=== PATIENT | male | born 1955 | race Caucasian/White ===

== ENCOUNTER 2018-05-24 08:15 | Outpatient (RCR) | payer OTHER, SELFPAY ==
--- NOTE | 2018-05-07 14:04 | PT.OIE ---
Current Diagnoses Bilateral primary osteoarthritis of hip (05/02/18) Unilateral primary osteoarthritis, right knee (05/02/18) Other specified postprocedural states (05/02/18) Provider Visit Care Team Role Provider Type Sanya Guerrero MD Primary Care Provider Physician Specialty: Family Practice Address: [address] [place] [address], [id number] Email: [email or web address] Shailesh Tobin MD Attending Provider Physician Specialty: Orthopedic Surgery Address: [address] [place] [address], [address] Email: [email or web address] Physical Therapy Initial Evaluation PT-OP-A Visit Information Start: 05/02/18 17:07 Freq: Status: Active Protocol: Document 05/02/18 17:13 EA (Rec: 05/02/18 17:27 EA [id number]) Out-Patient Physical Therapy Visit Information Visit Information Visit Type Initial Evaluation Visit Start Time 09:45 Visit Stop Time 10:30 Total Visit Minutes 45 Visit Number 1 Evaluation Information Evaluation Date 05/02/18 PT-OP-B Current Condition Start: 05/02/18 17:07 Freq: Status: Active Protocol: Document 05/02/18 17:13 EA (Rec: 05/02/18 17:27 EA [id number]) Current Condition History of Current Condition Onset Date 10 years ago Current Complaints gait difficulty due weakness on both LE's. History of Current Condition 09/2016-S/P thoracic surgery T9-T11 secondary to nerve compression which resulted to lower abdominal and LE weakness. Pt reports symptoms improved right after the surgery; states had pool therapy at [facility] and was discharged on January 2017 with LE's strength and sensory deficits. Patient had 2007 lumbar surgery due to LE weakness and was revised on 2017 due to increased in LE's symptoms. Prior Treatments and Tests 2007 - first lumbar surgery 2009- Lumbar surgery revisions 2017- Thoracic surgery (T9-T11 ) [id number] multiple cortison shots to low back Future Testing and Treatments Planned None at this time. Treatment Goals Patient/Caregiver Goals 1. Strengthen both LE so he could drive his car again 2. Be able to walk more than 500 ft with walker 3. be able to walk > 50 ft with STC Prior Functional Status Baseline Function- ADL's Independent Baseline Function- Mobility Independent Baseline Function- Other Patient was able to use ST cane and able to ambulate more than 100 ft prior to September 2016 surgery. Current Functional Impairments (Reported) Functional Limitations- ADL's Unable to drive a car Functional Limitations- Mobility/Gait Indep with walking aid with limited distance ambulation Functional Limitations- Work/School Disabled Personal Factors Other Personal Factors That May Effect Chronicity of the condition; Therapy/Recovery previous formal PT with limited results. Depression, occasional A-fib, Right knee OA, Excess body weight. PT-OP-C Subjective Start: 05/02/18 17:07 Freq: Status: Active Protocol: Document 05/02/18 17:10 EA (Rec: 05/07/18 07:29 EA [id number]) OP-PT Subjective Patient Comments Patient Comments Pt reports his low back pain is much improve at this time and his main concern is lower extremity weakness; states he feels that previous pool therapy helped him and would like undergo physical therapy in the pool again. Patient Reported Progress Improving Patient Questionnaires Lower Extremity Functional Scale LEFS Score 11 LEFS Impairment 80 to 99% Impaired (Score 1-16 ) Oswestry Low Back Index Oswestry Impairment 20 to 39% Impaired (Score 20- 39) PT-OP-D Balance Start: 05/02/18 17:07 Freq: Status: Active Protocol: Document 05/02/18 17:10 EA (Rec: 05/07/18 07:29 EA [id number]) OP-PT Balance Assessment Sitting Balance Static Sitting Balance Ability Good Dynamic Sitting Balance Ability Good Standing Balance Static Standing Balance Ability Good Dynamic Standing Balance Ability Fair Device Used 4 WW Standing Balance Comments Poor dynamic balance with no device to use. Montanez Fall Scale Copyright Permission Lisseth MARS, Lisseth RM, Nakita SJ. Development of a scale to identify the fall- prone patient. Can J Aging 1989;8;366-7. Coreen Montanez (2009). Preventing patient falls. (2nd ed). [place]: [place]. PT-OP-E Functional Tests Start: 05/02/18 17:07 Freq: Status: Active Protocol: Document 05/02/18 17:10 EA (Rec: 05/07/18 07:29 EA [id number]) Functional Tests Dynamic Gait Index (DGI) Score 13 DGI Impairment Rating 40 to <60% Impaired (Score 10- 14) Five Times Sit to Stand Test Score 3 reps in 10 seconds with hand support PT-OP-G Mobility & Gait Start: 05/02/18 17:07 Freq: Status: Active Protocol: Document 05/02/18 17:15 EA (Rec: 05/07/18 08:19 EA [id number]) OP Mobility Evaluation Functional Movements Squats Moderate difficulty PT-OP-H Neuro Start: 05/02/18 17:07 Freq: Status: Active Protocol: Document 05/02/18 17:10 EA (Rec: 05/07/18 07:29 EA [id number]) Sensation Evaluation Gross Sensation Gross Sensation Left LE Impaired Right LE Impaired Sensation Description Numbness Dermatome Impairments L2 L3 L4 L5 S1 S2 Deep Tendon Reflex & Clonus Assessment Deep Tendon Reflex Achilles Deep Tendon Reflex 1+ Diminished Patellar Deep Tendon Reflex 1+ Diminished Ankle Clonus Bilateral Clonus Assessment Absent PT-OP-J Posture/Palpation/Skin Start: 05/02/18 17:07 Freq: Status: Active Protocol: Document 05/02/18 17:10 EA (Rec: 05/07/18 07:29 EA [id number]) Posture Evaluation Position Standing Evaluation View Lateral Head/C-Spine Posture Forward Head T-Spine Posture Increased Kyphosis PT-OP-M Strength Start: 05/02/18 17:07 Freq: Status: Active Protocol: Document 05/02/18 17:10 EA (Rec: 05/07/18 07:29 EA [id number]) Trunk Strength Trunk Manual Muscle Testing Flexion 4- Good- Extension 4- Good- Rotation Left 4- Good- Rotation Right 4- Good- Lateral Flexion Left 4- Good- Lateral Flexion Right 4- Good- Hip Strength Hip Manual Muscle Testing Right Flexion (L2) 4- Good- Extension (S1) 3+ Fair+ Abduction 3 Fair Adduction 3 Fair External Rotation 3 Fair Internal Rotation 3 Fair Left Flexion (L2) 4- Good- Extension (S1) 3+ Fair+ Abduction 3 Fair Adduction 3 Fair External Rotation 3 Fair Internal Rotation 3 Fair Knee Strength Knee Manual Muscle Testing Right Flexion (S2) 4- Good- Extension (L3) 4- Good- Left Flexion (S2) 2+ Poor+ Extension (L3) 4- Good- Ankle/Foot Strength Ankle and Foot Manual Muscle Testing Right Dorsiflexion (L4) 2- Poor- Plantarflexion (S1) 3- Fair- Inversion 3- Fair- Eversion (S1) 3- Fair- Left Dorsiflexion (L4) 3 Fair Plantarflexion (S1) 3+ Fair+ Inversion 3 Fair Eversion (S1) 3 Fair PT-OP-Q Treatments Start: 05/02/18 17:07 Freq: Status: Active Protocol: Document 05/02/18 17:10 EA (Rec: 05/07/18 07:29 EA [id number]) Self-Care/Home Management Treatment Education Patient Education Body Mechanics Fall Risk Home Exercise Program Posture Safety PT-OP-T Assessment and Plan Start: 05/02/18 17:07 Freq: Status: Active Protocol: Document 05/02/18 17:10 EA (Rec: 05/07/18 07:29 EA [id number]) Physical Therapy Assessment Rehab Potential Rehabilitation Potential Fair Evaluation Complexity Number of Personal Factors/Comorbidities 3 or More Number of Body Systems Impaired 3 Clinical Presentation at Evaluation Evolving Impairments Impairments Activity Tolerance Balance Functional Mobility Gait Pain Posture Soft Tissue Mobility Strength Other Concerns Fall Risk yes Goals Four Impairment LEFS impairment score of 11/80 [place] Code Enforcement Officer Goal (LTG) Pt will have LEFS score of at least 40 LTG Duration 4 wks Three Impairment Decreased ambulation tolerance Senior Care Goal (LTG) Pt will ambulate more than 300 ft with FWW LTG Duration 4 wks Two Impairment Impaired static/dynamic balance [place] Code Enforcement Officer Goal (LTG) Pt will increase static and dynamic balance to prevent falls and improve functional transfers and mobility LTG Duration 4 wks One Impairment Decreased both LE's strength [place] Code Enforcement Officer Goal (LTG) Patient will increase both LE' s strength by 1/2- 1 grade to enhance static and dynamic balance control, enhance distance mobility. LTG Duration 4 wks Assessment Summary Assessment Pleasant 62 y/o M patient with history of multiple lumbar surgeries and recent thoracic surgery. Today patient presented with both LE's strength and light touch/pain/ sensory deficits from hip down to ankle region. No noted signs of coordination and proprioception deficits. Due to muscular and sensory deficits , patient exhibits impaired functional mobility, impaired standing tolerance, and balance. Patient will benefit with skilled PT particularly the pool therapy to address the aforementioned deficits. Physical Therapy Plan Frequency and Duration Frequency of Treatment 2x/Week Plan of Care Start Date 05/02/18 Plan of Care End Date 07/11/18 Therapeutic Interventions Therapeutic Interventions Aquatic Therapy Balance Training Gait Training Home Exercise Program Manual Therapy Patient/Caregiver Education Self-Care/Home Management Soft Tissue Mobilization Therapeutic Exercises Modalities Cold Pack/Ice Massage Next Visit Focus/Plan Next Note Type Treatment Note
--- NOTE | 2018-05-07 14:04 | PT.OPPOC ---
Current Diagnoses Bilateral primary osteoarthritis of hip (05/02/18) Unilateral primary osteoarthritis, right knee (05/02/18) Other specified postprocedural states (05/02/18) Provider Visit Care Team Role Provider Type Sanya Guerrero MD Primary Care Provider Physician Specialty: Family Practice Address: [address] [place] [address], [address] Email: [email or web address] Shailesh Tobin MD Attending Provider Physician Specialty: Orthopedic Surgery Address: [address] [place] [address], [address] Email: [email or web address] Plan Of Care PT-OP-T Assessment and Plan Start: 05/02/18 17:07 Freq: Status: Active Protocol: Document 05/02/18 17:10 EA (Rec: 05/07/18 07:29 EA [id number]) Physical Therapy Assessment Rehab Potential Rehabilitation Potential Fair Evaluation Complexity Number of Personal Factors/Comorbidities 3 or More Number of Body Systems Impaired 3 Clinical Presentation at Evaluation Evolving Impairments Impairments Activity Tolerance Balance Functional Mobility Gait Pain Posture Soft Tissue Mobility Strength Other Concerns Fall Risk yes Goals Four Impairment LEFS impairment score of 11/80 Racebook Writer Goal (LTG) Pt will have LEFS score of at least 40 LTG Duration 4 wks Three Impairment Decreased ambulation tolerance Racebook Writer Goal (LTG) Pt will ambulate more than 300 ft with FWW LTG Duration 4 wks Two Impairment Impaired static/dynamic balance Racebook Writer Goal (LTG) Pt will increase static and dynamic balance to prevent falls and improve functional transfers and mobility LTG Duration 4 wks One Impairment Decreased both LE's strength Racebook Writer Goal (LTG) Patient will increase both LE' s strength by 1/2- 1 grade to enhance static and dynamic balance control, enhance distance mobility. LTG Duration 4 wks Assessment Summary Assessment Pleasant 62 y/o M patient with history of multiple lumbar surgeries and recent thoracic surgery. Today patient presented with both LE's strength and light touch/pain/ sensory deficits from hip down to ankle region. No noted signs of coordination and proprioception deficits. Due to muscular and sensory deficits , patient exhibits impaired functional mobility, impaired standing tolerance, and balance. Patient will benefit with skilled PT particularly the pool therapy to address the aforementioned deficits. Physical Therapy Plan Frequency and Duration Frequency of Treatment 2x/Week Plan of Care Start Date 05/02/18 Plan of Care End Date 07/11/18 Therapeutic Interventions Therapeutic Interventions Aquatic Therapy Balance Training Gait Training Home Exercise Program Manual Therapy Patient/Caregiver Education Self-Care/Home Management Soft Tissue Mobilization Therapeutic Exercises Modalities Cold Pack/Ice Massage Next Visit Focus/Plan Next Note Type Treatment Note Plan of Care Dates Plan of Care Start Date 05/02/18 Plan of Care End Date 07/11/18 Please Sign and Return: I have reviewed this Plan of Care and certify that the skilled therapy services above are required to meet the patient?s needs. Physician Signature Date Printed Name and Credentials Clinical Instructor Signature Printed Name and Credentials
--- NOTE | 2018-05-09 09:01 | PT.OTN ---
Current Diagnoses Bilateral primary osteoarthritis of hip (05/09/18) Unilateral primary osteoarthritis, right knee (05/09/18) Other specified postprocedural states (05/09/18) Physical Therapy Treatment Note PT-OP-A Visit Information Start: 05/02/18 17:07 Freq: Status: Active Protocol: Document 05/09/18 08:14 EA (Rec: 05/09/18 09:01 EA [id number]) Out-Patient Physical Therapy Visit Information Visit Information Visit Type Treatment Note Visit Start Time 08:15 Visit Stop Time 09:00 Total Visit Minutes 45 Visit Number 2 PT-OP-B Current Condition Start: 05/02/18 17:07 Freq: Status: Active Protocol: Document 05/02/18 17:13 EA (Rec: 05/02/18 17:27 EA [id number]) Current Condition History of Current Condition Onset Date 10 years ago Current Complaints gait difficulty due weakness on both LE's. History of Current Condition 09/2016-S/P thoracic surgery T9-T11 secondary to nerve compression which resulted to lower abdominal and LE weakness. Pt reports symptoms improved right after the surgery; states had pool therapy at [facility] and was discharged on January 2017 with LE's strength and sensory deficits. Patient had 2007 lumbar surgery due to LE weakness and was revised on 2017 due to increased in LE's symptoms. Prior Treatments and Tests 2007 - first lumbar surgery 2009- Lumbar surgery revisions 2016- Thoracic surgery (T9-T11 ) [id number] multiple cortison shots to low back Future Testing and Treatments Planned None at this time. Treatment Goals Patient/Caregiver Goals 1. Strengthen both LE so he could drive his car again 2. Be able to walk more than 500 ft with walker 3. be able to walk > 50 ft with STC Prior Functional Status Baseline Function- ADL's Independent Baseline Function- Mobility Independent Baseline Function- Other Patient was able to use ST cane and able to ambulate more than 100 ft prior to September 2016 surgery. Current Functional Impairments (Reported) Functional Limitations- ADL's Unable to drive a car Functional Limitations- Mobility/Gait Indep with walking aid with limited distance ambulation Functional Limitations- Work/School Disabled Personal Factors Other Personal Factors That May Effect Chronicity of the condition; Therapy/Recovery previous formal PT with limited results. Depression, occasional A-fib, Right knee OA, Excess body weight. PT-OP-C Subjective Start: 05/02/18 17:07 Freq: Status: Active Protocol: Document 05/09/18 08:14 EA (Rec: 05/09/18 09:01 EA [id number]) OP-PT Subjective Patient Comments Patient Comments Patient reports that having a lumbar injection medication is helping his both legs sensory back; states that his main goal is to improve his mobility; states back pain I can describes is good pain. Patient Reported Progress Improving PT-OP-D Balance Start: 05/02/18 17:07 Freq: Status: Active Protocol: Document 05/02/18 17:10 EA (Rec: 05/07/18 07:29 EA [id number]) OP-PT Balance Assessment Sitting Balance Static Sitting Balance Ability Good Dynamic Sitting Balance Ability Good Standing Balance Static Standing Balance Ability Good Dynamic Standing Balance Ability Fair Device Used 4 WW Standing Balance Comments Poor dynamic balance with no device to use. Montanez Fall Scale Copyright Permission Lisseth MARS, Lisseth RM, Nakita SJ. Development of a scale to identify the fall- prone patient. Can J Aging 1989;8;366-7. Coreen Montanez (2009). Preventing patient falls. (2nd ed). [place]: [place]. PT-OP-E Functional Tests Start: 05/02/18 17:07 Freq: Status: Active Protocol: Document 05/02/18 17:10 EA (Rec: 05/07/18 07:29 EA [id number]) Functional Tests Dynamic Gait Index (DGI) Score 13 DGI Impairment Rating 40 to <60% Impaired (Score 10- 14) Five Times Sit to Stand Test Score 3 reps in 10 seconds with hand support PT-OP-G Mobility & Gait Start: 05/02/18 17:07 Freq: Status: Active Protocol: Document 05/02/18 17:15 EA (Rec: 05/07/18 08:19 EA [id number]) OP Mobility Evaluation Functional Movements Squats Moderate difficulty PT-OP-H Neuro Start: 05/02/18 17:07 Freq: Status: Active Protocol: Document 05/02/18 17:10 EA (Rec: 05/07/18 07:29 EA [id number]) Sensation Evaluation Gross Sensation Gross Sensation Left LE Impaired Right LE Impaired Sensation Description Numbness Dermatome Impairments L2 L3 L4 L5 S1 S2 Deep Tendon Reflex & Clonus Assessment Deep Tendon Reflex Achilles Deep Tendon Reflex 1+ Diminished Patellar Deep Tendon Reflex 1+ Diminished Ankle Clonus Bilateral Clonus Assessment Absent PT-OP-J Posture/Palpation/Skin Start: 05/02/18 17:07 Freq: Status: Active Protocol: Document 05/02/18 17:10 EA (Rec: 05/07/18 07:29 EA [id number]) Posture Evaluation Position Standing Evaluation View Lateral Head/C-Spine Posture Forward Head T-Spine Posture Increased Kyphosis PT-OP-M Strength Start: 05/02/18 17:07 Freq: Status: Active Protocol: Document 05/02/18 17:10 EA (Rec: 05/07/18 07:29 EA [id number]) Trunk Strength Trunk Manual Muscle Testing Flexion 4- Good- Extension 4- Good- Rotation Left 4- Good- Rotation Right 4- Good- Lateral Flexion Left 4- Good- Lateral Flexion Right 4- Good- Hip Strength Hip Manual Muscle Testing Right Flexion (L2) 4- Good- Extension (S1) 3+ Fair+ Abduction 3 Fair Adduction 3 Fair External Rotation 3 Fair Internal Rotation 3 Fair Left Flexion (L2) 4- Good- Extension (S1) 3+ Fair+ Abduction 3 Fair Adduction 3 Fair External Rotation 3 Fair Internal Rotation 3 Fair Knee Strength Knee Manual Muscle Testing Right Flexion (S2) 4- Good- Extension (L3) 4- Good- Left Flexion (S2) 2+ Poor+ Extension (L3) 4- Good- Ankle/Foot Strength Ankle and Foot Manual Muscle Testing Right Dorsiflexion (L4) 2- Poor- Plantarflexion (S1) 3- Fair- Inversion 3- Fair- Eversion (S1) 3- Fair- Left Dorsiflexion (L4) 3 Fair Plantarflexion (S1) 3+ Fair+ Inversion 3 Fair Eversion (S1) 3 Fair PT-OP-Q Treatments Start: 05/02/18 17:07 Freq: Status: Active Protocol: Document 05/09/18 08:14 EA (Rec: 05/09/18 09:01 EA [id number]) Cardio Equipment Recumbent Stepper (Sci-Fit) Duration (Minutes) 10 Resistance 2-3 Seat Position 20 Gym Equipment Cable Column (Body Solid) Leg Extension Resistance 20 Reps/Time x 12 reps x 2 Hip Adduction Resistance 50LBS Reps/Time X 15 REPS X 2 SETS Hip Abduction Resistance 10 Reps/Time X 12 X 2 SETS Shuttle Recovery Unilateral Squats Details 50 Shuttle Recovery Platform Stable Reps/Time X 15 REPS X 2 SETS Bilateral Squats Resistance 112# Shuttle Recovery Platform Stable Reps/Time 12-15 REPS X 2 PT-OP-T Assessment and Plan Start: 05/02/18 17:07 Freq: Status: Active Protocol: Document 05/09/18 08:14 EA (Rec: 05/09/18 09:01 EA [id number]) Physical Therapy Assessment Assessment Summary Assessment Patient tolerated treatment well. Cont with current plan. Physical Therapy Plan Next Visit Focus/Plan Next Note Type Treatment Note Next Visit Plan Provide HEP.
--- NOTE | 2018-05-17 09:19 | PT.OTN ---
Current Diagnoses Bilateral primary osteoarthritis of hip (05/17/18) Unilateral primary osteoarthritis, right knee (05/17/18) Other specified postprocedural states (05/17/18) Physical Therapy Treatment Note PT-OP-A Visit Information Start: 05/02/18 17:07 Freq: Status: Active Protocol: Document 05/17/18 08:14 SAK (Rec: 05/17/18 09:07 SAK [id number]) Out-Patient Physical Therapy Visit Information Visit Information Visit Type Treatment Note Visit Start Time 08:15 Visit Stop Time 09:00 Total Visit Minutes 45 Visit Number 3 PT-OP-B Current Condition Start: 05/02/18 17:07 Freq: Status: Active Protocol: Document 05/02/18 17:13 EA (Rec: 05/02/18 17:27 EA [id number]) Current Condition History of Current Condition Onset Date 10 years ago Current Complaints gait difficulty due weakness on both LE's. History of Current Condition 09/2016-S/P thoracic surgery T9-T11 secondary to nerve compression which resulted to lower abdominal and LE weakness. Pt reports symptoms improved right after the surgery; states had pool therapy at [facility] and was discharged on January 2017 with LE's strength and sensory deficits. Patient had 2007 lumbar surgery due to LE weakness and was revised on 2017 due to increased in LE's symptoms. Prior Treatments and Tests 2007 - first lumbar surgery 2009- Lumbar surgery revisions 2016- Thoracic surgery (T9-T11 ) [id number] multiple cortison shots to low back Future Testing and Treatments Planned None at this time. Treatment Goals Patient/Caregiver Goals 1. Strengthen both LE so he could drive his car again 2. Be able to walk more than 500 ft with walker 3. be able to walk > 50 ft with STC Prior Functional Status Baseline Function- ADL's Independent Baseline Function- Mobility Independent Baseline Function- Other Patient was able to use ST cane and able to ambulate more than 100 ft prior to September 2016 surgery. Current Functional Impairments (Reported) Functional Limitations- ADL's Unable to drive a car Functional Limitations- Mobility/Gait Indep with walking aid with limited distance ambulation Functional Limitations- Work/School Disabled Personal Factors Other Personal Factors That May Effect Chronicity of the condition; Therapy/Recovery previous formal PT with limited results. Depression, occasional A-fib, Right knee OA, Excess body weight. PT-OP-C Subjective Start: 05/02/18 17:07 Freq: Status: Active Protocol: Document 05/17/18 08:14 SAK (Rec: 05/17/18 09:07 SAK [id number]) OP-PT Subjective Patient Comments Patient Comments 3 days after last session reports significant increase in pain and difficulty walking ; layed down on bed, took Flexeril, stayed in bed, yesterday much better. Sees Dr. Bear 05/31. States shots seem to be working, increasing feeling in LE's. PT-OP-D Balance Start: 05/02/18 17:07 Freq: Status: Active Protocol: Document 05/02/18 17:10 EA (Rec: 05/07/18 07:29 EA [id number]) OP-PT Balance Assessment Sitting Balance Static Sitting Balance Ability Good Dynamic Sitting Balance Ability Good Standing Balance Static Standing Balance Ability Good Dynamic Standing Balance Ability Fair Device Used 4 WW Standing Balance Comments Poor dynamic balance with no device to use. Montanez Fall Scale Copyright Permission Lisseth MARS, Lisseth RM, Nakita SJ. Development of a scale to identify the fall- prone patient. Can J Aging 1989;8;366-7. Coreen Montanez (2009). Preventing patient falls. (2nd ed). [place]: [place]. PT-OP-E Functional Tests Start: 05/02/18 17:07 Freq: Status: Active Protocol: Document 05/02/18 17:10 EA (Rec: 05/07/18 07:29 EA [id number]) Functional Tests Dynamic Gait Index (DGI) Score 13 DGI Impairment Rating 40 to <60% Impaired (Score 10- 14) Five Times Sit to Stand Test Score 3 reps in 10 seconds with hand support PT-OP-G Mobility & Gait Start: 05/02/18 17:07 Freq: Status: Active Protocol: Document 05/02/18 17:15 EA (Rec: 05/07/18 08:19 EA [id number]) OP Mobility Evaluation Functional Movements Squats Moderate difficulty PT-OP-H Neuro Start: 05/02/18 17:07 Freq: Status: Active Protocol: Document 05/02/18 17:10 EA (Rec: 05/07/18 07:29 EA [id number]) Sensation Evaluation Gross Sensation Gross Sensation Left LE Impaired Right LE Impaired Sensation Description Numbness Dermatome Impairments L2 L3 L4 L5 S1 S2 Deep Tendon Reflex & Clonus Assessment Deep Tendon Reflex Achilles Deep Tendon Reflex 1+ Diminished Patellar Deep Tendon Reflex 1+ Diminished Ankle Clonus Bilateral Clonus Assessment Absent PT-OP-J Posture/Palpation/Skin Start: 05/02/18 17:07 Freq: Status: Active Protocol: Document 05/02/18 17:10 EA (Rec: 05/07/18 07:29 EA [id number]) Posture Evaluation Position Standing Evaluation View Lateral Head/C-Spine Posture Forward Head T-Spine Posture Increased Kyphosis PT-OP-M Strength Start: 05/02/18 17:07 Freq: Status: Active Protocol: Document 05/02/18 17:10 EA (Rec: 05/07/18 07:29 EA [id number]) Trunk Strength Trunk Manual Muscle Testing Flexion 4- Good- Extension 4- Good- Rotation Left 4- Good- Rotation Right 4- Good- Lateral Flexion Left 4- Good- Lateral Flexion Right 4- Good- Hip Strength Hip Manual Muscle Testing Right Flexion (L2) 4- Good- Extension (S1) 3+ Fair+ Abduction 3 Fair Adduction 3 Fair External Rotation 3 Fair Internal Rotation 3 Fair Left Flexion (L2) 4- Good- Extension (S1) 3+ Fair+ Abduction 3 Fair Adduction 3 Fair External Rotation 3 Fair Internal Rotation 3 Fair Knee Strength Knee Manual Muscle Testing Right Flexion (S2) 4- Good- Extension (L3) 4- Good- Left Flexion (S2) 2+ Poor+ Extension (L3) 4- Good- Ankle/Foot Strength Ankle and Foot Manual Muscle Testing Right Dorsiflexion (L4) 2- Poor- Plantarflexion (S1) 3- Fair- Inversion 3- Fair- Eversion (S1) 3- Fair- Left Dorsiflexion (L4) 3 Fair Plantarflexion (S1) 3+ Fair+ Inversion 3 Fair Eversion (S1) 3 Fair PT-OP-Q Treatments Start: 05/02/18 17:07 Freq: Status: Active Protocol: Document 05/17/18 08:14 SAK (Rec: 05/17/18 09:07 SAK [id number]) Cardio Equipment Recumbent Stepper (Sci-Fit) Duration (Minutes) 10 Resistance 2-3 Seat Position 20 Gym Equipment Cable Column (Body Solid) Leg Extension Resistance 30 Reps/Time x 12 reps x 2 Shuttle Recovery Unilateral Squats Details 50 Shuttle Recovery Platform Stable Reps/Time X 15 REPS X 2 SETS Bilateral Squats Resistance 112# Shuttle Recovery Platform Stable Reps/Time 12-15 REPS X 2 Self-Care/Home Management Treatment Education Other Education Education regarding proper height for assistive device; need for different walker. Patient reports [facility] not [facility] so he and his ordered current walker from [employer]; he states he understands and will search for better fitting walker. PT-OP-T Assessment and Plan Start: 05/02/18 17:07 Freq: Status: Active Protocol: Document 05/17/18 08:14 [facility] (Rec: 05/17/18 09:07 [facility] [id number]) Physical Therapy Assessment Impairments Impairments Activity Tolerance Balance Functional Mobility Gait Pain Posture Soft Tissue Mobility Strength Other Concerns Fall Risk yes Goals Four Impairment LEFS impairment score of 11/80 Group Home Goal (LTG) Pt will have LEFS score of at least 40 LTG Duration 4 wks Three Impairment Decreased ambulation tolerance Financial Counselor Goal (LTG) Pt will ambulate more than 300 ft with FWW LTG Duration 4 wks Two Impairment Impaired static/dynamic balance Financial Counselor Goal (LTG) Pt will increase static and dynamic balance to prevent falls and improve functional transfers and mobility LTG Duration 4 wks One Impairment Decreased both LE's strength Financial Counselor Goal (LTG) Patient will increase both LE' s strength by 1/2- 1 grade to enhance static and dynamic balance control, enhance distance mobility. LTG Duration 4 wks Assessment Summary Assessment Despite adverse response of muscle spasms and pain after first PT treatment patient didn't want to ease up on workout, though at end requested we not do hip ab/ad machine due to fatigue and muscle soreness. Refused ice, stated he will ice back and thighs at home. Demonstrated good understanding of need for better fitting walker. States his forearm crutches are correct height for him. Physical Therapy Plan Frequency and Duration Frequency of Treatment 2x/Week Plan of Care Start Date 05/02/18 Plan of Care End Date 07/11/18 Therapeutic Interventions Therapeutic Interventions Aquatic Therapy Balance Training Gait Training Home Exercise Program Manual Therapy Patient/Caregiver Education Self-Care/Home Management Soft Tissue Mobilization Therapeutic Exercises Modalities Cold Pack/Ice Massage Next Visit Focus/Plan Next Note Type Treatment Note Next Visit Plan Patient to bring forearm crutches, will do gait training, cont with ther ex, possibly decrease resistance, modify as indicated based on response.
--- NOTE | 2018-05-22 13:46 | PT.OTN ---
Current Diagnoses Bilateral primary osteoarthritis of hip (05/22/18) Unilateral primary osteoarthritis, right knee (05/22/18) Other specified postprocedural states (05/22/18) Physical Therapy Treatment Note PT-OP-A Visit Information Start: 05/02/18 17:07 Freq: Status: Active Protocol: Document 05/22/18 12:23 EA (Rec: 05/22/18 13:02 EA [id number]) Out-Patient Physical Therapy Visit Information Visit Information Visit Start Time 12:15 Visit Stop Time 13:00 Visit Number 4 PT-OP-B Current Condition Start: 05/02/18 17:07 Freq: Status: Active Protocol: Document 05/02/18 17:13 EA (Rec: 05/02/18 17:27 EA [id number]) Current Condition History of Current Condition Onset Date 10 years ago Current Complaints gait difficulty due weakness on both LE's. History of Current Condition 09/2016-S/P thoracic surgery T9-T11 secondary to nerve compression which resulted to lower abdominal and LE weakness. Pt reports symptoms improved right after the surgery; states had pool therapy at [facility] and was discharged on January 2017 with LE's strength and sensory deficits. Patient had 2008 lumbar surgery due to LE weakness and was revised on 2017 due to increased in LE's symptoms. Prior Treatments and Tests 2007 - first lumbar surgery 2009- Lumbar surgery revisions 2016- Thoracic surgery (T9-T11 ) [id number] multiple cortison shots to low back Future Testing and Treatments Planned None at this time. Treatment Goals Patient/Caregiver Goals 1. Strengthen both LE so he could drive his car again 2. Be able to walk more than 500 ft with walker 3. be able to walk > 50 ft with STC Prior Functional Status Baseline Function- ADL's Independent Baseline Function- Mobility Independent Baseline Function- Other Patient was able to use ST cane and able to ambulate more than 100 ft prior to September 2016 surgery. Current Functional Impairments (Reported) Functional Limitations- ADL's Unable to drive a car Functional Limitations- Mobility/Gait Indep with walking aid with limited distance ambulation Functional Limitations- Work/School Disabled Personal Factors Other Personal Factors That May Effect Chronicity of the condition; Therapy/Recovery previous formal PT with limited results. Depression, occasional A-fib, Right knee OA, Excess body weight. PT-OP-C Subjective Start: 05/02/18 17:07 Freq: Status: Active Protocol: Document 05/22/18 12:23 EA (Rec: 05/22/18 13:02 EA [id number]) OP-PT Subjective Patient Comments Patient Comments Pt reports previous session did not give any pain or soreness; states he has been on feet at home feels his mobility is increasing. Pt stated forgot to bring two canes and will plan to bring next session. PT-OP-D Balance Start: 05/02/18 17:07 Freq: Status: Active Protocol: Document 05/02/18 17:10 EA (Rec: 05/07/18 07:29 EA [id number]) OP-PT Balance Assessment Sitting Balance Static Sitting Balance Ability Good Dynamic Sitting Balance Ability Good Standing Balance Static Standing Balance Ability Good Dynamic Standing Balance Ability Fair Device Used 4 WW Standing Balance Comments Poor dynamic balance with no device to use. Montanez Fall Scale Copyright Permission Lisseth MARS, Lisseth RM, Nakita SJ. Development of a scale to identify the fall- prone patient. Can J Aging 1989;8;366-7. Coreen Montanez (2009). Preventing patient falls. (2nd ed). [place]: [place]. PT-OP-E Functional Tests Start: 05/02/18 17:07 Freq: Status: Active Protocol: Document 05/02/18 17:10 EA (Rec: 05/07/18 07:29 EA [id number]) Functional Tests Dynamic Gait Index (DGI) Score 13 DGI Impairment Rating 40 to <60% Impaired (Score 10- 14) Five Times Sit to Stand Test Score 3 reps in 10 seconds with hand support PT-OP-G Mobility & Gait Start: 05/02/18 17:07 Freq: Status: Active Protocol: Document 05/02/18 17:15 EA (Rec: 05/07/18 08:19 EA [id number]) OP Mobility Evaluation Functional Movements Squats Moderate difficulty PT-OP-H Neuro Start: 05/02/18 17:07 Freq: Status: Active Protocol: Document 05/02/18 17:10 EA (Rec: 05/07/18 07:29 EA [id number]) Sensation Evaluation Gross Sensation Gross Sensation Left LE Impaired Right LE Impaired Sensation Description Numbness Dermatome Impairments L2 L3 L4 L5 S1 S2 Deep Tendon Reflex & Clonus Assessment Deep Tendon Reflex Achilles Deep Tendon Reflex 1+ Diminished Patellar Deep Tendon Reflex 1+ Diminished Ankle Clonus Bilateral Clonus Assessment Absent PT-OP-J Posture/Palpation/Skin Start: 05/02/18 17:07 Freq: Status: Active Protocol: Document 05/02/18 17:10 EA (Rec: 05/07/18 07:29 EA [id number]) Posture Evaluation Position Standing Evaluation View Lateral Head/C-Spine Posture Forward Head T-Spine Posture Increased Kyphosis PT-OP-M Strength Start: 05/02/18 17:07 Freq: Status: Active Protocol: Document 05/02/18 17:10 EA (Rec: 05/07/18 07:29 EA [id number]) Trunk Strength Trunk Manual Muscle Testing Flexion 4- Good- Extension 4- Good- Rotation Left 4- Good- Rotation Right 4- Good- Lateral Flexion Left 4- Good- Lateral Flexion Right 4- Good- Hip Strength Hip Manual Muscle Testing Right Flexion (L2) 4- Good- Extension (S1) 3+ Fair+ Abduction 3 Fair Adduction 3 Fair External Rotation 3 Fair Internal Rotation 3 Fair Left Flexion (L2) 4- Good- Extension (S1) 3+ Fair+ Abduction 3 Fair Adduction 3 Fair External Rotation 3 Fair Internal Rotation 3 Fair Knee Strength Knee Manual Muscle Testing Right Flexion (S2) 4- Good- Extension (L3) 4- Good- Left Flexion (S2) 2+ Poor+ Extension (L3) 4- Good- Ankle/Foot Strength Ankle and Foot Manual Muscle Testing Right Dorsiflexion (L4) 2- Poor- Plantarflexion (S1) 3- Fair- Inversion 3- Fair- Eversion (S1) 3- Fair- Left Dorsiflexion (L4) 3 Fair Plantarflexion (S1) 3+ Fair+ Inversion 3 Fair Eversion (S1) 3 Fair PT-OP-Q Treatments Start: 05/02/18 17:07 Freq: Status: Active Protocol: Document 05/22/18 12:23 EA (Rec: 05/22/18 13:02 EA [id number]) Cardio Equipment Recumbent Stepper (Sci-Fit) Duration (Minutes) 10 Resistance 2-3 Seat Position 20 Gym Equipment Shuttle Recovery Unilateral Squats Details 75 Shuttle Recovery Platform Stable Reps/Time X 15 REPS X 2 SETS Bilateral Squats Resistance 125# Shuttle Recovery Platform Stable Reps/Time 12-15 REPS X 2 Therapeutic Exercises Standing Exercises 4 Standing Exercise Name // bars standin hip ABD Reps/Minutes x 10 reps x 2 sets 3 Standing Exercise Name // bars marching x 15 reps x 2 sets 2 Standing Exercise Name // bars standing tolerance with upright posture Reps/Minutes x 2 mins 1 Standing Exercise Name // bars sit to stand Reps/Minutes x 10 reps with support PT-OP-T Assessment and Plan Start: 05/02/18 17:07 Freq: Status: Active Protocol: Document 05/22/18 12:23 EA (Rec: 05/22/18 13:02 EA [id number]) Physical Therapy Assessment Assessment Summary Assessment Tolerated treatment well. cont with current plan. Physical Therapy Plan Next Visit Focus/Plan Next Note Type Treatment Note Next Visit Plan Patient to bring forearm crutches, will do gait training, cont with the ex, possibly decrease resistance, modify as indicated based on response.
--- NOTE | 2018-05-24 10:59 | PT.OTN ---
Current Diagnoses Bilateral primary osteoarthritis of hip (05/24/18) Unilateral primary osteoarthritis, right knee (05/24/18) Other specified postprocedural states (05/24/18) Physical Therapy Treatment Note PT-OP-A Visit Information Start: 05/02/18 17:07 Freq: Status: Active Protocol: Document 05/24/18 08:21 SAK (Rec: 05/24/18 08:50 SAK [id number]) Out-Patient Physical Therapy Visit Information Visit Information Visit Start Time 08:15 Visit Stop Time 09:00 Total Visit Minutes 45 Visit Number 5 PT-OP-B Current Condition Start: 05/02/18 17:07 Freq: Status: Active Protocol: Document 05/02/18 17:13 EA (Rec: 05/02/18 17:27 EA [id number]) Current Condition History of Current Condition Onset Date 10 years ago Current Complaints gait difficulty due weakness on both LE's. History of Current Condition 09/2016-S/P thoracic surgery T9-T11 secondary to nerve compression which resulted to lower abdominal and LE weakness. Pt reports symptoms improved right after the surgery; states had pool therapy at [facility] and was discharged on January 2017 with LE's strength and sensory deficits. Patient had 2007 lumbar surgery due to LE weakness and was revised on 2017 due to increased in LE's symptoms. Prior Treatments and Tests 2007 - first lumbar surgery 2009- Lumbar surgery revisions 2016- Thoracic surgery (T9-T11 ) [id number] multiple cortison shots to low back Future Testing and Treatments Planned None at this time. Treatment Goals Patient/Caregiver Goals 1. Strengthen both LE so he could drive his car again 2. Be able to walk more than 500 ft with walker 3. be able to walk > 50 ft with STC Prior Functional Status Baseline Function- ADL's Independent Baseline Function- Mobility Independent Baseline Function- Other Patient was able to use ST cane and able to ambulate more than 100 ft prior to September 2016 surgery. Current Functional Impairments (Reported) Functional Limitations- ADL's Unable to drive a car Functional Limitations- Mobility/Gait Indep with walking aid with limited distance ambulation Functional Limitations- Work/School Disabled Personal Factors Other Personal Factors That May Effect Chronicity of the condition; Therapy/Recovery previous formal PT with limited results. Depression, occasional A-fib, Right knee OA, Excess body weight. PT-OP-C Subjective Start: 05/02/18 17:07 Freq: Status: Active Protocol: Document 05/24/18 08:21 SAK (Rec: 05/24/18 08:50 SAK [id number]) OP-PT Subjective Patient Comments Patient Comments Reports some intestinal issues , not feeling well. Brought forearm crutches. PT-OP-D Balance Start: 05/02/18 17:07 Freq: Status: Active Protocol: Document 05/02/18 17:10 EA (Rec: 05/07/18 07:29 EA [id number]) OP-PT Balance Assessment Sitting Balance Static Sitting Balance Ability Good Dynamic Sitting Balance Ability Good Standing Balance Static Standing Balance Ability Good Dynamic Standing Balance Ability Fair Device Used 4 WW Standing Balance Comments Poor dynamic balance with no device to use. Lisseth Fall Scale Copyright Permission Lisseth MARS, Lisseth RM, Nakita SJ. Development of a scale to identify the fall- prone patient. Can J Aging 1989;8;366-7. Coreen Montanez (2009). Preventing patient falls. (2nd ed). [place]: [place]. PT-OP-E Functional Tests Start: 05/02/18 17:07 Freq: Status: Active Protocol: Document 05/02/18 17:10 EA (Rec: 05/07/18 07:29 EA [id number]) Functional Tests Dynamic Gait Index (DGI) Score 13 DGI Impairment Rating 40 to <60% Impaired (Score 10- 14) Five Times Sit to Stand Test Score 3 reps in 10 seconds with hand support PT-OP-G Mobility & Gait Start: 05/02/18 17:07 Freq: Status: Active Protocol: Document 05/02/18 17:15 EA (Rec: 05/07/18 08:19 EA [id number]) OP Mobility Evaluation Functional Movements Squats Moderate difficulty PT-OP-H Neuro Start: 05/02/18 17:07 Freq: Status: Active Protocol: Document 05/02/18 17:10 EA (Rec: 05/07/18 07:29 EA [id number]) Sensation Evaluation Gross Sensation Gross Sensation Left LE Impaired Right LE Impaired Sensation Description Numbness Dermatome Impairments L2 L3 L4 L5 S1 S2 Deep Tendon Reflex & Clonus Assessment Deep Tendon Reflex Achilles Deep Tendon Reflex 1+ Diminished Patellar Deep Tendon Reflex 1+ Diminished Ankle Clonus Bilateral Clonus Assessment Absent PT-OP-J Posture/Palpation/Skin Start: 05/02/18 17:07 Freq: Status: Active Protocol: Document 05/02/18 17:10 EA (Rec: 05/07/18 07:29 EA [id number]) Posture Evaluation Position Standing Evaluation View Lateral Head/C-Spine Posture Forward Head T-Spine Posture Increased Kyphosis PT-OP-M Strength Start: 05/02/18 17:07 Freq: Status: Active Protocol: Document 05/02/18 17:10 EA (Rec: 05/07/18 07:29 EA [id number]) Trunk Strength Trunk Manual Muscle Testing Flexion 4- Good- Extension 4- Good- Rotation Left 4- Good- Rotation Right 4- Good- Lateral Flexion Left 4- Good- Lateral Flexion Right 4- Good- Hip Strength Hip Manual Muscle Testing Right Flexion (L2) 4- Good- Extension (S1) 3+ Fair+ Abduction 3 Fair Adduction 3 Fair External Rotation 3 Fair Internal Rotation 3 Fair Left Flexion (L2) 4- Good- Extension (S1) 3+ Fair+ Abduction 3 Fair Adduction 3 Fair External Rotation 3 Fair Internal Rotation 3 Fair Knee Strength Knee Manual Muscle Testing Right Flexion (S2) 4- Good- Extension (L3) 4- Good- Left Flexion (S2) 2+ Poor+ Extension (L3) 4- Good- Ankle/Foot Strength Ankle and Foot Manual Muscle Testing Right Dorsiflexion (L4) 2- Poor- Plantarflexion (S1) 3- Fair- Inversion 3- Fair- Eversion (S1) 3- Fair- Left Dorsiflexion (L4) 3 Fair Plantarflexion (S1) 3+ Fair+ Inversion 3 Fair Eversion (S1) 3 Fair PT-OP-Q Treatments Start: 05/02/18 17:07 Freq: Status: Active Protocol: Document 05/24/18 08:21 SAK (Rec: 05/24/18 08:50 SAK [id number]) Cardio Equipment Recumbent Stepper (Sci-Fit) Duration (Minutes) 11 Resistance 4 Seat Position 20 Gym Equipment Shuttle Recovery Unilateral Squats Details 75 Shuttle Recovery Platform Stable Reps/Time X 15 REPS X 2 SETS Bilateral Squats Resistance 125# Shuttle Recovery Platform Stable Reps/Time 12-15 REPS X 2 Gait Training Gait Activity 1 Description gait with forearm crutches Level of Assistance CGA Comments 15' x 2, 40' x 1 PT-OP-T Assessment and Plan Start: 05/02/18 17:07 Freq: Status: Active Protocol: Document 05/24/18 08:21 INÉS (Rec: 05/24/18 08:50 SAK [id number]) Physical Therapy Assessment Goals Four Impairment LEFS impairment score of 11/80 Intermediate Goal (LTG) Pt will have LEFS score of at least 40 LTG Duration 4 wks Three Impairment Decreased ambulation tolerance Intermediate Goal (LTG) Pt will ambulate more than 300 ft with FWW LTG Duration 4 wks Two Impairment Impaired static/dynamic balance Churn Drill Operator Goal (LTG) Pt will increase static and dynamic balance to prevent falls and improve functional transfers and mobility LTG Duration 4 wks One Impairment Decreased both LE's strength Intermediate Goal (LTG) Patient will increase both LE' s strength by 1/2- 1 grade to enhance static and dynamic balance control, enhance distance mobility. LTG Duration 4 wks Progress Towards Goals Progress Towards Goals Progressing Toward Goals Assessment Summary Assessment Able to amabulate with forearm crutches without LOB; patient very pleased. Physical Therapy Plan Frequency and Duration Frequency of Treatment 2x/Week Plan of Care Start Date 05/02/18 Plan of Care End Date 07/11/18 Next Visit Focus/Plan Next Note Type Treatment Note Next Visit Plan Continue progression of ther ex, gait training.
--- NOTE | 2018-09-20 08:13 | PT.OPDS ---
Current Diagnoses Bilateral primary osteoarthritis of hip (05/24/18) Unilateral primary osteoarthritis, right knee (05/24/18) Other specified postprocedural states (05/24/18) Provider Visit Care Team Role Provider Type Sanya Guerrero MD Primary Care Provider Physician Specialty: Family Practice Address: [address] [place] [address], [address] Email: [email or web address] Shailesh Tobin MD Attending Provider Physician Specialty: Orthopedic Surgery Address: [address] [place] [address], [address] Email: [email or web address] Visit Number Visit Number 5 Discharge Summary PT-OP-B Current Condition Start: 05/02/18 17:07 Freq: Status: Active Protocol: Document 05/02/18 17:13 EA (Rec: 05/02/18 17:27 EA [id number]) Current Condition History of Current Condition Onset Date 10 years ago Current Complaints gait difficulty due weakness on both LE's. History of Current Condition 09/2016-S/P thoracic surgery T9-T11 secondary to nerve compression which resulted to lower abdominal and LE weakness. Pt reports symptoms improved right after the surgery; states had pool therapy at [facility] and was discharged on January 2017 with LE's strength and sensory deficits. Patient had 2008 lumbar surgery due to LE weakness and was revised on 2017 due to increased in LE's symptoms. Prior Treatments and Tests 2007 - first lumbar surgery 2009- Lumbar surgery revisions 2016- Thoracic surgery (T9-T11 ) [id number] multiple cortison shots to low back Future Testing and Treatments Planned None at this time. Treatment Goals Patient/Caregiver Goals 1. Strengthen both LE so he could drive his car again 2. Be able to walk more than 500 ft with walker 3. be able to walk > 50 ft with STC Prior Functional Status Baseline Function- ADL's Independent Baseline Function- Mobility Independent Baseline Function- Other Patient was able to use ST cane and able to ambulate more than 100 ft prior to September 2016 surgery. Current Functional Impairments (Reported) Functional Limitations- ADL's Unable to drive a car Functional Limitations- Mobility/Gait Indep with walking aid with limited distance ambulation Functional Limitations- Work/School Disabled Personal Factors Other Personal Factors That May Effect Chronicity of the condition; Therapy/Recovery previous formal PT with limited results. Depression, occasional A-fib, Right knee OA, Excess body weight. PT-OP-C Subjective Start: 05/02/18 17:07 Freq: Status: Active Protocol: Document 09/20/18 08:08 EA (Rec: 09/20/18 08:12 EA [id number]) OP-PT Subjective Patient Comments Patient Comments Pt was not seen since the last visit on 05/24/2018. Patient cancelled all remaining appointments after last visit without reason. PT-OP-D Balance Start: 05/02/18 17:07 Freq: Status: Active Protocol: Document 05/02/18 17:10 EA (Rec: 05/07/18 07:29 EA [id number]) OP-PT Balance Assessment Sitting Balance Static Sitting Balance Ability Good Dynamic Sitting Balance Ability Good Standing Balance Static Standing Balance Ability Good Dynamic Standing Balance Ability Fair Device Used 4 WW Standing Balance Comments Poor dynamic balance with no device to use. Lisseth Fall Scale Copyright Permission Lisseth MARS, Lisseth RM, Nakita SJ. Development of a scale to identify the fall- prone patient. Can J Aging 1989;8;366-7. Coreen Montanez (2009). Preventing patient falls. (2nd ed). [place]: [place]. PT-OP-E Functional Tests Start: 05/02/18 17:07 Freq: Status: Active Protocol: Document 05/02/18 17:10 EA (Rec: 05/07/18 07:29 EA [id number]) Functional Tests Dynamic Gait Index (DGI) Score 13 DGI Impairment Rating 40 to <60% Impaired (Score 10- 14) Five Times Sit to Stand Test Score 3 reps in 10 seconds with hand support PT-OP-G Mobility & Gait Start: 05/02/18 17:07 Freq: Status: Active Protocol: Document 05/02/18 17:15 EA (Rec: 05/07/18 08:19 EA [id number]) OP Mobility Evaluation Functional Movements Squats Moderate difficulty PT-OP-H Neuro Start: 05/02/18 17:07 Freq: Status: Active Protocol: Document 05/02/18 17:10 EA (Rec: 05/07/18 07:29 EA [id number]) Sensation Evaluation Gross Sensation Gross Sensation Left LE Impaired Right LE Impaired Sensation Description Numbness Dermatome Impairments L2 L3 L4 L5 S1 S2 Deep Tendon Reflex & Clonus Assessment Deep Tendon Reflex Achilles Deep Tendon Reflex 1+ Diminished Patellar Deep Tendon Reflex 1+ Diminished Ankle Clonus Bilateral Clonus Assessment Absent PT-OP-J Posture/Palpation/Skin Start: 05/02/18 17:07 Freq: Status: Active Protocol: Document 05/02/18 17:10 EA (Rec: 05/07/18 07:29 EA [id number]) Posture Evaluation Position Standing Evaluation View Lateral Head/C-Spine Posture Forward Head T-Spine Posture Increased Kyphosis PT-OP-M Strength Start: 05/02/18 17:07 Freq: Status: Active Protocol: Document 05/02/18 17:10 EA (Rec: 05/07/18 07:29 EA [id number]) Trunk Strength Trunk Manual Muscle Testing Flexion 4- Good- Extension 4- Good- Rotation Left 4- Good- Rotation Right 4- Good- Lateral Flexion Left 4- Good- Lateral Flexion Right 4- Good- Hip Strength Hip Manual Muscle Testing Right Flexion (L2) 4- Good- Extension (S1) 3+ Fair+ Abduction 3 Fair Adduction 3 Fair External Rotation 3 Fair Internal Rotation 3 Fair Left Flexion (L2) 4- Good- Extension (S1) 3+ Fair+ Abduction 3 Fair Adduction 3 Fair External Rotation 3 Fair Internal Rotation 3 Fair Knee Strength Knee Manual Muscle Testing Right Flexion (S2) 4- Good- Extension (L3) 4- Good- Left Flexion (S2) 2+ Poor+ Extension (L3) 4- Good- Ankle/Foot Strength Ankle and Foot Manual Muscle Testing Right Dorsiflexion (L4) 2- Poor- Plantarflexion (S1) 3- Fair- Inversion 3- Fair- Eversion (S1) 3- Fair- Left Dorsiflexion (L4) 3 Fair Plantarflexion (S1) 3+ Fair+ Inversion 3 Fair Eversion (S1) 3 Fair PT-OP-T Assessment and Plan Start: 05/02/18 17:07 Freq: Status: Active Protocol: Document 09/20/18 08:08 EA (Rec: 09/20/18 08:12 EA [id number]) Physical Therapy Assessment Assessment Summary Assessment Patient is discharge due to no longer attending appointments . Physical Therapy Plan Discharge Physical Therapy Discharge Reasons No Longer Attending PT
== END 2018-05-25 11:13 ==
LOC: PHYS 08:15
PROVIDERS: PCP Family Medicine; Visit Provider Orthopaedic Surgery Orthopaedic Surgery of the Spine
DX: Z98.890 Other specified postprocedural states (principal); M17.11 Unilateral primary osteoarthritis, right knee; M16.0 Bilateral primary osteoarthritis of hip
CPT/HCPCS: 97110; 97116; 97163

== ENCOUNTER 2021-02-05 03:46 | Emergency (ER) | payer OTHER, SELFPAY ==
[2021-02-05 04:00] VITALS: BP 164/89; PULSE 85; RESP 20; TEMP 36.2; O2SAT 10; BMI 34.9
[2021-02-05 04:04] VITALS: PULSE 80; O2SAT 100
--- NOTE | 2021-02-05 04:04 | ED_ITS ---
HPI - General Adult General Chief complaint: Abdominal Pain Stated complaint: Stomach pain, not eating choking on food Time Seen by Provider: 02/05/21 04:03 History of Present Illness HPI narrative: 65-year-old gentleman of complex medical history presents with complaints of increasing lower abdominal pain worse for the last 3-4 weeks with decreased oral intake secondary to pain, gagging when he is eating any food and notes a 75 lb weight loss in the last 8 months. It was not until the last 3-4 weeks that he was noticing the pain. Does not describe fevers, palpitations or chest pain. He has not had any near syncopal episodes. 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 yesterday for ?psychiatric evaluation? and was discharged home Hyperlipidemia History of lymphoma and has reportedly been clear since 2000 History of peripheral neuritis with bilateral AFOs to lower Extremities due to this 4 prior back surgeries with chronic back pain on gabapentin History of bladder polyps. Was seen by Urology 2 days ago with a cystoscopy performed, had been on antibiotics for UTI but was deemed to have polyps rather the area tract infection and antibiotics were stopped Lifelong history of slow bowels with bowel movements every 2-3 days and moderate constipation Hypothyroidism Recurrent shingles on valacyclovir Related Data Home Medications Medication Instructions Recorded Confirmed aspirin 325 mg PO QDAY #0 tab 06/06/16 atorvastatin 40 mg PO HS #0 tab 06/06/16 bisacodyl [Correctol] 5 mg PO #0 06/06/16 cholecalciferol (vitamin D3) 1,000 unit PO QDAY #0 tab 06/06/16 [Vitamin D3] levothyroxine [Levoxyl] 150 mcg PO QAM #0 tab 06/06/16 misoprostol 200 mcg PO #0 06/06/16 sotalol [Betapace] 120 BID #0 06/06/16 topiramate BID #0 06/06/16 valacyclovir 500 mg PO QDAY #0 tab 06/06/16 zolpidem [Ambien] 10 mg PO HSP PRN #0 tab 09/12/16 cyclobenzaprine 10 mg PO TIDP PRN #0 02/21/17 [CANNABIS OIL] PRN #0 06/06/17 Previous Rx's Medication Instructions Recorded Disabled Parking Permit ea #1 06/06/17 Walker: Heavy Duty Front Wheeled #1 08/02/17 aspirin 1 tab PO QDAY #100 tab 09/01/17 valacyclovir 1 tab PO QDAY #90 tab 09/01/17 zolpidem 1 tab PO PRN PRN #15 tab 09/01/17 alfuzosin 1 tab PO QDAY #90 tab 12/22/17 allopurinol 300 mg PO QDAY #90 tab 12/22/17 cyclobenzaprine 1 tab PO PRN PRN #90 tab 12/22/17 topiramate 1 tab PO BID #180 tab 12/22/17 bupropion HCl 100 mg tablet,12 hr 100 mg PO BID #180 tab 02/05/18 sustained-release Allergies Allergy/AdvReac Type Severity Reaction Status Date / Time acetaminophen [From PERCOCET] Allergy Unknown Unverified 01/03/18 12:36 oxycodone [From PERCOCET] Allergy Unknown Unverified 01/03/18 12:36 Review of Systems Review of Systems Narrative: Remainder of complete review of systems is otherwise unremarkable except for that included in the HPI. Patient History Medical History Acquired hypothyroidism (06/06/16) Depression Essential hypertension (06/06/16) History of lymphoma (06/06/16) Migraine without status migrainosus, not intractable (06/06/16) Paroxysmal atrial fibrillation (06/06/16) Pure hypercholesterolemia (06/06/16) Shingles Weakness of both lower extremities (08/02/17) Social History Smoking Status: Former smoker Exam Narrative Exam Narrative: General: Chronically ill-appearing, in no acute distress. Able to give a complete and coherent history. Appears to have lost significant weight with significant muscular atrophy HEENT: Moist mucous membranes, normal sclera with reactive pupils, Neck: No JVD, supple Respiratory: Lungs are clear to auscultation, no wheezing no rales no rhonchi. Full and symmetrical air movement Chest: Pacemaker left anterior chest wall Cardiac: Regular rate and rhythm no murmurs no bruits Abdomen: Soft, diffusely tender without rebound or guarding good bowel tones, no flank pain Skin: Warm and dry, no rashes Neurologic: Grossly neurologically intact with no obvious asymmetries or abnormalities, bilateral AFO in place Extremities: No trauma, well perfused Psych: Cooperative, anxious but overall appropriate insight and affect Initial Vital Signs Initial Vital Signs: Vital Signs Temperature 97.2 F L 02/05/21 04:00 Pulse Rate 85 02/05/21 04:00 Respiratory Rate 20 02/05/21 04:00 Blood Pressure 164/89 H 02/05/21 04:00 Pulse Oximetry 10 L 02/05/21 04:00 Course Orders Ordered: ED Orders 02/05/21 04:34 CT abdomen pelvis w con Stat 02/05/21 04:35 Complete Blood Count AUTO DIFF Stat Comprehensive Metabolic Panel Stat Lipase Stat Magnesium Stat Vital Signs Vital signs: Vital Signs - 8 hr 02/05/21 04:00 02/05/21 04:04 02/05/21 04:30 Temperature 97.2 F L Pulse Rate 85 80 79 Respiratory Rate 20 Blood Pressure 164/89 H Pulse Oximetry 10 L 100 100 02/05/21 05:00 02/05/21 05:30 02/05/21 06:00 Temperature Pulse Rate 79 81 83 Respiratory Rate Blood Pressure 159/80 H Pulse Oximetry 100 99 100 Medical Decision Making Medical Records Medical records reviewed: Yes I reviewed the patient's medical records. Lab Data Lab results reviewed: Yes I reviewed the patient's lab results. Result diagrams: 02/05/21 04:35 02/05/21 04:35 Labs: Lab Results 02/05/21 02/05/21 Range/Units 04:35 04:35 WBC 8.3 (4.5-11.0) X10^3/uL RBC 4.54 (4.5-5.9) X10^6/uL Hgb 14.4 (13.5-17.5) g/dL Hct 43.1 (41-53) % MCV 95.0 (80-100) fL MCH 31.6 (26-34) PG MCHC 33.3 (30-36) % RDW 18.6 H (11.6-14.8) % Plt Count 255 (150-400) X10^3/uL Neut % (Auto) 60.8 (50-75) % Lymph % (Auto) 32.2 (25-40) % [place] % (Auto) 5.3 (3-14) % Eos % (Auto) 1.2 L (2-4) % Baso % (Auto) 0.5 (0-2) % Neut # (Auto) 5100 (1188-8810) /uL Lymph # (Auto) 2700 (9906-3034) /uL [place] # (Auto) 400 (0-900) /uL Eos # (Auto) 100 (0-450) /uL Baso # (Auto) 0 (0-100) /uL Sodium 137 (137-145) mmol/L Potassium 3.4 (3.4-5.1) mmol/L Chloride 102 (98-107) mmol/L Carbon Dioxide 20 L (22-32) mmol/L BUN 19 (9-20) mg/dL Creatinine 1.27 H (0.66-1.25) mg/dL Estimated GFR 57.3 L (>60) mL/min BUN/Creatinine Ratio 15.0 (6-22) Glucose 100 (80-110) mg/dL Calcium 9.2 (8.4-10.2) mg/dL Magnesium 1.4 L (1.6-2.3) mg/dL Total Bilirubin 0.3 (0.2-1.3) mg/dL AST 21 (17-59) IU/L ALT 11 (<50) IU/L Alkaline Phosphatase 147 H (38-126) U/L Total Protein 6.9 (6.3-8.2) g/dL Albumin 3.8 (3.5-5.0) g/dL Globulin 3.1 (1.7-4.1) g/dL Albumin/Globulin Ratio 1.2 (1.0-2.8) Lipase 91 (23-300) U/L Imaging Data CT scan - abdomen/pelvis: Radiologist's Impression: Bilateral pulmonary nodules recommend CT chest for further evaluation Low-attenuation structure in the right hepatic lobe possibly cyst or hemangioma recommend further evaluation with contrast-enhanced abdominal MR Bladder wall thickening with air in the nondependent portion of the bladder and bladder diverticulum Left inguinal hernia containing fat and fluid Dr Audelia Lynn [facility] Narrative Medical decision making narrative: 65-year-old gentleman with complex medical history care seems to be through the [place], [facility], and [facility] with no immediate records available. Given his history of weight loss, increasing abdominal pain prior lymphoma general ill appearance and reports of no abdominal imaging studies done will go ahead and move forward with blood work and CT scan of the abdomen His labs do suggest minor dehydration but no significant infection. CT scan is unremarkable for abdominal findings. He does have multiple bilateral pulmonary nodules and CT scan is recommended. This would not be an explanation for the abdominal pain of which she is complaining. Specifically there is no significant constipation, bowel obstruction, abscess or intra-abdominal masses. Low-attenuation structure within the liver also recommended additional advanced imaging would not be an explanation for the pain he has experienced. At this time, I do not have a full explanation for the abdominal pain nor the weight loss. Pulmonary nodules will need further follow-up. He is not showing significant signs of malnutrition on his blood work. There certainly may be a psychiatric component to his abdominal pain and he does need to continue with follow-up for the bladder polyps and bladder diverticulum as previously scheduled. He is safe for home discharge. Will give him a copy of his CT scan report to share with his primary care physician. Discharge Plan Departure Patient Disposition: Home Clinical Impression: Abnormal weight loss, Pulmonary nodule seen on imaging study Abdominal pain Qualifiers: Abdominal location: lower abdomen, unspecified Qualified Code(s): R10.30 - Lower abdominal pain, unspecified Instructions: DI for Abdominal Pain-Adult Activity Restrictions/Additional Instructions: Thank you for coming in today Your blood work was very reassuring. There is no evidence of acute infection. Your CT scan of your abdomen and pelvis was reassuring. There is no obvious masses or tumors. There are no obstructing lesions,there is no bowel obstruction. Incidentally noted on the CT scan are bilateral pulmonary nodules. At some point in the future as an outpatient your primary care doctor will want to follow-up on these pulmonary nodules and a CT scan of the chest is recommended. Stress and concern over your bladder in the issues that are currently being evaluated can certainly cause stomach problems and may be contributing to your overall symptoms. I have given you a copy of the CT scan report to share with your [facility] doctors. Please follow-up with your primary care provider in the near future Prescriptions: No Action atorvastatin 40 MG tablet 40 mg PO HS Qty: 0 RF: 0 aspirin 325 MG tablet,delayed release (DR/EC) 325 mg PO QDAY Qty: 0 RF: 0 bisacodyl [Correctol] 5 MG tablet 5 mg PO Qty: 0 RF: 0 levothyroxine [Levoxyl] 150 MCG tablet 150 mcg PO QAM Qty: 0 RF: 0 misoprostol 200 MCG tablet 200 mcg PO Qty: 0 RF: 0 sotalol [Betapace] 240 MG tablet 120 BID Qty: 0 RF: 0 valacyclovir 500 MG tablet 500 mg PO QDAY Qty: 0 RF: 0 topiramate 50 MG tablet BID Qty: 0 RF: 0 cholecalciferol (vitamin D3) [Vitamin D3] 1,000 UNIT tablet 1,000 unit PO QDAY Qty: 0 RF: 0 zolpidem [Ambien] 10 MG tablet 10 mg PO HSP PRNQty: 0 RF: 0 cyclobenzaprine 10 MG tablet 10 mg PO TIDP PRNQty: 0 RF: 0 [CANNABIS OIL] PRNQty: 0 RF: 0 Disabled Parking Permit Qty: 1 RF: 0 Walker: Heavy Duty Front Wheeled Qty: 1 RF: 0 aspirin 325 MG tablet 1 tab PO QDAY Qty: 100 RF: 0 valacyclovir 500 MG tablet 1 tab PO QDAY Qty: 90 RF: 0 zolpidem 10 MG tablet 1 tab PO PRN PRNQty: 15 RF: 0 allopurinol 300 MG tablet 300 mg PO QDAY Qty: 90 RF: 3 topiramate 50 MG tablet 1 tab PO BID Qty: 180 RF: 3 cyclobenzaprine 10 MG tablet 1 tab PO PRN PRNQty: 90 RF: 3 alfuzosin 10 MG tablet extended release 24 hr 1 tab PO QDAY Qty: 90 RF: 3 bupropion HCl [Wellbutrin SR] 100 mg tablet extended release 12 hr 100 mg PO BID Qty: 180 RF: 3 Referrals: Sanya Guerrero MD [Primary Care Provider] -
[2021-02-05 04:30] VITALS: PULSE 79; O2SAT 100
--- NOTE | 2021-02-05 04:34 | DI.CT.S_ITS ---
PROCEDURE: CT ABDOMEN PELVIS W CON INDICATIONS: Abdominal pain, 75 lb weight loss in 8 months TECHNIQUE: After the administration of intravenous contrast, 5 mm thick sections acquired from the diaphragm to the symphysis. 5 mm coronal and sagittal reformats were acquired. For radiation dose reduction, the following was used: automated exposure control, adjustment of mA and/or kV according to patient size. COMPARISON: [facility], CT, NECK/CHEST/ABD/PEL W CONTRAST, 08/15/2017, 11:56. FINDINGS: Image quality: Excellent. ABDOMEN: Lung bases: Lung bases are clear. Heart size is normal. Solid organs: Liver is normal in size and enhancement. Gallbladder is not seen Biliary system is non dilated. Pancreas enhances normally. Spleen is normal in size and enhancement. No adrenal nodules. Kidneys demonstrate normal size and enhancement, without hydronephrosis. Peritoneum and bowel: Bowel loops demonstrate normal wall thickness and caliber. No free fluid or air. Nodes and vessels: No retroperitoneal or mesenteric adenopathy by size criteria. Aorta and inferior vena cava are normal in size. Miscellaneous: No ventral hernias. PELVIS: Genitourinary: Bladder wall thickness is abnormal, asymmetrically thickened on the right up to 1.4 cm versus normal thickness on the left at 3 mm. The thickening appears fusiform rather than polypoid. A plaque-like urothelial neoplasm could produce this appearance. . Miscellaneous: No inguinal hernias or adenopathy. Bones: No suspicious bony lesions. No vertebral body compression fractures. IMPRESSION: Gallbladder is not seen. There are extensive spine fusion devices that produce metal artifact that only mildly compromises quality of visualization along the spine. No adenopathy is seen, no definite visceral lesion is found. Note is made of asymmetric thickening of the bladder wall, measuring up to 1.4 cm on the right, and only 3 mm on the left at the same axial level. This may represent evidence of a plaque like urothelial carcinoma in that area. Urology consultation likely is warranted. Dictated by: Tutu Grayson M.D. on 02/05/2021 at 8:52 Approved by: Tutu Grayson M.D. on 02/05/2021 at 9:01
[2021-02-05 04:45] LABS: Add Manual Diff / Slide Review NO; Basophils Absolute Auto 0 /uL (0-100); Basophils Percent Auto 0.5 % (0-2); Eosinophils Absolute Auto 100 /uL (0-450); Eosinophils Percent Auto 1.2 % (2-4); Hematocrit 43.1 % (41-53); Hemoglobin 14.4 g/dL (13.5-17.5); Lymphocytes Absolute Auto 2700 /uL (1100-4500); Lymphocytes Percent Auto 32.2 % (25-40); Mean Corpuscular HGB Conc 33.3 % (30-36); Mean Corpuscular Hemoglobin 31.6 PG (26-34); Monocytes Absolute Auto 400 /uL (0-900); Monocytes Percent Auto 5.3 % (3-14); Neutrophils Absolute Auto 5100 /uL (1500-7000); Neutrophils Percent Auto 60.8 % (50-75); Platelet Count 255 X10^3/uL (150-400); Red Blood Cell Count 4.54 X10^6/uL (4.5-5.9); Red Cell Distribution Width 18.6 % (11.6-14.8); White Blood Cell Count 8.3 X10^3/uL (4.5-11.0)
[2021-02-05 04:56] LABS: Alanine Aminotransferase 11 IU/L (<50); Albumin 3.8 g/dL (3.5-5.0); Albumin Globulin Ratio 1.2 (1.0-2.8); Alkaline Phosphatase 147 U/L (38-126); Aspartate Aminotransferase 21 IU/L (17-59); Bilirubin Total 0.3 mg/dL (0.2-1.3); Blood Urea Nitrogen 19 mg/dL (9-20); Calcium 9.2 mg/dL (8.4-10.2); Carbon Dioxide 20 mmol/L (22-32); Chloride 102 mmol/L (98-107); Estimated Glomerular Filt Rate 57.3 mL/min (>60); Globulin 3.1 g/dL (1.7-4.1); Glucose 100 mg/dL (80-110); HEMOLYSIS 18 (0-50); Lipase 91 U/L (23-300); Magnesium 1.4 mg/dL (1.6-2.3); Potassium 3.4 mmol/L (3.4-5.1); Sodium 137 mmol/L (137-145); Total Protein 6.9 g/dL (6.3-8.2)
[2021-02-05 05:00] VITALS: PULSE 79; O2SAT 100
[2021-02-05 05:30] VITALS: BP 159/80; PULSE 81; O2SAT 99
[2021-02-05 06:00] VITALS: PULSE 83; O2SAT 100
== END 2021-02-05 06:05 | disposition home or self-care (01) ==
PROVIDERS: Emergency Provider Emergency Medicine; PCP Family Medicine
DX: R10.30 Lower abdominal pain, unspecified (principal); R63.4 Abnormal weight loss; R91.1 Solitary pulmonary nodule; R00.1 Bradycardia, unspecified; Z95.0 Presence of cardiac pacemaker
CPT/HCPCS: 36415; 74177; 80053; 83690; 83735; 85025; 99284; Q9967

== ENCOUNTER 2021-03-13 06:11 | Inpatient (IN) | payer OTHER, SELFPAY ==
[2021-03-13] VITALS (16 sets, daily range): BP systolic 124–188; BP diastolic 64–102; PULSE 72–88; RESP 14–21; TEMP 36.2–36.9; O2SAT 97–99; BMI 33.9; BMI 33.2
--- NOTE | 2021-03-13 06:10 | DI.RAD.S_ITS ---
PROCEDURE: XR CHEST 1V INDICATIONS: sepsis TECHNIQUE: One view of the chest was acquired. COMPARISON: None. FINDINGS: Surgical changes and devices: Left chest wall pacemaker leads are seen in the region of right atrium and right ventricle. Spinal fusion hardware is seen in lower thoracic and lumbar spine with evidence of prior vertebral plasties involving lower thoracic spine vertebral bodies. Lungs and pleura: Lungs are clear. No pleural effusions or pneumothorax. Mediastinum: Mediastinal contours appear normal. Heart size is normal. Bones and chest wall: No suspicious bony lesions. Overlying soft tissues appear unremarkable. IMPRESSION: No acute cardiopulmonary pathology. Dictated by: Christian Carolina M.D. on 03/13/2021 at 7:19 Approved by: Christian Carolina M.D. on 03/13/2021 at 7:20
--- NOTE | 2021-03-13 06:14 | ED_ITS ---
HPI - Male Genitourinary <Scott Bhatt DO - Last Filed: 03/16/21 01:27> General Chief complaint: Urogenital-Male Stated complaint: Urethral bleeding after 02/24 procedure Time Seen by Provider: 03/13/21 06:14 Source: patient and EMS Mode of arrival: EMS Limitations: no limitations History of Present Illness HPI Narrative: 65-year-old male nonsmoker with history of lymphoma, hypertension, depression, shingles, hypothyroidism presents by EMS for evaluation of painless hematuria with the passage of small clots, weakness, fatigue, poor oral intake over the past few days. In On February 24 he had a procedure done by Urology at the OR to check the bladder for cancer . He had been told to expect some bleeding for a few days which he did and then his urine cleared for few days until the past few days when symptoms returned again. He had a horton from 02/24 to 03/01. He denies any fever or shaking chills. He denies any chest pain or shortness of breath. MD Complaint: other Onset (ago): hour(s) Duration: constant Severity: moderate Quality: aching Relieving factors: none Exacerbating factors: none Context: recent surgery Related Data Home Medications Medication Instructions Recorded Confirmed Correctol 5 mg PO DAILY #0 06/06/16 03/13/21 aspirin 325 mg PO QDAY #0 tab 06/06/16 03/13/21 atorvastatin 40 mg PO HS #0 tab 06/06/16 03/13/21 cholecalciferol (vitamin D3) 1,000 unit PO QDAY #0 tab 06/06/16 03/13/21 [Vitamin D3] levothyroxine [Levoxyl] 150 mcg PO QAM #0 tab 06/06/16 03/13/21 misoprostol 200 mcg PO DAILY #0 06/06/16 03/13/21 sotalol [Betapace] 120 mg PO BID #0 06/06/16 03/13/21 valacyclovir 500 mg PO QDAY #0 tab 06/06/16 03/13/21 zolpidem [Ambien] 10 mg PO HSP PRN #0 tab 06/06/16 03/13/21 cyclobenzaprine 10 mg PO TIDP PRN #0 02/21/17 03/13/21 Previous Rx's Medication Instructions Recorded alfuzosin 1 tab PO QDAY #90 tab 12/22/17 allopurinol 300 mg PO QDAY #90 tab 12/22/17 topiramate 1 tab PO BID #180 tab 12/22/17 bupropion HCl 100 mg tablet,12 hr 100 mg PO BID #180 tab 02/05/18 sustained-release Allergies Allergy/AdvReac Type Severity Reaction Status Date / Time oxycodone [From PERCOCET] Allergy Unknown Verified 03/13/21 06:52 Review of Systems <Scott Bhatt DO - Last Filed: 03/16/21 01:27> Constitutional Constitutional: Denies chills, Denies fatigue, Denies fever(s), Denies frequent falls, Denies lethargy and Reports weakness Eyes Eyes: Denies change in vision, Denies eye discharge, Denies irritation and De nies loss of vision ENT Ears, Nose, Mouth, and Throat: Denies change in voice, Denies dizziness, Denies neck pain, Denies sore throat and Denies throat swelling Cardiovascular Cardiovascular: Denies chest pain, Denies irregular heart rhythm, Denies lightheadedness, Denies palpitations, Denies dyspnea, Denies dyspnea on exertion and Denies orthopnea Respiratory Respiratory: Denies cough, Denies dyspnea, Denies dyspnea on exertion and Denies wheezing Gastrointestinal Gastrointestinal: Denies abdominal pain, Denies change in bowel habits, Denies diarrhea, Denies nausea and Denies vomiting Genitourinary Genitourinary: Reports hematuria Genitourinary: Reports hematuria Musculoskeletal Musculoskeletal: Denies neck pain and Denies numbness Integumentary/Breasts Skin/Breast: Denies pruritus, Denies erythema, Denies rash and Denies wounds Neurologic Neurologic: Denies behavioral changes, Denies confusion, Denies dizziness, Denies frequent falls, Denies loss of vision, Denies numbness and Reports weakne ss Psychiatric Psychiatric: Denies anxiety, Denies behavioral changes, Denies confusion, Denies depression, Denies homicidal ideation and Denies suicidal ideation Endocrine Endocrine: Denies fatigue, Denies flushing and Denies palpitations Hematologic/Lymphatic Hematologic/Lymphatic: Denies easy bruising Allergic/Immunologic Allergic/Immunologic: Denies urticaria, Denies throat swelling and Denies wheezing Patient History <DO Mary Rizo Last Filed: 03/16/21 01:27> Medical History Acquired hypothyroidism (06/06/16) Depression Essential hypertension (06/06/16) Hematuria History of lymphoma (06/06/16) Migraine without status migrainosus, not intractable (06/06/16) Paroxysmal atrial fibrillation (06/06/16) Pure hypercholesterolemia (06/06/16) Shingles Weakness of both lower extremities (08/02/17) Surgical History History of cholecystectomy History of inguinal hernia repair History of lumbar fusion Family History Mother Pancreatic cancer Father Stroke Social History household members: spouse Smoking Status: Never smoker Smoking Status: Former smoker Substance Use Type: does not use Exam <Scott Bhatt DO - Last Filed: 03/16/21 01:27> Narrative Exam Narrative: GENERAL: [65] year old patient appears stated age. Well- developed patient, in mild distress. BMI 34 HEAD: Atraumatic. Normocephalic. EYES: Pupils equal round and reactive. Extraocular motions intact. No scleral icterus. No injection or drainage. ENT: Nose without bleeding, purulent drainage. Throat without erythema, tonsillar hypertrophy or exudate. Airway patent. NECK: Trachea midline. Non tender CARDIOVASCULAR: Regular rate and rhythm without murmurs, gallops, or rubs. RESPIRATORY: Clear to auscultation. Breath sounds equal bilaterally. No wheezes, rales, or rhonchi. GASTROINTESTINAL: Abdomen soft, minimal suprapubic tenderness, nondistended. EXTREMITIES: No edema or joint tenderness. BACK: Nontender without deformity or crepitance. No flank tenderness. NEURO: AOx3. SKIN: No rash or erythema of visible areas Initial Vital Signs Initial Vital Signs: Vital Signs Pulse Rate 80 03/13/21 06:13 Pulse Oximetry 98 03/13/21 06:13 <Tova Bowers MD - Last Filed: 03/13/21 09:59> Initial Vital Signs Initial Vital Signs: Vital Signs Pulse Rate 80 03/13/21 06:13 Pulse Oximetry 98 03/13/21 06:13 Course <Scott Bhatt - Last Filed: 03/16/21 01:27> Course Course Narrative: Bladder scan showed minimal urine within the bladder. Patient is able to stand upright and produce urine which is gross hematuria. At this point a 3 way Horton catheter is placed with plants to flush at least 2 L or until cleared Orders Ordered: Acetaminophen (Acetaminophen 325 Mg Tablet) 650 mg PO Q4H PRN PRN Reason: Pain, Mild (1-3) Lactated Ringer's (Lactated Ringers) 1,000 mls @ 125 mls/hr IV CONT [facility] Last Admin: 03/15/21 20:58 Dose: 125 mls/hr Documented by: IGOR Naloxone HCl (Naloxone 0.4 Mg/Ml Vial) 0.2 mg IV Q2MIN PRN PRN Reason: Opiate Reversal Sotalol HCl (Sotalol 80 Mg Tablet) 120 mg PO BID [facility] Last Admin: 03/15/21 21:02 Dose: 120 mg Documented by: IGOR Discontinued Medications Acetaminophen (Acetaminophen 325 Mg Tablet) 975 mg PO NOW ONE Stop: 03/13/21 07:34 Last Admin: 03/13/21 07:48 Dose: 975 mg Documented by: MARIO Acetaminophen (Acetaminophen 325 Mg Tablet) 650 mg PO Q4HR PRN PRN Reason: Fever/Mild Pain (1-3) Last Admin: 03/15/21 05:03 Dose: 650 mg Documented by: Admin: 03/15/21 00:22 Dose: 650 mg Documented by: Admin: 03/14/21 14:43 Dose: 650 mg Documented by: Admin: 03/14/21 09:16 Dose: 650 mg Documented by: SHAHID Acetaminophen (Acetaminophen 325 Mg Tablet) 650 mg PO PACUNOW PRN PRN Reason: Pain, Mild (1-3) Allopurinol (Allopurinol 300 Mg Tablet) 300 mg PO DAILY [facility] Last Admin: 03/15/21 10:16 Dose: Not Given Documented by: Admin: 03/14/21 09:18 Dose: 300 mg Documented by: Admin: 03/13/21 10:33 Dose: 300 mg Documented by: KARTHIKEYAN Atorvastatin Calcium (Atorvastatin 20 Mg Tablet) 40 mg PO BEDTIME [facility] Last Admin: 03/14/21 21:36 Dose: 40 mg Documented by: Admin: 03/13/21 21:36 Dose: 40 mg Documented by: YO Belladonna Alkaloids/Opium (Belladonna/Opium Suppositories) 1 each VT NOW ONE Stop: 03/15/21 18:29 Last Admin: 03/15/21 18:29 Dose: 1 each Documented by: LEANNA Bupropion HCl (Bupropion Sr 100 Mg Tab) 100 mg PO BID [facility] Last Admin: 03/15/21 10:16 Dose: Not Given Documented by: Admin: 03/14/21 21:36 Dose: 100 mg Documented by: Admin: 03/14/21 09:18 Dose: 100 mg Documented by: Admin: 03/13/21 21:37 Dose: 100 mg Documented by: Admin: 03/13/21 10:33 Dose: 100 mg Documented by: KARTHIKEYAN Cyclobenzaprine HCl (Cyclobenzaprine 10 Mg Tablet) 10 mg PO TID PRN PRN Reason: Pain, Moderate (4-6) Hydromorphone HCl (Hydromorphone 2 Mg Inj) 0 mg IV Q5MIN PRN PRN Reason: Pain, Mild (1-3) Last Admin: 03/15/21 19:38 Dose: 0.25 mg Documented by: Admin: 03/15/21 19:28 Dose: 0.25 mg Documented by: RISA Lactated Ringer's (Lactated Ringers) 1,000 mls @ 1,000 mls/hr IV BOLUS ONE Stop: 03/13/21 07:48 Last Admin: 03/15/21 18:37 Dose: 42 mls/hr Documented by: Infusion: 03/15/21 18:37 Dose: 42 mls/hr Documented by: Admin: 03/15/21 16:59 Dose: 42 mls/hr Documented by: Infusion: 03/13/21 07:48 Dose: 0 mls/hr Documented by: Admin: 03/13/21 06:52 Dose: 1,000 mls/hr Documented by: BARON Sodium Chloride (Normal Saline 0.9%) 1,000 mls @ 70 mls/hr IV CONT [facility] Last Infusion: 03/15/21 20:26 Dose: 42 mls/hr Documented by: Admin: 03/15/21 07:30 Dose: 70 mls/hr Documented by: Infusion: 03/15/21 06:41 Dose: 70 mls/hr Documented by: Admin: 03/14/21 16:23 Dose: 70 mls/hr Documented by: Infusion: 03/14/21 16:23 Dose: 70 mls/hr Documented by: Admin: 03/14/21 02:43 Dose: 70 mls/hr Documented by: Infusion: 03/14/21 02:43 Dose: 70 mls/hr Documented by: Infusion: 03/13/21 18:13 Dose: 70 mls/hr Documented by: Infusion: 03/13/21 16:01 Dose: 0 mls/hr Documented by: Admin: 03/13/21 10:39 Dose: 70 mls/hr Documented by: KARTHIKEYAN Gentamicin Sulfate 160 mg/ (Sodium Chloride) 104 mls @ 104 mls/hr IV NOW ONE Stop: 03/15/21 10:45 Last Infusion: 03/15/21 17:48 Dose: 0 mls/hr Documented by: Admin: 03/15/21 16:57 Dose: 104 mls/hr Documented by: PARVEZ Lactated Ringer's (Lactated Ringers) 500 mls @ 25 mls/hr IV CONT [facility] Last Admin: 03/15/21 21:04 Dose: Not Given Documented by: IGOR Ampicillin Sodium/Sulbactam (Sodium 3 gm/ Sodium Chloride) 100 mls @ 100 mls/hr IV NOW ONE Stop: 03/15/21 10:45 Last Infusion: 03/15/21 17:58 Dose: 0 mls/hr Documented by: Admin: 03/15/21 17:48 Dose: 100 mls/hr Documented by: WILLY Levofloxacin (Levofloxacin 250 Mg Tablet) 750 mg PO NOW ONE Stop: 03/13/21 08:28 Last Admin: 03/13/21 08:52 Dose: 750 mg Documented by: MARIO Levothyroxine Sodium (Levothyroxine 150 Mcg Tablet) 150 mcg PO 0600 [facility] Last Admin: 03/15/21 05:03 Dose: 150 mcg Documented by: Admin: 03/14/21 05:33 Dose: 150 mcg Documented by: YMAILETH Naloxone HCl (Naloxone 0.4 Mg/Ml Vial) 0.2 mg IV Q2MIN PRN PRN Reason: Opiate Reversal Nf - Alfuzosin 10 Mg (Er Tablet) 1 tab PO DAILY [facility] Last Admin: 03/15/21 08:32 Dose: Not Given Documented by: Admin: 03/14/21 09:15 Dose: Not Given Documented by: Admin: 03/13/21 10:36 Dose: Not Given Documented by: KARTHIKEYAN Ondansetron HCl (Ondansetron 4 Mg/2 Ml Inj) 4 mg IV Q4HR PRN PRN Reason: Nausea And Vomiting Last Admin: 03/15/21 06:46 Dose: 4 mg Documented by: Admin: 03/14/21 23:28 Dose: 4 mg Documented by: YO Ondansetron HCl (Ondansetron 4 Mg/2 Ml Inj) 4 mg IV NOW PRN PRN Reason: Nausea And Vomiting Oxycodone HCl (Oxycodone Ir 5 Mg Tablet) 5 mg PO PACUNOW PRN PRN Reason: Mild or moderate pain Phenazopyridine HCl (Phenazopyridine 100 Mg Tablet) 200 mg PO NOW ONE Stop: 03/13/21 08:20 Last Admin: 03/13/21 08:52 Dose: 200 mg Documented by: MARIO Sotalol HCl (Sotalol 80 Mg Tablet) 120 mg PO BID [facility] Last Admin: 03/15/21 10:18 Dose: 120 mg Documented by: Admin: 03/14/21 21:36 Dose: 120 mg Documented by: Admin: 03/14/21 09:19 Dose: 120 mg Documented by: Admin: 03/13/21 21:36 Dose: 120 mg Documented by: Admin: 03/13/21 10:33 Dose: 120 mg Documented by: KARTHIKEYAN Topiramate (Topiramate 25 Mg Tablet) 50 mg PO BID [facility] Last Admin: 03/15/21 10:17 Dose: Not Given Documented by: Admin: 03/14/21 21:36 Dose: 50 mg Documented by: Admin: 03/14/21 09:18 Dose: 50 mg Documented by: Admin: 03/13/21 21:36 Dose: 50 mg Documented by: Admin: 03/13/21 10:33 Dose: 50 mg Documented by: KARTHIKEYAN Tramadol HCl (Tramadol 50 Mg Tablet) 50 mg PO QID PRN PRN Reason: Pain, Moderate (4-6) Last Admin: 03/13/21 23:22 Dose: 50 mg Documented by: Admin: 03/13/21 15:56 Dose: 50 mg Documented by: YO Valacyclovir HCl (Valacyclovir 500 Mg Tablet) 500 mg PO DAILY [facility] Last Admin: 03/15/21 10:17 Dose: Not Given Documented by: Admin: 03/14/21 09:18 Dose: 500 mg Documented by: Admin: 03/13/21 10:33 Dose: 500 mg Documented by: KARTHIKEYAN Vitamin D (Cholecalciferol (Vitamin D3) 1,000 Unit Tablet) 1,000 unit PO DAILY [facility] Last Admin: 03/15/21 10:16 Dose: Not Given Documented by: Admin: 03/14/21 09:19 Dose: 1,000 unit Documented by: Admin: 03/13/21 10:39 Dose: 1,000 unit Documented by: KARTHIKEYAN Zolpidem Tartrate (Zolpidem 5 Mg Tablet) 10 mg PO BEDTIME PRN PRN Reason: Sleep Vital Signs Vital signs: Vital Signs - 8 hr 03/13/21 06:13 03/13/21 06:15 03/13/21 06:19 Temperature 98.4 F Pulse Rate 80 80 80 Respiratory Rate 16 14 Blood Pressure 127/64 132/88 Pulse Oximetry 98 97 98 03/13/21 06:36 03/13/21 06:49 03/13/21 07:00 Temperature Pulse Rate 88 86 82 Respiratory Rate 21 20 21 Blood Pressure 170/102 H 182/94 H Pulse Oximetry 98 99 03/13/21 07:30 03/13/21 08:00 03/13/21 08:30 Temperature Pulse Rate 81 78 72 Respiratory Rate 19 Blood Pressure 140/80 188/93 H 142/75 H Pulse Oximetry 98 99 99 <Tova Bowers MD - Last Filed: 03/13/21 09:59> Orders Ordered: Acetaminophen (Acetaminophen 325 Mg Tablet) 650 mg PO Q4H PRN PRN Reason: Pain, Mild (1-3) Lactated Ringer's (Lactated Ringers) 1,000 mls @ 125 mls/hr IV CONT [facility] Last Admin: 03/15/21 20:58 Dose: 125 mls/hr Documented by: IGOR Naloxone HCl (Naloxone 0.4 Mg/Ml Vial) 0.2 mg IV Q2MIN PRN PRN Reason: Opiate Reversal Sotalol HCl (Sotalol 80 Mg Tablet) 120 mg PO BID [facility] Last Admin: 03/15/21 21:02 Dose: 120 mg Documented by: IGOR Discontinued Medications Acetaminophen (Acetaminophen 325 Mg Tablet) 975 mg PO NOW ONE Stop: 03/13/21 07:34 Last Admin: 03/13/21 07:48 Dose: 975 mg Documented by: MARIO Acetaminophen (Acetaminophen 325 Mg Tablet) 650 mg PO Q4HR PRN PRN Reason: Fever/Mild Pain (1-3) Last Admin: 03/15/21 05:03 Dose: 650 mg Documented by: Admin: 03/15/21 00:22 Dose: 650 mg Documented by: Admin: 03/14/21 14:43 Dose: 650 mg Documented by: Admin: 03/14/21 09:16 Dose: 650 mg Documented by: SHAHID Acetaminophen (Acetaminophen 325 Mg Tablet) 650 mg PO PACUNOW PRN PRN Reason: Pain, Mild (1-3) Allopurinol (Allopurinol 300 Mg Tablet) 300 mg PO DAILY [facility] Last Admin: 03/15/21 10:16 Dose: Not Given Documented by: Admin: 03/14/21 09:18 Dose: 300 mg Documented by: Admin: 03/13/21 10:33 Dose: 300 mg Documented by: KARTHIKEYAN Atorvastatin Calcium (Atorvastatin 20 Mg Tablet) 40 mg PO BEDTIME [facility] Last Admin: 03/14/21 21:36 Dose: 40 mg Documented by: Admin: 03/13/21 21:36 Dose: 40 mg Documented by: YO Belladonna Alkaloids/Opium (Belladonna/Opium Suppositories) 1 each VT NOW ONE Stop: 03/15/21 18:29 Last Admin: 03/15/21 18:29 Dose: 1 each Documented by: LEANNA Bupropion HCl (Bupropion Sr 100 Mg Tab) 100 mg PO BID [facility] Last Admin: 03/15/21 10:16 Dose: Not Given Documented by: Admin: 03/14/21 21:36 Dose: 100 mg Documented by: Admin: 03/14/21 09:18 Dose: 100 mg Documented by: Admin: 03/13/21 21:37 Dose: 100 mg Documented by: Admin: 03/13/21 10:33 Dose: 100 mg Documented by: KARTHIKEYAN Cyclobenzaprine HCl (Cyclobenzaprine 10 Mg Tablet) 10 mg PO TID PRN PRN Reason: Pain, Moderate (4-6) Hydromorphone HCl (Hydromorphone 2 Mg Inj) 0 mg IV Q5MIN PRN PRN Reason: Pain, Mild (1-3) Last Admin: 03/15/21 19:38 Dose: 0.25 mg Documented by: Admin: 03/15/21 19:28 Dose: 0.25 mg Documented by: RISA Lactated Ringer's (Lactated Ringers) 1,000 mls @ 1,000 mls/hr IV BOLUS ONE Stop: 03/13/21 07:48 Last Admin: 03/15/21 18:37 Dose: 42 mls/hr Documented by: Infusion: 03/15/21 18:37 Dose: 42 mls/hr Documented by: Admin: 03/15/21 16:59 Dose: 42 mls/hr Documented by: Infusion: 03/13/21 07:48 Dose: 0 mls/hr Documented by: Admin: 03/13/21 06:52 Dose: 1,000 mls/hr Documented by: BARON Sodium Chloride (Normal Saline 0.9%) 1,000 mls @ 70 mls/hr IV CONT [facility] Last Infusion: 03/15/21 20:26 Dose: 42 mls/hr Documented by: Admin: 03/15/21 07:30 Dose: 70 mls/hr Documented by: Infusion: 03/15/21 06:41 Dose: 70 mls/hr Documented by: Admin: 03/14/21 16:23 Dose: 70 mls/hr Documented by: Infusion: 03/14/21 16:23 Dose: 70 mls/hr Documented by: Admin: 03/14/21 02:43 Dose: 70 mls/hr Documented by: Infusion: 03/14/21 02:43 Dose: 70 mls/hr Documented by: Infusion: 03/13/21 18:13 Dose: 70 mls/hr Documented by: Infusion: 03/13/21 16:01 Dose: 0 mls/hr Documented by: Admin: 03/13/21 10:39 Dose: 70 mls/hr Documented by: KARTHIKEYAN Gentamicin Sulfate 160 mg/ (Sodium Chloride) 104 mls @ 104 mls/hr IV NOW ONE Stop: 03/15/21 10:45 Last Infusion: 03/15/21 17:48 Dose: 0 mls/hr Documented by: Admin: 03/15/21 16:57 Dose: 104 mls/hr Documented by: PARVEZ Lactated Ringer's (Lactated Ringers) 500 mls @ 25 mls/hr IV CONT [facility] Last Admin: 03/15/21 21:04 Dose: Not Given Documented by: IGOR Ampicillin Sodium/Sulbactam (Sodium 3 gm/ Sodium Chloride) 100 mls @ 100 mls/hr IV NOW ONE Stop: 03/15/21 10:45 Last Infusion: 03/15/21 17:58 Dose: 0 mls/hr Documented by: Admin: 03/15/21 17:48 Dose: 100 mls/hr Documented by: WILLY Levofloxacin (Levofloxacin 250 Mg Tablet) 750 mg PO NOW ONE Stop: 03/13/21 08:28 Last Admin: 03/13/21 08:52 Dose: 750 mg Documented by: MARIO Levothyroxine Sodium (Levothyroxine 150 Mcg Tablet) 150 mcg PO 0600 [facility] Last Admin: 03/15/21 05:03 Dose: 150 mcg Documented by: Admin: 03/14/21 05:33 Dose: 150 mcg Documented by: YAMILETH Naloxone HCl (Naloxone 0.4 Mg/Ml Vial) 0.2 mg IV Q2MIN PRN PRN Reason: Opiate Reversal Nf - Alfuzosin 10 Mg (Er Tablet) 1 tab PO DAILY [facility] Last Admin: 03/15/21 08:32 Dose: Not Given Documented by: Admin: 03/14/21 09:15 Dose: Not Given Documented by: Admin: 03/13/21 10:36 Dose: Not Given Documented by: KARTHIKEYAN Ondansetron HCl (Ondansetron 4 Mg/2 Ml Inj) 4 mg IV Q4HR PRN PRN Reason: Nausea And Vomiting Last Admin: 03/15/21 06:46 Dose: 4 mg Documented by: Admin: 03/14/21 23:28 Dose: 4 mg Documented by: YO Ondansetron HCl (Ondansetron 4 Mg/2 Ml Inj) 4 mg IV NOW PRN PRN Reason: Nausea And Vomiting Oxycodone HCl (Oxycodone Ir 5 Mg Tablet) 5 mg PO PACUNOW PRN PRN Reason: Mild or moderate pain Phenazopyridine HCl (Phenazopyridine 100 Mg Tablet) 200 mg PO NOW ONE Stop: 03/13/21 08:20 Last Admin: 03/13/21 08:52 Dose: 200 mg Documented by: MARIO Sotalol HCl (Sotalol 80 Mg Tablet) 120 mg PO BID [facility] Last Admin: 03/15/21 10:18 Dose: 120 mg Documented by: Admin: 03/14/21 21:36 Dose: 120 mg Documented by: Admin: 03/14/21 09:19 Dose: 120 mg Documented by: Admin: 03/13/21 21:36 Dose: 120 mg Documented by: Admin: 03/13/21 10:33 Dose: 120 mg Documented by: KARTHIKEYAN Topiramate (Topiramate 25 Mg Tablet) 50 mg PO BID [facility] Last Admin: 03/15/21 10:17 Dose: Not Given Documented by: Admin: 03/14/21 21:36 Dose: 50 mg Documented by: Admin: 03/14/21 09:18 Dose: 50 mg Documented by: Admin: 03/13/21 21:36 Dose: 50 mg Documented by: Admin: 03/13/21 10:33 Dose: 50 mg Documented by: KARTHIKEYAN Tramadol HCl (Tramadol 50 Mg Tablet) 50 mg PO QID PRN PRN Reason: Pain, Moderate (4-6) Last Admin: 03/13/21 23:22 Dose: 50 mg Documented by: Admin: 03/13/21 15:56 Dose: 50 mg Documented by: YO Valacyclovir HCl (Valacyclovir 500 Mg Tablet) 500 mg PO DAILY [facility] Last Admin: 03/15/21 10:17 Dose: Not Given Documented by: Admin: 03/14/21 09:18 Dose: 500 mg Documented by: Admin: 03/13/21 10:33 Dose: 500 mg Documented by: KARTHIKEYAN Vitamin D (Cholecalciferol (Vitamin D3) 1,000 Unit Tablet) 1,000 unit PO DAILY [facility] Last Admin: 03/15/21 10:16 Dose: Not Given Documented by: Admin: 03/14/21 09:19 Dose: 1,000 unit Documented by: Admin: 03/13/21 10:39 Dose: 1,000 unit Documented by: KARTHIKEYAN Zolpidem Tartrate (Zolpidem 5 Mg Tablet) 10 mg PO BEDTIME PRN PRN Reason: Sleep Vital Signs Vital signs: Vital Signs - 8 hr 03/13/21 06:13 03/13/21 06:15 03/13/21 06:19 Temperature 98.4 F Pulse Rate 80 80 80 Respiratory Rate 16 14 Blood Pressure 127/64 132/88 Pulse Oximetry 98 97 98 03/13/21 06:36 03/13/21 06:49 03/13/21 07:00 Temperature Pulse Rate 88 86 82 Respiratory Rate 21 20 21 Blood Pressure 170/102 H 182/94 H Pulse Oximetry 98 99 03/13/21 07:30 03/13/21 08:00 03/13/21 08:30 Temperature Pulse Rate 81 78 72 Respiratory Rate 19 Blood Pressure 140/80 188/93 H 142/75 H Pulse Oximetry 98 99 99 MDM - Male Genitourinary <Scott Bhatt DO - Last Filed: 03/16/21 01:27> Lab Data Result diagrams: 03/15/21 04:25 03/15/21 04:25 Labs: Lab Results 03/13/21 03/13/21 03/13/21 Range/Units 06:12 06:12 06:12 WBC 13.3 H (4.5-11.0) X10^3/uL RBC 4.11 L (4.5-5.9) X10^6/uL Hgb 13.2 L (13.5-17.5) g/dL Hct 40.6 L (41-53) % MCV 98.8 (80-100) fL MCH 32.0 (26-34) PG MCHC 32.4 (30-36) % RDW 16.8 H (11.6-14.8) % Plt Count 368 (150-400) X10^3/uL Neut % (Auto) 69.2 (50-75) % Lymph % (Auto) 23.0 L (25-40) % Spencer % (Auto) 7.1 (3-14) % Eos % (Auto) 0.3 L (2-4) % Baso % (Auto) 0.4 (0-2) % Neut # (Auto) 9200 H (1484-4235) /uL Lymph # (Auto) 3100 (3360-8357) /uL Spencer # (Auto) 900 (0-900) /uL Eos # (Auto) 0 (0-450) /uL Baso # (Auto) 100 (0-100) /uL Sodium 133 L (137-145) mmol/L Potassium 3.5 (3.4-5.1) mmol/L Chloride 106 (98-107) mmol/L Carbon Dioxide 20 L (22-32) mmol/L BUN 26 H (9-20) mg/dL Creatinine 1.34 H (0.66-1.25) mg/dL Estimated GFR 53.8 L (>60) mL/min BUN/Creatinine Ratio 19.4 (6-22) Glucose 107 (80-110) mg/dL Lactate 2.0 (0.7-2.1) mmol/L Calcium 9.5 (8.4-10.2) mg/dL Total Bilirubin 0.3 (0.2-1.3) mg/dL AST 22 (17-59) IU/L ALT 13 (<50) IU/L Alkaline Phosphatase 108 (38-126) U/L Total Creatine Kinase 38 L (55-170) U/L CK-MB (CK-2) TNP CK-MB (CK-2) Rel Index TNP Troponin I 0.045 H (0.01-0.034) ng/mL Total Protein 6.0 L (6.3-8.2) g/dL Albumin 3.1 L (3.5-5.0) g/dL Globulin 2.9 (1.7-4.1) g/dL Albumin/Globulin Ratio 1.1 (1.0-2.8) Procalcitonin 0.10 (<0.5) ng/mL SARS-CoV-2 (PCR) (Negative) 03/13/21 03/13/21 Range/Units 08:30 08:39 WBC (4.5-11.0) X10^3/uL RBC (4.5-5.9) X10^6/uL Hgb (13.5-17.5) g/dL Hct (41-53) % MCV (80-100) fL MCH (26-34) PG MCHC (30-36) % RDW (11.6-14.8) % Plt Count (150-400) X10^3/uL Neut % (Auto) (50-75) % Lymph % (Auto) (25-40) % Spencer % (Auto) (3-14) % Eos % (Auto) (2-4) % Baso % (Auto) (0-2) % Neut # (Auto) (9478-4631) /uL Lymph # (Auto) (0848-5567) /uL Spencer # (Auto) (0-900) /uL Eos # (Auto) (0-450) /uL Baso # (Auto) (0-100) /uL Sodium (137-145) mmol/L Potassium (3.4-5.1) mmol/L Chloride (98-107) mmol/L Carbon Dioxide (22-32) mmol/L BUN (9-20) mg/dL Creatinine (0.66-1.25) mg/dL Estimated GFR (>60) mL/min BUN/Creatinine Ratio (6-22) Glucose (80-110) mg/dL Lactate (0.7-2.1) mmol/L Calcium (8.4-10.2) mg/dL Total Bilirubin (0.2-1.3) mg/dL AST (17-59) IU/L ALT (<50) IU/L Alkaline Phosphatase (38-126) U/L Total Creatine Kinase (55-170) U/L CK-MB (CK-2) CK-MB (CK-2) Rel Index Troponin I 0.038 H (0.01-0.034) ng/mL Total Protein (6.3-8.2) g/dL Albumin (3.5-5.0) g/dL Globulin (1.7-4.1) g/dL Albumin/Globulin Ratio (1.0-2.8) Procalcitonin (<0.5) ng/mL SARS-CoV-2 (PCR) Negative (Negative) Imaging Data Chest x-ray: Radiologist's Impression: bibasilar reticular nodular interstitial opacities which may represent infectious or inflammatory etiology <Tova Bowers MD - Last Filed: 03/13/21 09:59> Medical Records Attestation: I reviewed the patient's medical records. Lab Data Attestation: I reviewed the patient's lab results. Labs: Lab Results 03/13/21 03/13/21 03/13/21 Range/Units 06:12 06:12 06:12 WBC 13.3 H (4.5-11.0) X10^3/uL RBC 4.11 L (4.5-5.9) X10^6/uL Hgb 13.2 L (13.5-17.5) g/dL Hct 40.6 L (41-53) % MCV 98.8 (80-100) fL MCH 32.0 (26-34) PG MCHC 32.4 (30-36) % RDW 16.8 H (11.6-14.8) % Plt Count 368 (150-400) X10^3/uL Neut % (Auto) 69.2 (50-75) % Lymph % (Auto) 23.0 L (25-40) % Spencer % (Auto) 7.1 (3-14) % Eos % (Auto) 0.3 L (2-4) % Baso % (Auto) 0.4 (0-2) % Neut # (Auto) 9200 H (9046-6903) /uL Lymph # (Auto) 3100 (4909-3522) /uL Spencer # (Auto) 900 (0-900) /uL Eos # (Auto) 0 (0-450) /uL Baso # (Auto) 100 (0-100) /uL Sodium 133 L (137-145) mmol/L Potassium 3.5 (3.4-5.1) mmol/L Chloride 106 (98-107) mmol/L Carbon Dioxide 20 L (22-32) mmol/L BUN 26 H (9-20) mg/dL Creatinine 1.34 H (0.66-1.25) mg/dL Estimated GFR 53.8 L (>60) mL/min BUN/Creatinine Ratio 19.4 (6-22) Glucose 107 (80-110) mg/dL Lactate 2.0 (0.7-2.1) mmol/L Calcium 9.5 (8.4-10.2) mg/dL Total Bilirubin 0.3 (0.2-1.3) mg/dL AST 22 (17-59) IU/L ALT 13 (<50) IU/L Alkaline Phosphatase 108 (38-126) U/L Total Creatine Kinase 38 L (55-170) U/L CK-MB (CK-2) TNP CK-MB (CK-2) Rel Index TNP Troponin I 0.045 H (0.01-0.034) ng/mL Total Protein 6.0 L (6.3-8.2) g/dL Albumin 3.1 L (3.5-5.0) g/dL Globulin 2.9 (1.7-4.1) g/dL Albumin/Globulin Ratio 1.1 (1.0-2.8) Procalcitonin 0.10 (<0.5) ng/mL SARS-CoV-2 (PCR) (Negative) 03/13/21 03/13/21 Range/Units 08:30 08:39 WBC (4.5-11.0) X10^3/uL RBC (4.5-5.9) X10^6/uL Hgb (13.5-17.5) g/dL Hct (41-53) % MCV (80-100) fL MCH (26-34) PG MCHC (30-36) % RDW (11.6-14.8) % Plt Count (150-400) X10^3/uL Neut % (Auto) (50-75) % Lymph % (Auto) (25-40) % Spencer % (Auto) (3-14) % Eos % (Auto) (2-4) % Baso % (Auto) (0-2) % Neut # (Auto) (8452-3733) /uL Lymph # (Auto) (0383-7070) /uL Spencer # (Auto) (0-900) /uL Eos # (Auto) (0-450) /uL Baso # (Auto) (0-100) /uL Sodium (137-145) mmol/L Potassium (3.4-5.1) mmol/L Chloride (98-107) mmol/L Carbon Dioxide (22-32) mmol/L BUN (9-20) mg/dL Creatinine (0.66-1.25) mg/dL Estimated GFR (>60) mL/min BUN/Creatinine Ratio (6-22) Glucose (80-110) mg/dL Lactate (0.7-2.1) mmol/L Calcium (8.4-10.2) mg/dL Total Bilirubin (0.2-1.3) mg/dL AST (17-59) IU/L ALT (<50) IU/L Alkaline Phosphatase (38-126) U/L Total Creatine Kinase (55-170) U/L CK-MB (CK-2) CK-MB (CK-2) Rel Index Troponin I 0.038 H (0.01-0.034) ng/mL Total Protein (6.3-8.2) g/dL Albumin (3.5-5.0) g/dL Globulin (1.7-4.1) g/dL Albumin/Globulin Ratio (1.0-2.8) Procalcitonin (<0.5) ng/mL SARS-CoV-2 (PCR) Negative (Negative) ECG Data Attestation: I personally reviewed and interpreted this ECG as follows: Interpretation: Sinus rhythm at a rate of 69 Nonspecific interventricular conduction delay, leftward axis No acute ischemic changes MDM Narrative Medical decision making narrative: Care is assumed. 65-year-old gentleman with recent cystoscopy and some type of bladder growth removed with patient reports of negative pathology all happening in early February. He had some minor postoperative bleeding and a Horton catheter for a bit of time. All of that had cleared nicely and he was doing well until this morning when he began having bright red catch-up colored clots with some minor bladder spasm. He denies any fevers, infectious symptoms, no dyspnea orthopnea or chest pain. Initial workup shows mild renal insufficiency and a slightly elevated troponin at 0.045 with no prior comparisons both may be baseline. An EKG is currently pending and a troponin at 2:00 a.m. is also pending. A 3 way Horton catheter is placed with moderate initial irrigation and then continuous bladder infusion. A number of clots were initially returned and the bladder infusion currently has moderately red urine returning but no obvious clots appreciated. Care was reviewed with Dr. Canchola, attending urologist on- call for the OR in [place]. His recommendation was to admit for at least 24 hours with continuous bladder irrigation. Once it is completely clear your med commended clamping the Horton for a couple of hours and repeating irrigation to make sure it stays completely clear. If it is clear at that point removing the Horton and doing a voiding trial. If all remains clear he is able to void he can go home without a Horton catheter. If additional urology consultation is needed over the weekend, please call the [facility] on-call urologist this attending physician is covering all services and Residents at all of the [facility] in [facility]. Findings are reviewed with patient who is amenable to treatment. Does have a slightly elevated white blood cell count and with the manipulation, catheterization will go ahead and give him a single dose of oral Levaquin in the emergency department as prophylactic treatment. He is not currently on any blood thinners. EKG is unremarkable. Troponin is trending down and like UE related to his noted mild biatrial enlargement rather than any acute coronary syndrome. Care is reviewed with Dr. Reyna, admitting hospitalist, who accepts admission. Discharge Plan Departure Patient Disposition: Admitted as Observation Clinical Impression: Hematuria Qualifiers: Hematuria type: gross Qualified Code(s): R31.0 - Gross hematuria Admit Date/Time: 03/13/21 09:11 Admit Provider: Ronni Reyna
[2021-03-13 06:21] LABS: Add Manual Diff / Slide Review NO; Basophils Absolute Auto 100 /uL (0-100); Basophils Percent Auto 0.4 % (0-2); Eosinophils Absolute Auto 0 /uL (0-450); Eosinophils Percent Auto 0.3 % (2-4); Hematocrit 40.6 % (41-53); Hemoglobin 13.2 g/dL (13.5-17.5); Lymphocytes Absolute Auto 3100 /uL (1100-4500); Mean Corpuscular HGB Conc 32.4 % (30-36); Mean Corpuscular Volume 98.8 fL (80-100); Monocytes Absolute Auto 900 /uL (0-900); Monocytes Percent Auto 7.1 % (3-14); Neutrophils Absolute Auto 9200 /uL (1500-7000); Neutrophils Percent Auto 69.2 % (50-75); Platelet Count 368 X10^3/uL (150-400); Red Blood Cell Count 4.11 X10^6/uL (4.5-5.9); Red Cell Distribution Width 16.8 % (11.6-14.8); White Blood Cell Count 13.3 X10^3/uL (4.5-11.0)
[2021-03-13 06:33] LABS: Alanine Aminotransferase 13 IU/L (<50); Albumin 3.1 g/dL (3.5-5.0); Albumin Globulin Ratio 1.1 (1.0-2.8); Alkaline Phosphatase 108 U/L (38-126); Aspartate Aminotransferase 22 IU/L (17-59); BUN Creatinine Ratio 19.4 (6-22); Bilirubin Total 0.3 mg/dL (0.2-1.3); Blood Urea Nitrogen 26 mg/dL (9-20); Calcium 9.5 mg/dL (8.4-10.2); Carbon Dioxide 20 mmol/L (22-32); Chloride 106 mmol/L (98-107); Creatine Kinase 38 U/L (55-170); Estimated Glomerular Filt Rate 53.8 mL/min (>60); Globulin 2.9 g/dL (1.7-4.1); Glucose 107 mg/dL (80-110); HEMOLYSIS < 15 (0-50); Potassium 3.5 mmol/L (3.4-5.1); Sodium 133 mmol/L (137-145)
[2021-03-13 06:45] LABS: Troponin I 0.045 ng/mL (0.01-0.034)
[2021-03-13] MEDS: LACTATED RINGERS 1,000 ML 1000 ML IV (06:52)
[2021-03-13] MEDS: ACETAMINOPHEN 325 MG TABLET 975 MG PO (07:48)
[2021-03-13] MEDS: levoFLOXacin 250 MG TABLET 750 MG PO (08:52)
[2021-03-13] MEDS: PHENAZOPYRIDINE 100 MG TABLET 200 MG PO (08:52)
--- NOTE | 2021-03-13 08:55 | P.HP_ITS ---
History of Present Illness History of Present Illness Date Patient Seen: 03/13/21 Time Patient Seen: 09:11 Chief complaint: Urethral bleeding after 02/24 procedure Narrative: This is a 65-year-old male, disabled with multiple prior back surgeries causing bilateral lower extremity weakness along with a history of lymphoma, with hypertension/atrial fibrillation/hypothyroidism and depression who now presents to the emergency department with onset this morning of gross hematuria. He had a cystoscopy with bladder biopsy done on 02/24 at the [facility] in [facility] for hematuria. His urination had been normal without bloody urine until now. With placement of a 3 way catheter and irrigation in the emergency department his bleeding is beginning to clear. He has a white blood count of 13.3 without any urinary tract infection symptoms. The [place] on-call urologist (Dr. Canchola) was contacted who described a continuous bladder irrigation plan as described below. He is on aspirin 81 mg a day but not on any other anticoagulation. There has been no fever, abdominal pain, chills, sweats or dysuria. The pathology report was not available to the urologist who was contacted. The patient reports that he was told that his pathology was ?benign. ? Patient History Medical History (Updated 03/13/21 @ 09:00 by Ronni Reyna MD) Acquired hypothyroidism (06/06/16) Depression Essential hypertension (06/06/16) Hematuria History of lymphoma (06/06/16) Migraine without status migrainosus, not intractable (06/06/16) Paroxysmal atrial fibrillation (06/06/16) Pure hypercholesterolemia (06/06/16) Shingles Weakness of both lower extremities (08/02/17) Surgical History (Updated 03/13/21 @ 08:57 by Ronni Reyna MD) History of cholecystectomy History of inguinal hernia repair History of lumbar fusion Family & Social History Family History (Updated 03/13/21 @ 08:58 by Ronni Reyna MD) Mother Pancreatic cancer Father Stroke Social History: His backup decision maker is his , Chelle Sena Safety & Behavioral: Feels Safe in Current Yes Environment Been Physically Hurt or No Threatened By a Person Tobacco & Substance use: Smoking Status Former smoker Substance Use Type does not use Alcohol Only at parties Meds Home Medications and Allergies Home Medications Medication Instructions Recorded Confirmed Type aspirin 325 mg PO QDAY #0 tab 06/06/16 History atorvastatin 40 mg PO HS #0 tab 06/06/16 History bisacodyl [Correctol] 5 mg PO #0 06/06/16 History cholecalciferol (vitamin D3) 1,000 unit PO QDAY #0 tab 06/06/16 History [Vitamin D3] levothyroxine [Levoxyl] 150 mcg PO QAM #0 tab 06/06/16 History misoprostol 200 mcg PO #0 06/06/16 History sotalol [Betapace] 120 BID #0 06/06/16 History topiramate BID #0 06/06/16 History valacyclovir 500 mg PO QDAY #0 tab 06/06/16 History zolpidem [Ambien] 10 mg PO HSP PRN #0 tab 06/06/16 History cyclobenzaprine 10 mg PO TIDP PRN #0 02/21/17 History Disabled Parking Permit ea #1 06/06/17 Rx [CANNABIS OIL] PRN #0 06/06/17 History Walker: Heavy Duty Front Wheeled #1 08/02/17 Rx aspirin 1 tab PO QDAY #100 tab 09/01/17 Rx valacyclovir 1 tab PO QDAY #90 tab 09/01/17 Rx zolpidem 1 tab PO PRN PRN #15 tab 09/01/17 Rx alfuzosin 1 tab PO QDAY #90 tab 12/22/17 Rx allopurinol 300 mg PO QDAY #90 tab 12/22/17 Rx cyclobenzaprine 1 tab PO PRN PRN #90 tab 12/22/17 Rx topiramate 1 tab PO BID #180 tab 12/22/17 Rx bupropion HCl 100 mg tablet,12 hr 100 mg PO BID #180 tab 02/05/18 Rx sustained-release Allergies Allergy/AdvReac Type Severity Reaction Status Date / Time acetaminophen [From PERCOCET] Allergy Unknown Verified 03/13/21 06:52 oxycodone [From PERCOCET] Allergy Unknown Verified 03/13/21 06:52 Review of Systems Review of Systems Narrative: Positive for hematuria and lower extremity weakness Negative for chest pain, shortness of breath, headaches, seizures, GI bleeding, abdominal pain, coughing, fevers, chills, sweats, trouble talking and new allergies. ROS: Yes All systems reviewed with the patient and are negative except as otherwise documented Exam Vital Signs (past 8 hours): - 03/13/21 06:13 03/13/21 06:15 03/13/21 06:19 Temperature 98.4 F Pulse Rate 80 80 80 Respiratory Rate 16 14 Blood Pressure 127/64 132/88 Pulse Oximetry 98 97 98 03/13/21 06:36 03/13/21 06:49 03/13/21 07:00 Temperature Pulse Rate 88 86 82 Respiratory Rate 21 20 21 Blood Pressure 170/102 H 182/94 H Pulse Oximetry 98 99 03/13/21 07:30 03/13/21 08:00 03/13/21 08:30 Temperature Pulse Rate 81 78 72 Respiratory Rate 19 Blood Pressure 140/80 188/93 H 142/75 H Pulse Oximetry 98 99 99 Oxygen Delivery Method Room Air Narrative Exam Narrative: He is alert and oriented x3. He is well spoken and in no apparent distress. He is from [place] and is a patri[employer] fan Pupils are equally round and reactive to light and accommodation. Extraocular muscles are intact. Sclerae are pink and nonicteric. Throat looks normal No lymph nodes are felt head, neck, supraclavicular area. There is no thyromegaly JVD is less than 6 cm and there are no carotid bruits heard. Heart is regular rate and rhythm without murmur Lungs are clear to auscultation bilaterally Abdomen is soft, bowel sounds positive, nontender, no organomegaly There is no ankle edema. His legs are very large but without signs of lymphedema. Skin has no rash or jaundice Neurological exam. Cranial nerves 2-12 test intact. There is no tremor Deep tendon reflexes are symmetric and not hyperactive Motor function is 5/5 in the upper extremities and 2/5 in both lower extremities. He uses AFO devices to treat his footdrop. Objective Labs Result Diagrams: 03/13/21 06:12 03/13/21 06:12 Labs: Laboratory Results - last 24 hr 03/13/21 03/13/21 03/13/21 06:12 06:12 06:12 WBC 13.3 H RBC 4.11 L Hgb 13.2 L Hct 40.6 L MCV 98.8 MCH 32.0 MCHC 32.4 RDW 16.8 H Plt Count 368 Neut % (Auto) 69.2 Lymph % (Auto) 23.0 L [place] % (Auto) 7.1 Eos % (Auto) 0.3 L Baso % (Auto) 0.4 Neut # (Auto) 9200 H Lymph # (Auto) 3100 [place] # (Auto) 900 Eos # (Auto) 0 Baso # (Auto) 100 Sodium 133 L Potassium 3.5 Chloride 106 Carbon Dioxide 20 L BUN 26 H Creatinine 1.34 H Estimated GFR 53.8 L BUN/Creatinine Ratio 19.4 Glucose 107 Lactate 2.0 Calcium 9.5 Total Bilirubin 0.3 AST 22 ALT 13 Alkaline Phosphatase 108 Total Creatine Kinase 38 L CK-MB (CK-2) TNP CK-MB (CK-2) Rel Index TNP Troponin I 0.045 H Total Protein 6.0 L Albumin 3.1 L Globulin 2.9 Albumin/Globulin Ratio 1.1 Procalcitonin 0.10 Assessment & Plan Assessment & Plan narrative: This is a 65-year-old male with gross hematuria after cystoscopy/bladder biopsies done at the [facility] last week. He now has gross hematuria and will be undergoing 3 way catheter irrigation at the direction of the [place] Urology physician. He is not on anticoagulation. He is thought to have a recent benign bladder biopsy result. Gross Hematuria, present on admission. Active. -?probably a clot that fell off after the biopsy? per [place] Urology phone consultation -the results of the biopsy were not available for the urologist to discuss. The patient reports that he was told that his biopsies were ?benign. ? -continue 3 way catheter with continuous bladder irrigation. -per discussion in the emergency department with the on-call [place] urologist(at ) will irrigate until clear, then stop irrigation for 2 hours, then give 1 more Liter and then at if able to void without catheter will discharge home. If not able to void will call the on-call [place] ( urology covering) urologist for further instructions. Hypertension, present on admission. Active. -continue sotalol Chronic kidney disease stage 3, present admission. Active. -repeat metabolic panel 03/14, continue IV hydration Hypothyroidism, present on admission. Chronic and stable. -continue levothyroxine Bilateral lower extremity weakness, present on admission. Chronic and stable. -this is chronic for many years after 4 spinal procedures. He is on 100% [employer] disability benefits. -continue bilateral AFO when standing/walking Depression, present admission. Chronic and stable. -continue bupropion
[2021-03-13 09:14] LABS: Troponin I 0.038 ng/mL (0.01-0.034)
[2021-03-13 09:40] LABS: COVID19 - ADMIT (NP swab/PCR) Negative (Negative)
--- NOTE | 2021-03-13 09:45 | PC.NURSE ---
pt continues with CBI. remains with hematuria.
[2021-03-13] MEDS: allopurinoL 300 MG TABLET PO (10:33)
[2021-03-13] MEDS: buPROPion SR 100 MG TAB PO ×2 (10:33→21:37)
[2021-03-13] MEDS: valACYclovir 500 MG TABLET PO (10:33)
[2021-03-13] MEDS: TOPIRAMATE 25 MG TABLET 50 MG PO ×2 (10:33→21:36)
[2021-03-13] MEDS: SOTALOL 80 MG TABLET 120 MG PO ×2 (10:33→21:36)
[2021-03-13] MEDS: SODIUM CHLORIDE 0.9% 1,000 ML 70 ML IV (10:39)
[2021-03-13] MEDS: CHOLECALCIFEROL (VITAMIN D3) 1,000 UNIT TABLET 1000 UNIT PO (10:39)
[2021-03-13 14:33] LABS: Hematocrit 39.9 % (41-53); Hemoglobin 13.1 g/dL (13.5-17.5); Mean Corpuscular HGB Conc 32.8 % (30-36); Mean Corpuscular Hemoglobin 31.8 PG (26-34); Platelet Count 319 X10^3/uL (150-400); Red Blood Cell Count 4.11 X10^6/uL (4.5-5.9); Red Cell Distribution Width 16.6 % (11.6-14.8); White Blood Cell Count 12.4 X10^3/uL (4.5-11.0)
--- NOTE | 2021-03-13 15:16 | PC.NURSE ---
pt admitted to room 228 floor care no tele and continuous bladder irrigation r/t passing of clots- irrigant has been running at a hasty clip to attempt to keep urine flowing- this RN has has to manually irrigate ( with some force) to manipulate clots and resume jproper flow to collection bag- has ranged from mary ellen hematuria to watermelon in appearance. many clots visualized- ns ivf running at 70/h and pt is weak at baseline- he declined to stand to pivot to the hospital bed- slight fhypertension noted and call placed to MD re: pain rx- report given to DREA Leonard
[2021-03-13] MEDS: TRAMADOL 50 MG TABLET PO ×2 (15:56→23:22)
[2021-03-13] MEDS: ATORVASTATIN 20 MG TABLET 40 MG PO (21:36)
[2021-03-14] MEDS: SODIUM CHLORIDE 0.9% 1,000 ML 70 ML IV ×2 (02:43→16:23)
[2021-03-14 03:27] VITALS: BP 131/77; PULSE 69; RESP 18; TEMP 36.5; O2SAT 98
[2021-03-14 05:31] LABS: Add Manual Diff / Slide Review NO; Basophils Absolute Auto 100 /uL (0-100); Basophils Percent Auto 0.4 % (0-2); Eosinophils Absolute Auto 0 /uL (0-450); Eosinophils Percent Auto 0.4 % (2-4); Hematocrit 38.1 % (41-53); Hemoglobin 12.6 g/dL (13.5-17.5); Lymphocytes Absolute Auto 2700 /uL (1100-4500); Lymphocytes Percent Auto 20.8 % (25-40); Mean Corpuscular Hemoglobin 32.4 PG (26-34); Monocytes Absolute Auto 900 /uL (0-900); Monocytes Percent Auto 6.9 % (3-14); Neutrophils Absolute Auto 9200 /uL (1500-7000); Neutrophils Percent Auto 71.5 % (50-75); Platelet Count 323 X10^3/uL (150-400); Red Blood Cell Count 3.89 X10^6/uL (4.5-5.9); Red Cell Distribution Width 16.5 % (11.6-14.8); White Blood Cell Count 12.8 X10^3/uL (4.5-11.0)
[2021-03-14 05:33] LABS: BUN Creatinine Ratio 23.4 (6-22); Blood Urea Nitrogen 25 mg/dL (9-20); Carbon Dioxide 25 mmol/L (22-32); Chloride 106 mmol/L (98-107); Estimated Glomerular Filt Rate > 60.0 mL/min (>60); Glucose 95 mg/dL (80-110); HEMOLYSIS < 15 (0-50); Potassium 4.3 mmol/L (3.4-5.1); Sodium 136 mmol/L (137-145)
[2021-03-14] MEDS: LEVOTHYROXINE 150 MCG TABLET PO (05:33)
--- NOTE | 2021-03-14 06:21 | PC.NURSE ---
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 Early in shift manual irrigation required 2-3 times to flush clots through and to relieved pain and pressure felt by patient, he expressed discomfort from intermittent spasms, took prn Tramadol once but is reluctant to take PO pain medications, also apprehensive to reposition and withdraws to any care around the catheter. By am urine is light pink, no clots, estimated 'true urine output' 1165ml, I/Os.
[2021-03-14 07:00] VITALS: BP 135/76; PULSE 70; RESP 16; TEMP 36.1; O2SAT 99
--- NOTE | 2021-03-14 07:13 | PM.PN.1 ---
Subjective Subjective Date Patient Seen: 03/14/21 Time Patient Seen: 08:14 Interval history: He is seen in his room here on 03/14/2021. He continues to have light pink urine from the bladder irrigation. He is requesting Tylenol and indicating that he is not allergic to Tylenol but is allergic to oxycodone by itself. The tramadol did not help his discomfort much. His troponin was 0.038 yesterday. The white blood count is 12.8 with a hemoglobin of 12.6. The metabolic panel is normal. Exam Vital Signs (past 8 hours): - 03/13/21 23:20 03/14/21 03:27 Temperature 97.1 F L 97.7 F Pulse Rate 77 69 Respiratory Rate 18 18 Blood Pressure 146/89 H 131/77 Pulse Oximetry 99 98 Oxygen Delivery Method Room Air Oxygen Flow Rate 0 Narrative Exam Narrative: He is alert and oriented x3. He is resigned to however long it takes for the hematuria to clear. No apparent distress Heart is regular rate and rhythm without murmur Lungs are clear to auscultation bilaterally Abdomen is soft, bowel sounds positive, nontender, obese, no organomegaly Extremities have no ankle edema Redmond catheter in place in the urethra with light pink urine. Objective Labs Result Diagrams: 03/14/21 04:50 03/14/21 04:50 Labs: Laboratory Results - last 24 hr 03/13/21 03/13/21 03/13/21 08:30 08:39 11:15 WBC RBC Hgb Hct MCV MCH MCHC RDW Plt Count Neut % (Auto) Lymph % (Auto) [place] % (Auto) Eos % (Auto) Baso % (Auto) Neut # (Auto) Lymph # (Auto) [place] # (Auto) Eos # (Auto) Baso # (Auto) Sodium Potassium Chloride Carbon Dioxide BUN Creatinine Estimated GFR BUN/Creatinine Ratio Glucose Calcium Troponin I 0.038 H Nasal Screen MRSA (PCR) Negative for mrsa SARS-CoV-2 (PCR) Negative 03/13/21 03/14/21 03/14/21 14:25 04:50 04:50 WBC 12.4 H 12.8 H RBC 4.11 L 3.89 L Hgb 13.1 L 12.6 L Hct 39.9 L 38.1 L MCV 97.0 98.0 MCH 31.8 32.4 MCHC 32.8 33.0 RDW 16.6 H 16.5 H Plt Count 319 323 Neut % (Auto) 71.5 Lymph % (Auto) 20.8 L [place] % (Auto) 6.9 Eos % (Auto) 0.4 L Baso % (Auto) 0.4 Neut # (Auto) 9200 H Lymph # (Auto) 2700 [place] # (Auto) 900 Eos # (Auto) 0 Baso # (Auto) 100 Sodium 136 L Potassium 4.3 Chloride 106 Carbon Dioxide 25 BUN 25 H Creatinine 1.07 Estimated GFR > 60.0 BUN/Creatinine Ratio 23.4 H Glucose 95 Calcium 10.0 Troponin I Nasal Screen MRSA (PCR) SARS-CoV-2 (PCR) [facility] Medical History (Updated 03/13/21 @ 10:05 by Tova Bowers MD) Acquired hypothyroidism (06/06/16) Depression Essential hypertension (06/06/16) Hematuria History of lymphoma (06/06/16) Migraine without status migrainosus, not intractable (06/06/16) Paroxysmal atrial fibrillation (06/06/16) Pure hypercholesterolemia (06/06/16) Shingles Weakness of both lower extremities (08/02/17) Surgical History (Updated 03/13/21 @ 08:57 by Ronni Reyna MD) History of cholecystectomy History of inguinal hernia repair History of lumbar fusion Family History (Updated 03/13/21 @ 08:58 by Ronni Reyna MD) Mother Pancreatic cancer Father Stroke Social History household members: spouse Smoking Status: Never smoker Assessment & Plan Assessment & Plan narrative: This is a 65-year-old male with gross hematuria after cystoscopy/bladder biopsies done at the [facility] last week. He now has gross hematuria and is undergoing 3 way catheter irrigation at the direction of the [place] [facility] physician. He is not on anticoagulation. He reports a benign bladder biopsy result. Gross Hematuria, present on admission. Active. -?probably a clot that fell off after the biopsy? per [place] [facility] phone consultation -the results of the biopsy were not available for the urologist to discuss. The patient reports that he was told that his biopsies were ?benign. ? -continue 3 way catheter with continuous bladder irrigation. -per discussion in the emergency department with the on-call [place] urologist(at ) will irrigate until clear, then stop irrigation for 2 hours, then give 1 more Liter of irrigation and then if able to void without catheter will discharge home. If not able to void will call the on-call [facility] ( [facility] covering) urologist for further instructions. Hypertension, present on admission. Active. -continue sotalol Chronic kidney disease stage 3, present admission. Active. -repeat metabolic panel 03/14 normal, continue IV hydration Hypothyroidism, present on admission. Chronic and stable. -continue levothyroxine Bilateral lower extremity weakness, present on admission. Chronic and stable. -this is chronic for many years after 4 spinal procedures. He is on 100% [place] disability benefits. -continue bilateral AFO when standing/walking Depression, present admission. Chronic and stable. -continue bupropion
[2021-03-14] MEDS: ACETAMINOPHEN 325 MG TABLET 650 MG PO ×2 (09:16→14:43)
[2021-03-14] MEDS: allopurinoL 300 MG TABLET PO (09:18)
[2021-03-14] MEDS: TOPIRAMATE 25 MG TABLET 50 MG PO ×2 (09:18→21:36)
[2021-03-14] MEDS: buPROPion SR 100 MG TAB PO ×2 (09:18→21:36)
[2021-03-14] MEDS: valACYclovir 500 MG TABLET PO (09:18)
[2021-03-14] MEDS: SOTALOL 80 MG TABLET 120 MG PO ×2 (09:19→21:36)
[2021-03-14] MEDS: CHOLECALCIFEROL (VITAMIN D3) 1,000 UNIT TABLET 1000 UNIT PO (09:19)
[2021-03-14 11:00] VITALS: BP 146/81; PULSE 69; RESP 17; TEMP 36.1; O2SAT 100
--- NOTE | 2021-03-14 11:14 | PC.NURSE ---
Continuous bladder irrigation in progress as ordered, adjusting on roller clamp to regulate flow to keep urine pink to clear. Patient tolerating well, although noted that catheter had been leaking around insertion site starting overnight at some point per patient. Frequent wilber care provided to keep skin clean and dry. Dr. eRyna notified of leaking around catheter, no new orders received, he states he does not want to have catheter replaced. Patient denies bladder pain, and able to palpate low abdomen without any pain or discomfort noted, horton draining without clots. Urine remains pink. Patient requested tylenol for mild discomfort, states he does not have an allergy to tylenol just the narcotic in percocet. Patient reports that he did not sleep well at all last night and would like to try and sleep today. Call light within reach.
--- NOTE | 2021-03-14 15:03 | CM.DANOTE ---
Patient is a 65 year old male who was admitted on 03/13/21 for Urethral Bleeding. Pt has [facility] for insurance and his PCP is at the [facility]. EMR was reviewed. Per , pt with hx of disability from multiple back surgeries, hx of AFIB and pt with recent cystoscopy with bladder biopsy at the [facility] in [place] on 02/24/21. MD consulted with [facility] urologist and recommendation for flushing as the bleeding may be a dislodged clot from the procedure and if bleeding does not stop then [facility] would likely want pt transferred to their [place] hospital. Pt 100% service connected with [facility]. Per RN, still some pink in pt's urine/flushing and unclear if pt will need to transfer yet or not. No other concerns at this time and pt independent in the room. SW attempted to meet bedside with pt but each time pt getting personal care/flushing from RN/INFORMATION TECHNOLOGY INTERN. Plan: SW to follow to determine if pt will be medically stable to d/c home with spouse and outpt Urology follow up vs [facility]'s [facility]. VIKTORIYA Claros
[2021-03-14 16:17] VITALS: BP 108/61; PULSE 63; RESP 16; TEMP 36.2; O2SAT 100
[2021-03-14 20:23] VITALS: BP 146/76; PULSE 61; RESP 16; TEMP 36.4; O2SAT 100
[2021-03-14] MEDS: ATORVASTATIN 20 MG TABLET 40 MG PO (21:36)
[2021-03-14 23:20] VITALS: BP 146/83; PULSE 72; RESP 18; TEMP 36.5; O2SAT 100
[2021-03-14] MEDS: ONDANSETRON 4 MG/2 ML INJ IV (23:28)
[2021-03-15] VITALS (18 sets, daily range): BP systolic 84–135; BP diastolic 46–79; PULSE 60–87; RESP 11–18; TEMP 35.6–36.2; O2SAT 97–100; BMI 33.2
[2021-03-15] MEDS: ACETAMINOPHEN 325 MG TABLET 650 MG PO ×2 (00:22→05:03)
[2021-03-15 04:35] LABS: Add Manual Diff / Slide Review NO; Basophils Absolute Auto 100 /uL (0-100); Basophils Percent Auto 0.7 % (0-2); Eosinophils Absolute Auto 200 /uL (0-450); Eosinophils Percent Auto 1.5 % (2-4); Hematocrit 35.5 % (41-53); Hemoglobin 11.9 g/dL (13.5-17.5); Lymphocytes Absolute Auto 2200 /uL (1100-4500); Mean Corpuscular HGB Conc 33.4 % (30-36); Mean Corpuscular Hemoglobin 32.7 PG (26-34); Mean Corpuscular Volume 97.9 fL (80-100); Monocytes Absolute Auto 600 /uL (0-900); Monocytes Percent Auto 5.9 % (3-14); Neutrophils Absolute Auto 7300 /uL (1500-7000); Neutrophils Percent Auto 70.9 % (50-75); Platelet Count 306 X10^3/uL (150-400); Red Blood Cell Count 3.63 X10^6/uL (4.5-5.9); Red Cell Distribution Width 16.9 % (11.6-14.8); White Blood Cell Count 10.3 X10^3/uL (4.5-11.0)
[2021-03-15 04:44] LABS: BUN Creatinine Ratio 20.2 (6-22); Blood Urea Nitrogen 20 mg/dL (9-20); Calcium 9.7 mg/dL (8.4-10.2); Carbon Dioxide 25 mmol/L (22-32); Chloride 107 mmol/L (98-107); Estimated Glomerular Filt Rate > 60.0 mL/min (>60); Glucose 89 mg/dL (80-110); HEMOLYSIS 16 (0-50); Sodium 137 mmol/L (137-145)
[2021-03-15] MEDS: LEVOTHYROXINE 150 MCG TABLET PO (05:03)
[2021-03-15] MEDS: ONDANSETRON 4 MG/2 ML INJ IV (06:46)
[2021-03-15] MEDS: SODIUM CHLORIDE 0.9% 1,000 ML 70 ML IV (07:30)
[2021-03-15] MEDS: SOTALOL 80 MG TABLET 120 MG PO ×2 (10:18→21:02)
--- NOTE | 2021-03-15 10:34 | PM.CN ---
History of Present Illness Consult details Date Patient Seen: 03/15/21 Time Patient Seen: 10:35 Chief complaint: Urethral bleeding after 6/2 procedure Reason for consult: Clot retention Requesting provider: Zabrina Emery Narrative: The patient is a 65-year-old white male who presented and was admitted on 03/13/2021 for management of gross hematuria and clot retention. He reports having had a history of recurrent UTI dating back to June of 2020. He gets much of his care through the [facility]. He does not know specifics of the culture results or the variety of antibiotics. He does mention that he was trialed on Alfuzosin but was discontinued due to side effect of low blood pressure. He then underwent cystoscopy and bladder biopsy at the [facility] on 02/24/2021. Patient reports that the specimens were interpreted as benign. The patient has a history of a pacemaker and was previously on ASA 325 mg daily. He was instructed to discontinue 7 days prior to the bladder biopsy. He had a Redmond catheter in from 02/24/2021 through 03/01/2021, and did not note any blood or clot per catheter. On or about 03/08/2021 he was instructed to resume ASA 325 mg daily. Within 2-3 days he developed hematuria. He was then instructed by his principal consultant to ?give his platelets are rest? and did not take any aspirin for 2 days. He was then instructed to resume ASA 81 mg q.day which he did up until about 4 - 5 days ago. He states that he had visible blood intermittently from near the time he resumed ASA 325 mg until admission. Since admission he has required high continuous bladder irrigation in flow rates as well as hand irrigation by nursing staff about every 2 hours to maintain patency of the catheter. Urology consultation is requested this day. The patient was given breakfast at 8:00 a.m. today. Meds Home Medications and Allergies Home Medications Medication Instructions Recorded Confirmed Type Correctol 5 mg PO DAILY #0 06/06/16 03/13/21 History aspirin 325 mg PO QDAY #0 tab 06/06/16 03/13/21 History atorvastatin 40 mg PO HS #0 tab 06/06/16 03/13/21 History cholecalciferol (vitamin D3) 1,000 unit PO QDAY #0 tab 06/06/16 03/13/21 History [Vitamin D3] levothyroxine [Levoxyl] 150 mcg PO QAM #0 tab 06/06/16 03/13/21 History misoprostol 200 mcg PO DAILY #0 06/06/16 03/13/21 History sotalol [Betapace] 120 mg PO BID #0 06/06/16 03/13/21 History valacyclovir 500 mg PO QDAY #0 tab 06/06/16 03/13/21 History zolpidem [Ambien] 10 mg PO HSP PRN #0 tab 06/06/16 03/13/21 History cyclobenzaprine 10 mg PO TIDP PRN #0 02/21/17 03/13/21 History alfuzosin 1 tab PO QDAY #90 tab 12/22/17 03/13/21 Rx allopurinol 300 mg PO QDAY #90 tab 12/22/17 03/13/21 Rx topiramate 1 tab PO BID #180 tab 12/22/17 03/13/21 Rx bupropion HCl 100 mg tablet,12 hr 100 mg PO BID #180 tab 02/05/18 03/13/21 Rx sustained-release Allergies Allergy/AdvReac Type Severity Reaction Status Date / Time oxycodone [From PERCOCET] Allergy Unknown Verified 03/13/21 06:52 Review of Systems Review of Systems ROS: Yes All systems reviewed with the patient and are negative except as otherwise documented Exam Vital Signs (past 8 hours): - 03/15/21 04:00 03/15/21 08:00 Temperature 97.0 F L 96.6 F L Pulse Rate 71 71 Respiratory Rate 18 16 Blood Pressure 119/64 122/70 Pulse Oximetry 100 100 Oxygen Delivery Method Room Air Oxygen Flow Rate 0 Narrative Exam Narrative: He is a tall statured adult male in no acute distress resting comfortably in bed. Head/neck-sclera clear and pupils are round and equal bilaterally. No visible adenopathy or JVD. [id number] pacemaker site without erythema fluctuance or tenderness. There is equal and unlabored expansion bilaterally. Heart-regular rhythm and rate. Objective Labs Result Diagrams: 03/15/21 04:25 03/15/21 04:25 Labs: Laboratory Results - last 24 hr 03/15/21 03/15/21 04:25 04:25 WBC 10.3 RBC 3.63 L Hgb 11.9 L Hct 35.5 L MCV 97.9 MCH 32.7 MCHC 33.4 RDW 16.9 H Plt Count 306 Neut % (Auto) 70.9 Lymph % (Auto) 21.0 L [place] % (Auto) 5.9 Eos % (Auto) 1.5 L Baso % (Auto) 0.7 Neut # (Auto) 7300 H Lymph # (Auto) 2200 [place] # (Auto) 600 Eos # (Auto) 200 Baso # (Auto) 100 Sodium 137 Potassium 4.0 Chloride 107 Carbon Dioxide 25 BUN 20 Creatinine 0.99 Estimated GFR > 60.0 BUN/Creatinine Ratio 20.2 Glucose 89 Calcium 9.7 Assessment & Plan Assessment & Plan narrative: Assessment: 1. Gross hematuria and clot retention. Plan: 1. Discussion, informed consent obtained today for cystoscopy/clot evacuation/full duration.
[2021-03-15 11:17] LABS: INR 1.1 (0.9-1.3); Prothrombin Time 12.6 SECONDS (10.1-12.7)
[2021-03-15 11:20] LABS: PTT Partial Thromboplastin Tim 33 SECONDS (26.4-36.2)
--- NOTE | 2021-03-15 15:44 | CM.DPC ---
DCP Cont: SW met bedside with pt and MD during rounding and pt continues to have some bleeding and Urologist Dr. Colon to consult and likely plan on surgical intervention later today after pt becomes NPO. Pt agreeable and wants to make sure that he does not discharge until his bleeding has resolved. Pt states he and his spouse have been frustrated with some of the [facility] policies. Plan: SW to follow closely after surgical intervention towards confirming safe plan of d/c home with spouse when medically stable. VIKTORIYA Claros
--- NOTE | 2021-03-15 15:52 | PM.PN.1 ---
Subjective Subjective Date Patient Seen: 03/15/21 Interval history: Patient is a 65-year-old male who was admitted to the hospital as a result of a bladder biopsy resulting in continue as hematuria and clot formation. He has been on a 3 way Redmond with bladder irrigation over the weekend. Despite that he continues to have hematuria. Dr. Colon from Urology was consulted and plans are underway for the patient to be taken to the OR for bladder fulguration. Patient continues to have some cramping in the bladder as well as hematuria. He is adamant he does not want to leave and go back to the [facility]. Exam Vital Signs (past 8 hours): - 03/15/21 08:00 03/15/21 10:44 Temperature 96.6 F L 97.1 F L Pulse Rate 71 65 Respiratory Rate 16 16 Blood Pressure 122/70 122/70 Pulse Oximetry 100 97 Oxygen Delivery Method Room Air Oxygen Flow Rate 0 Narrative Exam Narrative: Pleasant gentleman lying in bed in no obvious distress Lungs: Clear to auscultation Cardiac exam: Regular rate and rhythm normal S1-S2 Abdomen: Soft nontender : Redmond in place with bloody urine Extremities: No edema Objective Labs Result Diagrams: 03/15/21 04:25 03/15/21 04:25 Labs: Laboratory Results - last 24 hr 03/15/21 03/15/21 03/15/21 04:25 04:25 10:12 WBC 10.3 RBC 3.63 L Hgb 11.9 L Hct 35.5 L MCV 97.9 MCH 32.7 MCHC 33.4 RDW 16.9 H Plt Count 306 Neut % (Auto) 70.9 Lymph % (Auto) 21.0 L [place] % (Auto) 5.9 Eos % (Auto) 1.5 L Baso % (Auto) 0.7 Neut # (Auto) 7300 H Lymph # (Auto) 2200 [place] # (Auto) 600 Eos # (Auto) 200 Baso # (Auto) 100 PT 12.6 INR 1.1 APTT 33 Sodium 137 Potassium 4.0 Chloride 107 Carbon Dioxide 25 BUN 20 Creatinine 0.99 Estimated GFR > 60.0 BUN/Creatinine Ratio 20.2 Glucose 89 Calcium 9.7 [facility] Medical History Acquired hypothyroidism (06/06/16) Depression Essential hypertension (06/06/16) Hematuria History of lymphoma (06/06/16) Migraine without status migrainosus, not intractable (06/06/16) Paroxysmal atrial fibrillation (06/06/16) Pure hypercholesterolemia (06/06/16) Shingles Weakness of both lower extremities (08/02/17) Surgical History History of cholecystectomy History of inguinal hernia repair History of lumbar fusion Family History Mother Pancreatic cancer Father Stroke Social History household members: spouse Smoking Status: Never smoker Assessment & Plan Assessment & Plan narrative: This is a 65-year-old male with gross hematuria after cystoscopy/bladder biopsies done at the [facility] last week. He now has gross hematuria and is undergoing 3 way catheter irrigation at the direction of the [facility] Urology physician. He is not on anticoagulation. He reports a benign bladder biopsy result. Gross Hematuria, present on admission. Active. -?probably a clot that fell off after the biopsy? per [facility] phone consultation -the results of the biopsy were not available for the urologist to discuss. The patient reports that he was told that his biopsies were ?benign. ? -continue 3 way catheter with continuous bladder irrigation. -per discussion in the emergency department with the on-call [facility] urologist(at ) will irrigate until clear, then stop irrigation for 2 hours, then give 1 more Liter of irrigation and then if able to void without catheter will discharge home. If not able to void will call the on-call [place] ( urology covering) urologist for further instructions. -discuss with Dr. Colon, urology here at [facility], patient scheduled for definitive operative treatment later today or tomorrow Hypertension, present on admission. Active. -continue sotalol Chronic kidney disease stage 3, present admission. Active. -repeat metabolic panel 03/14 normal, continue IV hydration Hypothyroidism, present on admission. Chronic and stable. -continue levothyroxine Bilateral lower extremity weakness, present on admission. Chronic and stable. -this is chronic for many years after 4 spinal procedures. He is on 100% [place] disability benefits. -continue bilateral AFO when standing/walking Depression, present admission. Chronic and stable. -continue bupropion
[2021-03-15] MEDS: GENTAMICIN 160 MG in SODIUM CHLORIDE 0.9% 100 ML 104 ML IV (16:57)
[2021-03-15] MEDS: LACTATED RINGERS 1,000 ML 42 ML IV ×2 (16:59→18:37)
--- NOTE | 2021-03-15 17:26 | PM.PREOP ---
Pre-operative Note Interval Note History & Physical reviewed/Exam performed by Physician: Yes Changes to H&P: No
[2021-03-15] MEDS: AMPICILLIN/SULBACTAM 3 GM 3 GM in SODIUM CHLORIDE 0.9% 100 ML IV (17:48)
--- NOTE | 2021-03-15 18:22 | SUR.OPER ---
Lithotomy on padded OR bed, head on pillow, arms secured on padded arm boards at <90 degrees abduction. Legs secured in padded yellow fins stirrups.
[2021-03-15] MEDS: BELLADONNA/OPIUM SUPPOSITORIES 1 EACH PR (18:29)
--- NOTE | 2021-03-15 18:59 | PM.OP.1 ---
Operative Date/Time/Diagnoses Date of procedure: 03/15/21 Time of procedure: 18:59 Pre-op diagnosis: 1. Clot retention 2. Gross hematuria Post-op diagnosis: same Procedure & Clinicians Procedure: 1. Cystoscopy and clot evacuation. 2. Cystoscopy and full duration. Same procedure as scheduled: Yes Indications: 1. Clot retention 2. Gross hematuria Surgeon: Billy Colon Click Yes if Unassisted: Yes Anesthesia Type: General Operative Notes Findings: 1. Urethra-normal caliber without annular stricture or lesion. 2. External sphincter-coapted with mild mucosal excoriations. 3. Prostate-4 cm length with elevated median bar mild to moderate lateral lobe hyperplasia. 4. Bladder-approximately 300 cc of variably organizing tenacious clot. There was a large wide-mouth diverticulum emanating off the left lateral floor active bleeding was seen at a site just posterior and superiorly from the mouth of the bladder diverticular opening and then another area at the right lateral wall. Closure Type: not applicable Specimen(s): none sent Applied: catheter (#24F 3 way hematuria catheter) Estimated Blood Loss (mL): 5 Blood products transfused: none Procedure in detail: Patient was positioned supine and administered general anesthesia. He was then repositioned semi lithotomy and the lower abdomen, genitalia, groin were prepped and draped in sterile fashion. Twenty-five Vincentian panendoscope was passed lower urinary tract with findings as described above. The resecting loop was then fitted to the working element and manual disruption of the organizing clot elements was undertaken. The [employer] evacuator was also utilized. Approximately 300 cc of variably organized clot was recovered from the bladder. The cautery loop was then employed to cauterize identified biopsy sites and the to actively bleeding sites described above. At conclusion there was no visible bleeding. The bladder was left partially filled. A [address] hematuria catheter was then passed lower urinary tract. The balloon was inflated to 30 cc. It was then secured to normal saline gravity continuous irrigation. The patient was then repositioned in supine, was awakened, and transferred to a [facility] for transportation to recovery. Complications: none Post-operative Condition: stable Disposition: ICU Plan for aftercare: Follow-up at [facility] following current hospitalization.
[2021-03-15] MEDS: HYDROMORPHONE 2 MG INJ IV ×2 (19:28→19:38)
[2021-03-15] MEDS: LACTATED RINGERS 1,000 ML 125 ML IV (20:58)
[2021-03-16 00:10] VITALS: BP 130/78; PULSE 60; RESP 16; O2SAT 97
[2021-03-16] MEDS: LACTATED RINGERS 1,000 ML 125 ML IV (04:28)
[2021-03-16 04:54] LABS: Add Manual Diff / Slide Review NO; Basophils Absolute Auto 100 /uL (0-100); Basophils Percent Auto 0.7 % (0-2); Eosinophils Absolute Auto 0 /uL (0-450); Hematocrit 35.6 % (41-53); Hemoglobin 11.8 g/dL (13.5-17.5); Lymphocytes Absolute Auto 1600 /uL (1100-4500); Lymphocytes Percent Auto 18.9 % (25-40); Mean Corpuscular HGB Conc 33.1 % (30-36); Mean Corpuscular Hemoglobin 32.5 PG (26-34); Mean Corpuscular Volume 98.1 fL (80-100); Monocytes Absolute Auto 100 /uL (0-900); Neutrophils Absolute Auto 6900 /uL (1500-7000); Neutrophils Percent Auto 79.4 % (50-75); Platelet Count 301 X10^3/uL (150-400); Red Blood Cell Count 3.63 X10^6/uL (4.5-5.9); Red Cell Distribution Width 17.1 % (11.6-14.8); White Blood Cell Count 8.7 X10^3/uL (4.5-11.0)
[2021-03-16 05:01] VITALS: BP 144/93; PULSE 61; RESP 16; TEMP 36.9; O2SAT 100
--- NOTE | 2021-03-16 07:15 | PC.NURSE ---
[employer] Operator Note-Continuous bladder irrigation at slow drip overnight, 1900ml NS in, 2575ml out, total 'true urine' 675ml, pale yellow. Denies abdominal pain, pressure, or cramping.
[2021-03-16] MEDS: LEVOTHYROXINE 150 MCG TABLET PO (07:48)
[2021-03-16 08:00] VITALS: BP 145/84; PULSE 62; RESP 18; TEMP 36.1; O2SAT 98
[2021-03-16] MEDS: SOTALOL 80 MG TABLET 120 MG PO (08:19)
--- NOTE | 2021-03-16 09:09 | PM.DS.1 ---
History of Present Illness History of Present Illness Date Patient Seen: 03/16/21 Chief complaint: Urethral bleeding after 02/24 procedure Narrative: This is a 65-year-old male, disabled with multiple prior back surgeries causing bilateral lower extremity weakness along with a history of lymphoma, with hypertension/atrial fibrillation/hypothyroidism and depression who now presents to the emergency department with onset this morning of gross hematuria. He had a cystoscopy with bladder biopsy done on 02/24 at the [facility] in [place] for hematuria. His urination had been normal without bloody urine until now. With placement of a 3 way catheter and irrigation in the emergency department his bleeding is beginning to clear. He has a white blood count of 13.3 without any urinary tract infection symptoms. The [place] on-call urologist (Dr. Canchola) was contacted who described a continuous bladder irrigation plan as described below. He is on aspirin 81 mg a day but not on any other anticoagulation. There has been no fever, abdominal pain, chills, sweats or dysuria. The pathology report was not available to the urologist who was contacted. The patient reports that he was told that his pathology was ?benign. ? Discharge Providers Provider Date of admission: 03/13/21 09:11 Discharge Date: 03/16/21 Primary care physician: Doctor Nallely MD Consults: 03/15/21 09:40 Consult to Physician Routine Comment: Consulting Provider: Billy Colon Reason for consultation: Marlin Discharge provider: Zabrina Emery MD Summary Hospital Course Discharge Diagnosis: 1. Hematuria following bladder biopsy at [facility] 2. Status post cystoscopy and clot evacuation 3. Hypothyroidism 4. Hypertension 5. Depression 6. History of lymphoma 7. Paroxysmal atrial fibrillation 8. Hyperlipidemia Hospital Course: Patient was admitted to the hospital for evaluation of persistent hematuria following a bladder biopsy February 24. The patient had at 3 way Redmond catheter with continuous bladder irrigation in placed. This continued throughout the weekend with active bleeding and recurrent clot formation. The patient was seen in consultation by Dr. Colon, from Urology. Dr. Colon calmly took him to the operative room and he underwent cystoscopy with clot evacuation. The procedure was successful. The patient's urine is now clear with no further bleeding. His Redmond catheter will remain in place. Patient will need to follow-up with his urologist at the [facility] for ongoing therapy. At this time the patient has no pain. No further hematuria. Is deemed appropriate for discharge and arrangements will be made to discharge him home. Status at Discharge Cognitive/behavioral status at discharge: oriented Functional status at discharge: independent ambulation Overall status at discharge: patient is back to baseline Time Spent with Patient Time spent: Less than 30 minutes Exam Vital Signs (past 8 hours): - 03/16/21 05:01 Temperature 98.5 F Pulse Rate 61 Respiratory Rate 16 Blood Pressure 144/93 H Pulse Oximetry 100 Oxygen Delivery Method Room Air Oxygen Flow Rate 0 Narrative Exam Narrative: Pleasant gentleman in no obvious distress Lungs: Clear to auscultation Cardiac exam: Regular rate and rhythm normal S1-S2 Abdomen: Soft nontender nondistended : Redmond catheter in place, clear yellow urine draining Extremities: No edema Objective Labs Result Diagrams: 03/16/21 04:40 03/15/21 04:25 Labs: Laboratory Results - last 24 hr 03/15/21 03/16/21 10:12 04:40 WBC 8.7 RBC 3.63 L Hgb 11.8 L Hct 35.6 L MCV 98.1 MCH 32.5 MCHC 33.1 RDW 17.1 H Plt Count 301 Neut % (Auto) 79.4 H Lymph % (Auto) 18.9 L [place] % (Auto) 1.0 L Eos % (Auto) 0.0 L Baso % (Auto) 0.7 Neut # (Auto) 6900 Lymph # (Auto) 1600 [place] # (Auto) 100 Eos # (Auto) 0 Baso # (Auto) 100 PT 12.6 INR 1.1 APTT 33 PFSH Medical History Acquired hypothyroidism (06/06/16) Depression Essential hypertension (06/06/16) Hematuria History of lymphoma (06/06/16) Migraine without status migrainosus, not intractable (06/06/16) Paroxysmal atrial fibrillation (06/06/16) Pure hypercholesterolemia (06/06/16) Shingles Weakness of both lower extremities (08/02/17) Surgical History History of cholecystectomy History of inguinal hernia repair History of lumbar fusion Family History Mother Pancreatic cancer Father Stroke Social History household members: spouse Smoking Status: Never smoker Discharge Assessment & Plan Assessment and Plan Assessment: 1. Hematuria, status post bladder biopsy 2. Status post cystoscopy with clot evacuation Plan of Treatment: Discharge home with Redmond catheter Follow-up with urology at [facility] Discharge Plan Discharge Plan Patient Disposition: Home Discharge orders & Medications Prescriptions: Continued atorvastatin 40 MG tablet 40 mg PO HS Qty: 0 RF: 0 aspirin 325 MG tablet,delayed release (DR/EC) 325 mg PO QDAY Qty: 0 RF: 0 Correctol 5 MG tablet 5 mg PO DAILY Qty: 0 RF: 0 levothyroxine [Levoxyl] 150 MCG tablet 150 mcg PO QAM Qty: 0 RF: 0 misoprostol 200 MCG tablet 200 mcg PO DAILY Qty: 0 RF: 0 sotalol [Betapace] 240 MG tablet 120 mg PO BID Qty: 0 RF: 0 valacyclovir 500 MG tablet 500 mg PO QDAY Qty: 0 RF: 0 cholecalciferol (vitamin D3) [Vitamin D3] 1,000 UNIT tablet 1,000 unit PO QDAY Qty: 0 RF: 0 zolpidem [Ambien] 10 MG tablet 10 mg PO HSP PRN (Reason: Insomnia) Qty: 0 RF: 0 cyclobenzaprine 10 MG tablet 10 mg PO TIDP PRN (Reason: Muscle Pain) Qty: 0 RF: 0 allopurinol 300 MG tablet 300 mg PO QDAY Qty: 90 RF: 3 topiramate 50 MG tablet 1 tab PO BID Qty: 180 RF: 3 alfuzosin 10 MG tablet extended release 24 hr 1 tab PO QDAY Qty: 90 RF: 3 bupropion HCl [Wellbutrin SR] 100 mg tablet extended release 12 hr 100 mg PO BID Qty: 180 RF: 3 Follow up/Referrals: Doctor Browning MD [Primary Care Provider] - Discharge Health Status Multidrug resistant organism: No MDRO Diet/Activity/Treatments Diet: Low-fat and Low-sodium Catheter: 2-way Redmond Skin/Wound/Dressing Care Report to your healthcare provider any signs of infection, such as:: chills, fever Other wound treatment: Follow up with Urology at [facility] as discussed Discharge Data Primary Care Provider: Doctor Nallely
[2021-03-16 09:34] VITALS: O2SAT 100
--- NOTE | 2021-03-16 13:01 | PM.PN.1 ---
Subjective Subjective Date Patient Seen: 03/16/21 Time Patient Seen: 06:40 Interval history: The patient is postoperative day 1. Status post cystoscopy, clot evacuation, and fulguration for gross hematuria and clot retention. He reports a smooth and uneventful recovery through the night. He has tolerated general diet. There has been no need for hand irrigation. Current drip rate is nearly shut off. Exam Vital Signs (past 8 hours): - 03/16/21 08:00 03/16/21 09:34 Temperature 97.0 F L Pulse Rate 62 Respiratory Rate 18 Blood Pressure 145/84 H Pulse Oximetry 98 100 Oxygen Delivery Method Room Air Oxygen Flow Rate 0 Narrative Exam Narrative: He is sitting upright and comfortably in bed. No distress. Abdomen-soft, nondistended, nontender. Redmond-intact with light straw-colored clear urine. No clot or blood tinged output. Objective Labs Result Diagrams: 03/16/21 04:40 03/15/21 04:25 Labs: Laboratory Results - last 24 hr 03/16/21 04:40 WBC 8.7 RBC 3.63 L Hgb 11.8 L Hct 35.6 L MCV 98.1 MCH 32.5 MCHC 33.1 RDW 17.1 H Plt Count 301 Neut % (Auto) 79.4 H Lymph % (Auto) 18.9 L [place] % (Auto) 1.0 L Eos % (Auto) 0.0 L Baso % (Auto) 0.7 Neut # (Auto) 6900 Lymph # (Auto) 1600 [place] # (Auto) 100 Eos # (Auto) 0 Baso # (Auto) 100 PFSH Medical History Acquired hypothyroidism (06/06/16) Depression Essential hypertension (06/06/16) Hematuria History of lymphoma (06/06/16) Migraine without status migrainosus, not intractable (06/06/16) Paroxysmal atrial fibrillation (06/06/16) Pure hypercholesterolemia (06/06/16) Shingles Weakness of both lower extremities (08/02/17) Surgical History History of cholecystectomy History of inguinal hernia repair History of lumbar fusion Family History Mother Pancreatic cancer Father Stroke Social History household members: spouse Smoking Status: Never smoker Assessment & Plan Assessment & Plan narrative: Assessment: 1. Stable postoperative day 1. Status post cystoscopy, clot evacuation, and full duration. Plan: 1. Plug Redmond inflow and leave outflow to gravity drainage. Discharge with Redmond indwelling. 2. Follow-up at [facility] department of Urology as previously discussed. 3. Avoid full-strength ASA. I have instructed he and his to contact his primary environmental compliance specialist for follow-up and instruction in this regard. I authorized use of 81 mg ASA daily for the next 2 weeks.
== END 2021-03-16 11:12 | disposition home or self-care (01) | DRG 909 ==
LOC: ED 07:19 → ICU 09:42 → AC 03-14 11:14
PROVIDERS: Emergency Medicine; Nurse Practitioner Family; Specialist; Admitting Provider Family Medicine; Emergency Provider Emergency Medicine; Referring Provider Emergency Medicine; Visit Provider Family Medicine
PROC: 0TBB8ZZ Excision of Bladder, Via Natural or Artificial Opening Endoscopic (ICD-10-PCS; principal; 2021-03-15 15:30)
DX: N99.820 Postprocedural hemorrhage of a genitourinary system organ or structure following a genitourinary system procedure (principal); R31.9 Hematuria, unspecified; N32.3 Diverticulum of bladder; I12.9 Hypertensive chronic kidney disease with stage 1 through stage 4 chronic kidney disease, or unspecified chronic kidney disease; N18.30 Chronic kidney disease, stage 3 unspecified; I48.0 Paroxysmal atrial fibrillation; E03.9 Hypothyroidism, unspecified; F32.9 Major depressive disorder, single episode, unspecified; R53.1 Weakness; Z87.891 Personal history of nicotine dependence; Z20.822 Contact with and (suspected) exposure to COVID-19
CPT/HCPCS: 36415; 36592; 51702; 51798; 52001; 71045; 80048; 80053; 82550; 82962; 83605; 84145; 84484; 85025; 85027; 85610; 85730; 87040; 87635; 87797; 93005; 96360; 99222; 99232; 99284; 99285; C9803; J0295; J1100; J1170; J2405; J2704; J3010

== ENCOUNTER 2021-03-27 19:55 | Emergency (ER) | payer OTHER, SELFPAY ==
[2021-03-13 10:45] VITALS: BMI 33.2
[2021-03-27] VITALS (15 sets, daily range): BP systolic 104–134; BP diastolic 52–76; PULSE 65–128; RESP 9–36; TEMP 35.9; O2SAT 96–100; BMI 69.2
[2021-03-27 21:05] LABS: Add Manual Diff / Slide Review NO; Basophils Absolute Auto 100 /uL (0-100); Basophils Percent Auto 0.5 % (0-2); Eosinophils Absolute Auto 200 /uL (0-450); Hematocrit 39.2 % (41-53); Hemoglobin 12.7 g/dL (13.5-17.5); Lymphocytes Absolute Auto 3000 /uL (1100-4500); Lymphocytes Percent Auto 25.9 % (25-40); Mean Corpuscular HGB Conc 32.4 % (30-36); Mean Corpuscular Hemoglobin 31.9 PG (26-34); Mean Corpuscular Volume 98.5 fL (80-100); Monocytes Absolute Auto 500 /uL (0-900); Monocytes Percent Auto 4.4 % (3-14); Neutrophils Absolute Auto 7800 /uL (1500-7000); Neutrophils Percent Auto 67.2 % (50-75); Platelet Count 292 X10^3/uL (150-400); Red Blood Cell Count 3.98 X10^6/uL (4.5-5.9); Red Cell Distribution Width 16.2 % (11.6-14.8); White Blood Cell Count 11.6 X10^3/uL (4.5-11.0)
[2021-03-27 21:14] LABS: Alanine Aminotransferase 14 IU/L (<50); Albumin 3.2 g/dL (3.5-5.0); Alkaline Phosphatase 129 U/L (38-126); Aspartate Aminotransferase 36 IU/L (17-59); Bilirubin Total 0.4 mg/dL (0.2-1.3); Blood Urea Nitrogen 18 mg/dL (9-20); Calcium 9.4 mg/dL (8.4-10.2); Carbon Dioxide 20 mmol/L (22-32); Chloride 108 mmol/L (98-107); Estimated Glomerular Filt Rate 47.3 mL/min (>60); Globulin 3.1 g/dL (1.7-4.1); Glucose 90 mg/dL (80-110); HEMOLYSIS 23 (0-50); Sodium 135 mmol/L (137-145); Total Protein 6.3 g/dL (6.3-8.2)
[2021-03-27] MEDS: SODIUM CHLORIDE 0.9% 1,000 ML 150 ML IV (21:24)
[2021-03-27 21:26] LABS: Troponin I 0.016 ng/mL (0.01-0.034)
[2021-03-27 23:03] LABS: Bilirubin Urine UA NEGATIVE (NEGATIVE); Color Urine UA YELLOW; Glucose Urine UA NEGATIVE (Negative); Ketones Urine UA NEGATIVE (NEGATIVE); Leukocyte Esterase Urine UA 3+ (NEGATIVE); Nitrite Urine UA NEGATIVE (Negative); Occult Blood Urine UA 3+ (Negative); Protein Urine UA 1+ (Negative); Specific Gravity Urine UA 1.015 (1.000-1.035); Urobilinogen Urine UA 0.2 E.U./dL (0.2); pH Urine UA 6.5 (4.5-8.0)
[2021-03-27 23:08] LABS: Appearance Urine UA Cloudy
[2021-03-27 23:14] LABS: Bacteria Urine Few (2-10); Culture Indicated Urine Specimen Cultured; RBC Urine 10-30/HPF (0-5/HPF); Squamous Epithelial Cell Urine 1-5 /HPF (0-5/HPF); WBC Urine 30-100/HPF (0-5/HPF)
[2021-03-28] VITALS (11 sets, daily range): BP systolic 136–157; BP diastolic 67–81; PULSE 44–78; RESP 16–19; O2SAT 81–100
--- NOTE | 2021-03-28 01:27 | ED_ITS ---
HPI - Dizziness General Chief Complaint: Dizziness Stated Complaint: Chest Pain Time Seen by Provider: 03/27/21 20:00 Source: patient Mode of arrival: EMS Limitations: no limitations History of Present Illness HPI Narrative: 65-year-old male nonsmoker with history of lymphoma, hypertension, depression, shingles, hypothyroidism presents by EMS for evaluation of a few episodes of dizziness with change in position over the past day or 2. He states that he had been in his normal state of health until yesterday when he noticed that after standing for a bit he felt lightheaded and had to sit down. He denies nausea, vomiting, chest pain, shortness of breath, abdominal pain. He frequently has urinary complaints and states that he has been peeing frequently. He denies any recent travel or change in his medicati ons. He denies exposure to other ill persons. Over the course of the evening yesterday he had his symptoms resolve rather spontaneously and felt good over much of the day today up until about noon when again he had been on his feet for a while and he started to feel lightheaded. He denies any syncopal episodes. He states he feels better when he sits down. Related Data Home Medications Medication Instructions Recorded Confirmed aspirin 325 mg tablet,delayed 325 mg PO QDAY #0 tab 06/06/16 03/13/21 release atorvastatin 40 mg tablet 40 mg PO HS #0 tab 06/06/16 03/13/21 bisacodyl 5 mg tablet (Correctol) 5 mg PO DAILY #0 06/06/16 03/13/21 cholecalciferol (vitamin D3) 25 1,000 unit PO QDAY #0 tab 06/06/16 03/13/21 mcg (1,000 unit) tablet (Vitamin D3) levothyroxine 150 mcg tablet 150 mcg PO QAM #0 tab 06/06/16 03/13/21 (Levoxyl) misoprostol 200 mcg tablet 200 mcg PO DAILY #0 06/06/16 03/13/21 sotalol 240 mg tablet (Betapace) 120 mg PO BID #0 06/06/16 03/13/21 valacyclovir 500 mg tablet 500 mg PO QDAY #0 tab 06/06/16 03/13/21 zolpidem 10 mg tablet (Ambien) 10 mg PO HSP PRN #0 tab 06/06/16 03/13/21 cyclobenzaprine 10 mg tablet 10 mg PO TIDP PRN #0 02/21/17 03/13/21 Previous Rx's Medication Instructions Recorded alfuzosin 10 mg tablet,extended 1 tab PO QDAY #90 tab 12/22/17 release 24 hr allopurinol 300 mg tablet 300 mg PO QDAY #90 tab 12/22/17 topiramate 50 mg tablet 1 tab PO BID #180 tab 12/22/17 bupropion HCl 100 mg tablet,12 hr 100 mg PO BID #180 tab 02/05/18 sustained-release (Wellbutrin SR) cefuroxime axetil 500 mg tablet 500 mg PO BID #14 tab 03/28/21 Allergies Allergy/AdvReac Type Severity Reaction Status Date / Time oxycodone [From PERCOCET] Allergy Unknown Verified 03/27/21 20:18 Review of Systems Review of Systems Narrative: GENERAL: See HPI HEENT: Denies sinus pain, ear pain, sore throat, difficulty swallowing, dizziness. RESPIRATORY: Denies dyspnea, cough, wheezing, hemoptysis, sputum. CARDIOVASCULAR: Denies chest pain, palpitations, orthopnea, edema, GASTROINTESTINAL: Denies nausea, vomiting, abdominal pain, diarrhea, constipation, melena. : See HPI MUSCULOSKELETAL: denies weakness, joint pain, or bony pain SKIN: Denies rash, skin lesions, or other NEUROLOGIC: Denies weakness, headache, numbness, change in speech, confusion, seizures, incoordination. PSYCHIATRIC: No concerning psychosocial issues. 12 point review of systems is negative except for those stated above Patient History Medical History Acquired hypothyroidism (06/06/16) Depression Essential hypertension (06/06/16) Hematuria History of lymphoma (06/06/16) Migraine without status migrainosus, not intractable (06/06/16) Paroxysmal atrial fibrillation (06/06/16) Pure hypercholesterolemia (06/06/16) Shingles Weakness of both lower extremities (08/02/17) Surgical History History of cholecystectomy History of inguinal hernia repair History of lumbar fusion Family History Mother Pancreatic cancer Father Stroke Social History household members: spouse Smoking Status: Never smoker Smoking Status: Never smoker alcohol intake frequency: holidays/special occasions only Substance Use Type: does not use Exam Narrative Exam Narrative: GENERAL: [65] year old patient appears stated age. Well- developed patient, in mild distress. HEAD: Atraumatic. Normocephalic. EYES: Pupils equal round and reactive. Extraocular motions intact. No scleral icterus. No injection or drainage. ENT: Dry mucous membranes Nose without bleeding, purulent drainage. Throat without erythema, tonsillar hypertrophy or exudate. Airway patent. NECK: Trachea midline. Non tender CARDIOVASCULAR: Regular rate and rhythm without murmurs, gallops, or rubs. RESPIRATORY: Clear to auscultation. Breath sounds equal bilaterally. No wheezes, rales, or rhonchi. GASTROINTESTINAL: Abdomen soft, non-tender, nondistended. EXTREMITIES: No edema or joint tenderness. BACK: Nontender without deformity or crepitance. No flank tenderness. NEURO: AOx3. SKIN: No rash or erythema of visible areas Initial Vital Signs Initial Vital Signs: Vital Signs Pulse Rate 70 03/27/21 19:57 Respiratory Rate 9 L 03/27/21 19:57 Blood Pressure 131/75 03/27/21 19:57 Pulse Oximetry 100 03/27/21 19:57 Course Orders Ordered: ED Orders 03/27/21 20:06 Complete Blood Count AUTO DIFF Stat Comprehensive Metabolic Panel Stat Troponin I Stat 03/27/21 22:55 Urinalysis and Microscopic Stat Urine Culture Stat Sodium Chloride (Normal Saline 0.9%) 1,000 mls @ 150 mls/hr IV CONT ANDREA Last Infusion: 03/28/21 02:01 Dose: 0 mls/hr Documented by: [email or web address] Admin: 03/27/21 21:24 Dose: 150 mls/hr Documented by: [email or web address] Discontinued Medications Cefazolin Sodium (Cephalexin 250 Mg Prepack) 1 bottle MISC SEEINSTR ONE Stop: 03/28/21 01:29 Last Admin: 03/28/21 02:40 Dose: 1 bottle Documented by: [email or web address] Vital Signs Vital signs: Vital Signs - 8 hr 03/27/21 19:57 03/27/21 20:00 03/27/21 20:18 Temperature Pulse Rate 70 65 Respiratory Rate 9 L 36 H 14 Blood Pressure 131/75 Pulse Oximetry 100 100 03/27/21 20:30 03/27/21 20:31 03/27/21 21:00 Temperature 96.7 F L Pulse Rate 66 66 Respiratory Rate 16 17 Blood Pressure Pulse Oximetry 03/27/21 21:30 03/27/21 22:00 03/27/21 22:30 Temperature Pulse Rate 128 H 69 74 Respiratory Rate 35 H 19 17 Blood Pressure Pulse Oximetry 03/27/21 22:54 03/27/21 23:00 03/27/21 23:30 Temperature Pulse Rate 85 69 71 Respiratory Rate 30 H 19 18 Blood Pressure 126/62 Pulse Oximetry 03/27/21 23:49 03/27/21 23:51 03/27/21 23:52 Temperature Pulse Rate 75 80 91 H Respiratory Rate 24 Blood Pressure 134/76 110/54 L 104/52 L Pulse Oximetry 100 96 03/28/21 00:00 03/28/21 00:30 03/28/21 01:00 Temperature Pulse Rate 70 70 44 L Respiratory Rate 19 16 Blood Pressure Pulse Oximetry 98 100 81 L 03/28/21 01:08 03/28/21 01:10 03/28/21 01:20 Temperature Pulse Rate 68 65 69 Respiratory Rate Blood Pressure 157/81 H 148/73 H 148/75 H Pulse Oximetry 100 100 100 03/28/21 01:30 03/28/21 01:40 03/28/21 01:50 Temperature Pulse Rate 75 76 75 Respiratory Rate Blood Pressure 147/75 H 147/72 H 149/69 H Pulse Oximetry 100 100 100 03/28/21 02:00 03/28/21 02:20 Temperature Pulse Rate 78 74 Respiratory Rate Blood Pressure 136/67 155/81 H Pulse Oximetry 100 100 MDM - Dizziness Lab Data Result diagrams: 03/27/21 20:06 03/27/21 20:06 Labs: Lab Results 03/27/21 03/27/21 03/27/21 Range/Units 20:06 20:06 22:55 WBC 11.6 H (4.5-11.0) X10^3/uL RBC 3.98 L (4.5-5.9) X10^6/uL Hgb 12.7 L (13.5-17.5) g/dL Hct 39.2 L (41-53) % MCV 98.5 (80-100) fL MCH 31.9 (26-34) PG MCHC 32.4 (30-36) % RDW 16.2 H (11.6-14.8) % Plt Count 292 (150-400) X10^3/uL Neut % (Auto) 67.2 (50-75) % Lymph % (Auto) 25.9 (25-40) % [place] % (Auto) 4.4 (3-14) % Eos % (Auto) 2.0 (2-4) % Baso % (Auto) 0.5 (0-2) % Neut # (Auto) 7800 H (7168-5908) /uL Lymph # (Auto) 3000 (7037-3816) /uL [place] # (Auto) 500 (0-900) /uL Eos # (Auto) 200 (0-450) /uL Baso # (Auto) 100 (0-100) /uL Sodium 135 L (137-145) mmol/L Potassium 4.0 (3.4-5.1) mmol/L Chloride 108 H (98-107) mmol/L Carbon Dioxide 20 L (22-32) mmol/L BUN 18 (9-20) mg/dL Creatinine 1.50 H (0.66-1.25) mg/dL Estimated GFR 47.3 L (>60) mL/min BUN/Creatinine Ratio 12.0 (6-22) Glucose 90 (80-110) mg/dL Calcium 9.4 (8.4-10.2) mg/dL Total Bilirubin 0.4 (0.2-1.3) mg/dL AST 36 (17-59) IU/L ALT 14 (<50) IU/L Alkaline Phosphatase 129 H (38-126) U/L Troponin I 0.016 (0.01-0.034) ng/mL Total Protein 6.3 (6.3-8.2) g/dL Albumin 3.2 L (3.5-5.0) g/dL Globulin 3.1 (1.7-4.1) g/dL Albumin/Globulin Ratio 1.0 (1.0-2.8) Urine Color Yellow Urine Appearance Cloudy Urine pH 6.5 (4.5-8.0) Ur Specific [place] 1.015 (1.000-1.035) Urine Protein 1+ H (Negative) Urine Glucose (UA) Negative (Negative) g/dL Urine Ketones Negative (NEGATIVE) Urine Occult Blood 3+ H (Negative) Urine Nitrate Negative (Negative) Urine Bilirubin Negative (NEGATIVE) Urine Urobilinogen 0.2 (0.2) E.U./dL Ur Leukocyte Esterase 3+ H (NEGATIVE) Urine RBC 10-30/hpf H (0-5/HPF) Urine WBC 30-100/hpf H (0-5/HPF) Ur Squamous Epith Cells 1-5 /hpf (0-5/HPF) Urine Bacteria Few (2-10) H (None) Ur Culture Indicated? Specimen cultured MDM Narrative Medical decision making narrative: Patient with significant improvement after above-stated therapies. Labs are reassuring and urine would suggest a UTI. He is no longer symptomatic upon standing able to ambulate with assistance to his vehicle, stating he feels much better. Antibiotics initiated tonight and prescription given for the remainder. He shows no signs of sepsis. Return precautions given and questions answered to his apparent satisfaction Discharge Plan Departure Patient Disposition: Home Clinical Impression: Acute UTI, Acute dehydration Instructions: DI for Dehydration -- Adult, DI for Urinary Tract Infection (UTI) Activity Restrictions/Additional Instructions: *You have been diagnosed with [acute urinary tract infection and dizziness due to dehydration] *What to do: *Please continue to take your regular medications as directed. [ ] New medication prescriptions sent to your pharmacy: [ ] [ ] New medication written as a paper prescription [ ] No new medications given *Please follow up with your primary care provider in 2-3 days, call for an appointment. Let them know you were seen in the Emergency Department and that we ask that you be seen in follow up. We will electronically transmit a record of today's note if your PCP is in our system *If you do not have a primary care provider please contact the [facility] Resource line at [phone]. They will ask some questions about your medical history and help get you set up with a doctor in the community. *Return to Emergency Department if you should have any new, worsening or concerning symptoms, such as [fever greater than 101 F, shaking chills, worsening pain, persistent vomiting or other bothersome symptoms] Prescriptions: New cefuroxime axetil 500 mg tablet 500 mg PO BID Qty: 14 RF: 0 No Action atorvastatin 40 MG tablet 40 mg PO HS Qty: 0 RF: 0 aspirin 325 MG tablet,delayed release (DR/EC) 325 mg PO QDAY Qty: 0 RF: 0 Correctol 5 MG tablet 5 mg PO DAILY Qty: 0 RF: 0 levothyroxine [Levoxyl] 150 MCG tablet 150 mcg PO QAM Qty: 0 RF: 0 misoprostol 200 MCG tablet 200 mcg PO DAILY Qty: 0 RF: 0 sotalol [Betapace] 240 MG tablet 120 mg PO BID Qty: 0 RF: 0 valacyclovir 500 MG tablet 500 mg PO QDAY Qty: 0 RF: 0 cholecalciferol (vitamin D3) [Vitamin D3] 1,000 UNIT tablet 1,000 unit PO QDAY Qty: 0 RF: 0 zolpidem [Ambien] 10 MG tablet 10 mg PO HSP PRN (Reason: Insomnia) Qty: 0 RF: 0 cyclobenzaprine 10 MG tablet 10 mg PO TIDP PRN (Reason: Muscle Pain) Qty: 0 RF: 0 allopurinol 300 MG tablet 300 mg PO QDAY Qty: 90 RF: 3 topiramate 50 MG tablet 1 tab PO BID Qty: 180 RF: 3 alfuzosin 10 MG tablet extended release 24 hr 1 tab PO QDAY Qty: 90 RF: 3 bupropion HCl [Wellbutrin SR] 100 mg tablet extended release 12 hr 100 mg PO BID Qty: 180 RF: 3 Referrals: Jerad Mar ARNP [Primary Care Provider] -
--- NOTE | 2021-03-28 02:28 | PC.NURSE ---
See VS flowsheet for orthostats done 2349, Dr. Bhatt informed at time of completion
[2021-03-28] MEDS: cephALEXin 250 MG PREPACK 1 BOTTLE MISC (02:40)
== END 2021-03-28 02:54 | disposition home or self-care (01) ==
PROVIDERS: Emergency Provider Emergency Medicine; PCP Nurse Practitioner Family
DX: N39.0 Urinary tract infection, site not specified (principal); E86.0 Dehydration; R42 Dizziness and giddiness
CPT/HCPCS: 36415; 80053; 81001; 84484; 85025; 87077; 87086; 87186; 93005; 96360; 96361; 99284

== ENCOUNTER 2021-05-18 15:06 | Emergency (ER) | payer OTHER, SELFPAY ==
[2021-03-13 10:45] VITALS: BMI 33.2
[2021-05-18] VITALS (20 sets, daily range): BP systolic 101–177; BP diastolic 53–109; PULSE 108–120; RESP 17–26; TEMP 36.6; O2SAT 98–100
--- NOTE | 2021-05-18 15:17 | DI.RAD.S_ITS ---
PROCEDURE: XR CHEST 1V INDICATIONS: suspected sepsis TECHNIQUE: One view of the chest was acquired. COMPARISON: [facility], CR, XR CHEST 1V, 03/13/2021, 6:14. FINDINGS: Surgical changes and devices: Left-sided dual-chamber pacemaker present. Thoracolumbar spinal posterior arpan and screw construct. Lungs and pleura: Diffuse reticular chronic interstitial changes present right upper lobe medial pulmonary infiltrate is new from the prior exam. Mediastinum: Mediastinal contours appear normal. Heart size is normal. Bones and chest wall: No suspicious bony lesions. Overlying soft tissues appear unremarkable. IMPRESSION: 1. Right upper lobe pulmonary infiltrate, new from the prior 2. Underlying chronic interstitial changes. Approved by: Mika Chowdhury M.D. on 05/18/2021 at 15:08
--- NOTE | 2021-05-18 15:46 | ED_ITS ---
HPI - General Adult General Chief complaint: Urogenital-Male Stated complaint: Abdominal pain x3 days Time Seen by Provider: 05/18/21 15:29 Source: patient Mode of arrival: EMS Limitations: physical limitation History of Present Illness HPI narrative: Somewhat difficult to obtain any HPI from the patient. For now I can ascertain he recently was diagnosed with a urinary tract infection and was on antibiotics for period of time however stop taking them under the advice of his primary doctor because it was causing him to be very sick. He is here for generally not feeling well and having abdominal discomfort. He is describing nausea. No chest pain or shortness of breath no diarrhea. Related Data Home Medications Medication Instructions Recorded Confirmed aspirin 325 mg tablet,delayed 325 mg PO QDAY #0 tab 06/06/16 03/13/21 release atorvastatin 40 mg tablet 40 mg PO HS #0 tab 06/06/16 03/13/21 bisacodyl 5 mg tablet (Correctol) 5 mg PO DAILY #0 06/06/16 03/13/21 cholecalciferol (vitamin D3) 25 1,000 unit PO QDAY #0 tab 06/06/16 03/13/21 mcg (1,000 unit) tablet (Vitamin D3) levothyroxine 150 mcg tablet 150 mcg PO QAM #0 tab 06/06/16 03/13/21 (Levoxyl) misoprostol 200 mcg tablet 200 mcg PO DAILY #0 06/06/16 03/13/21 sotalol 240 mg tablet (Betapace) 120 mg PO BID #0 06/06/16 03/13/21 valacyclovir 500 mg tablet 500 mg PO QDAY #0 tab 06/06/16 03/13/21 zolpidem 10 mg tablet (Ambien) 10 mg PO HSP PRN #0 tab 06/06/16 03/13/21 cyclobenzaprine 10 mg tablet 10 mg PO TIDP PRN #0 02/21/17 03/13/21 Previous Rx's Medication Instructions Recorded alfuzosin 10 mg tablet,extended 1 tab PO QDAY #90 tab 12/22/17 release 24 hr allopurinol 300 mg tablet 300 mg PO QDAY #90 tab 12/22/17 topiramate 50 mg tablet 1 tab PO BID #180 tab 12/22/17 bupropion HCl 100 mg tablet,12 hr 100 mg PO BID #180 tab 02/05/18 sustained-release (Wellbutrin SR) cefuroxime axetil 500 mg tablet 500 mg PO BID #14 tab 03/28/21 Allergies Allergy/AdvReac Type Severity Reaction Status Date / Time oxycodone [From PERCOCET] Allergy Unknown Verified 03/27/21 20:18 Review of Systems Constitutional Constitutional: Denies fever(s) Cardiovascular Cardiovascular: Reports system reviewed and no additional complaints, except as documented Respiratory Respiratory: Reports system reviewed and no additional complaints, except as documented Gastrointestinal Gastrointestinal: Reports as per HPI Genitourinary Genitourinary: Reports system reviewed and no additional complaints, except as documented Musculoskeletal Musculoskeletal: Reports system reviewed and no additional complaints, except as documented Integumentary/Breasts Skin/Breast: Reports system reviewed and no additional complaints, except as documented Neurologic Neurologic: Reports system reviewed and no additional complaints, except as documented Hematologic/Lymphatic On Anticoagulants: No Patient History Medical History Acquired hypothyroidism (06/06/16) Depression Essential hypertension (06/06/16) Hematuria History of lymphoma (06/06/16) Migraine without status migrainosus, not intractable (06/06/16) Paroxysmal atrial fibrillation (06/06/16) Pure hypercholesterolemia (06/06/16) Shingles Weakness of both lower extremities (08/02/17) Surgical History History of cholecystectomy History of inguinal hernia repair History of lumbar fusion Family History Mother Pancreatic cancer Father Stroke Social History household members: spouse Smoking Status: Never smoker Smoking Status: Never smoker alcohol intake frequency: holidays/special occasions only Substance Use Type: does not use Exam Initial Vital Signs Initial Vital Signs: Vital Signs Temperature 97.9 F 05/18/21 15:11 Pulse Rate 117 H 05/18/21 15:11 Respiratory Rate 18 05/18/21 15:11 Blood Pressure 101/53 L 05/18/21 15:11 Pulse Oximetry 98 05/18/21 15:11 Const General: No comfortable HENMT Head: normal to inspection and normocephalic Eyes General: appearance normal, both eyes and all related structures Resp Effort & Inspection: normal respiratory effort Auscultation: clear to auscultation bilaterally Cardio Rate: regular rate Rhythm: regular rhythm GI Palpation: soft and tender Skin General: no rashes or lesions noted Neuro General: patient alert, patient awake and moves all extremities Extrem General: normal to inspection and capillary refill normal Psych Appearance: disheveled Course Orders Ordered: ED Orders 05/18/21 15:17 XR chest 1V Stat EKG-12 Lead Stat RT Consult Eval and Treat Now 05/18/21 15:41 Complete Blood Count AUTO DIFF Stat Comprehensive Metabolic Panel Stat Lactate (Lactic Acid) Stat Lipase Stat Procalcitonin Stat 05/18/21 15:48 Blood Culture Stat 05/18/21 16:33 COVID19 -Nasal swab/Pre-Proc Stat 05/18/21 16:35 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) Stat 05/18/21 16:36 CT abdomen pelvis w con Stat CT head/brain wo con Stat Sodium Chloride (Normal Saline 0.9%) 1,000 mls @ 1,000 mls/hr IV BOLUS ONE Stop: 05/18/21 20:00 Last Admin: 05/18/21 19:04 Dose: 1,000 mls/hr Documented by: BARON Discontinued Medications Sodium Chloride (Normal Saline 0.9%) 1,000 mls @ 1,000 mls/hr IV BOLUS ONE Stop: 05/18/21 16:16 Last Infusion: 05/18/21 18:00 Dose: 0 mls/hr Documented by: Admin: 05/18/21 16:36 Dose: 1,000 mls/hr Documented by: BARON Levetiracetam 1,000 mg/ Sodium (Chloride) 110 mls @ 440 mls/hr IV NOW ONE Stop: 05/18/21 19:07 Lorazepam (Lorazepam 2 Mg/Ml Inj) 2 mg IV NOW ONE Stop: 05/18/21 16:32 Last Admin: 05/18/21 16:35 Dose: 2 mg Documented by: BARON Lorazepam (Lorazepam 2 Mg/Ml Inj) 1 mg IV NOW ONE Stop: 05/18/21 17:09 Last Admin: 05/18/21 16:55 Dose: 1 mg Documented by: BARON Ondansetron HCl (Ondansetron 4 Mg/2 Ml Inj) 4 mg IV NOW ONE Stop: 05/18/21 15:48 Last Admin: 05/18/21 16:36 Dose: 4 mg Documented by: BARON Vital Signs Vital signs: Vital Signs - 8 hr 05/18/21 15:11 05/18/21 16:22 05/18/21 16:26 Temperature 97.9 F Pulse Rate 117 H 117 H 114 H Respiratory Rate 18 22 Blood Pressure 101/53 L 110/71 Pulse Oximetry 98 100 100 05/18/21 16:30 05/18/21 17:03 05/18/21 17:04 Temperature Pulse Rate 112 H 119 H 120 H Respiratory Rate 24 21 Blood Pressure 158/105 H Pulse Oximetry 100 100 100 05/18/21 17:30 05/18/21 17:31 05/18/21 18:00 Temperature Pulse Rate 119 H 118 H 114 H Respiratory Rate 23 22 21 Blood Pressure 167/82 H 161/96 H Pulse Oximetry 99 100 100 Medical Decision Making Medical Records Medical records reviewed: Yes I reviewed the patient's medical records. Lab Data Lab results reviewed: Yes I reviewed the patient's lab results. Result diagrams: 05/18/21 15:41 05/18/21 15:41 Labs: Lab Results 05/18/21 05/18/21 05/18/21 Range/Units 15:41 15:41 15:41 WBC 8.5 (4.5-11.0) X10^3/uL RBC 4.35 L (4.5-5.9) X10^6/uL Hgb 13.7 (13.5-17.5) g/dL Hct 42.2 (41-53) % MCV 96.9 (80-100) fL MCH 31.5 (26-34) PG MCHC 32.5 (30-36) % RDW 16.8 H (11.6-14.8) % Plt Count 344 (150-400) X10^3/uL Neut % (Auto) 64.2 (50-75) % Lymph % (Auto) 30.0 (25-40) % [place] % (Auto) 4.9 (3-14) % Eos % (Auto) 0.2 L (2-4) % Baso % (Auto) 0.7 (0-2) % Neut # (Auto) 5500 (5206-0339) /uL Lymph # (Auto) 2600 (8743-9001) /uL [place] # (Auto) 400 (0-900) /uL Eos # (Auto) 0 (0-450) /uL Baso # (Auto) 100 (0-100) /uL Sodium 133 L (137-145) mmol/L Potassium 3.8 (3.4-5.1) mmol/L Chloride 105 (98-107) mmol/L Carbon Dioxide 20 L (22-32) mmol/L BUN 19 (9-20) mg/dL Creatinine 1.49 H (0.66-1.25) mg/dL Estimated GFR 47.6 L (>60) mL/min BUN/Creatinine Ratio 12.8 (6-22) Glucose 92 (80-110) mg/dL Lactate 2.3 H (0.7-2.1) mmol/L Calcium 10.1 (8.4-10.2) mg/dL Total Bilirubin 0.5 (0.2-1.3) mg/dL AST 26 (17-59) IU/L ALT 13 (<50) IU/L Alkaline Phosphatase 155 H (38-126) U/L Total Protein 6.9 (6.3-8.2) g/dL Albumin 3.7 (3.5-5.0) g/dL Globulin 3.2 (1.7-4.1) g/dL Albumin/Globulin Ratio 1.2 (1.0-2.8) Lipase 54 (23-300) U/L Procalcitonin 0.11 (<0.5) ng/mL SARS-CoV-2 (PCR) (Negative) 05/18/21 05/18/21 Range/Units 16:33 16:35 WBC (4.5-11.0) X10^3/uL RBC (4.5-5.9) X10^6/uL Hgb (13.5-17.5) g/dL Hct (41-53) % MCV (80-100) fL MCH (26-34) PG MCHC (30-36) % RDW (11.6-14.8) % Plt Count (150-400) X10^3/uL Neut % (Auto) (50-75) % Lymph % (Auto) (25-40) % [place] % (Auto) (3-14) % Eos % (Auto) (2-4) % Baso % (Auto) (0-2) % Neut # (Auto) (0983-2286) /uL Lymph # (Auto) (9703-0499) /uL Dup[place] # (Auto) (0-900) /uL Eos # (Auto) (0-450) /uL Baso # (Auto) (0-100) /uL Sodium (137-145) mmol/L Potassium (3.4-5.1) mmol/L Chloride (98-107) mmol/L Carbon Dioxide (22-32) mmol/L BUN (9-20) mg/dL Creatinine (0.66-1.25) mg/dL Estimated GFR (>60) mL/min BUN/Creatinine Ratio (6-22) Glucose (80-110) mg/dL Lactate (0.7-2.1) mmol/L Calcium (8.4-10.2) mg/dL Total Bilirubin (0.2-1.3) mg/dL AST (17-59) IU/L ALT (<50) IU/L Alkaline Phosphatase (38-126) U/L Total Protein (6.3-8.2) g/dL Albumin (3.5-5.0) g/dL Globulin (1.7-4.1) g/dL Albumin/Globulin Ratio (1.0-2.8) Lipase (23-300) U/L Procalcitonin (<0.5) ng/mL SARS-CoV-2 (PCR) Negative Negative (Negative) Imaging Data CT scan - head: Radiologist's Impression: No acute abnormalities The initial report that was placed under the patient's head CT is not correct. It was a dictation for a another study. I received word from the certified composites technician that the radiologist stated that this patient's head CT showed no acute issues. CT scan - abdomen/pelvis: Radiologist's Impression: No acute CT findings in the abdomen and pelvis Stable asymmetric bladder wall thickening remains concerning for neoplastic involvement. Stable left bladder diverticulum. Thoracolumbar posterior lateral fusion. Central decompression of large arpan and screw construct remained stable from prior exam ECG Data Attestation: I personally reviewed and interpreted this ECG as follows: Interpretation: Sinus tachycardia Ventricular rate of 119 Normal QRS Normal QTC Nonspecific ST T wave changes MDM Narrative Medical decision making narrative: Upon arrival patient appeared fairly he will. Was tachycardic. Was diaphoretic. Had generalized abdominal discomfort. Labs were ordered. Fluids were ordered. When I went into re-evaluate the patient he had a seizure. Lasted approximately 30 seconds. Resolved on its own. He was given 2 mg of Ativan right at the end of the seizure. Was not hypoxic. Review of his medical record did not show any previous seizure history. Head CT was ordered. It was unremarkable. CT scan of his abdomen pelvis was ordered and shows no acute changes. Patient did not have leukocytosis. Lactate slightly elevated. Repeat lactate was pending. Review of his prior urine culture shows multiple bacteria that were sensitive to Macrobid. Patient did recover. He was certainly postictal for a while afterwards. Apparently he has had 1 prior seizure earlier this month. He is not on any anti seizure medications. He does have a follow-up with Neurology next month. Because of his 2nd seizure today will start him on Keppra. He was given Keppra here in the ER. Patient has been unable to provide is urine here in the ER. An initial attempt to pass a [place] was unsuccessful. Bladder scan shows approximately 150 cc. Patient has no urge to urinate. Will give more fluids. Patient is still tachycardic. Care turned over to Dr. Lujan to follow up on repeat lactate, fluids, re-evaluate and disposition. Critical Care Time Critical Care Time Critical Care Time: Yes Total Critical Care Time: 35 Attestation: The high probability of a clinically significant, sudden or life threatening deterioration of the neurologic system(s) required my full and direct attention, intervention and personal management. The aggregate critical care time was [35] minutes. This time is in addition to time spent performing reported procedures but includes the following: [x] Data Review and interpretation [x] Patient assessment and monitoring of vital signs [x] Documentation [x] Medication orders and management Discharge Plan Departure Prescriptions: No Action atorvastatin 40 MG tablet 40 mg PO HS Qty: 0 RF: 0 aspirin 325 MG tablet,delayed release (DR/EC) 325 mg PO QDAY Qty: 0 RF: 0 Correctol 5 MG tablet 5 mg PO DAILY Qty: 0 RF: 0 levothyroxine [Levoxyl] 150 MCG tablet 150 mcg PO QAM Qty: 0 RF: 0 misoprostol 200 MCG tablet 200 mcg PO DAILY Qty: 0 RF: 0 sotalol [Betapace] 240 MG tablet 120 mg PO BID Qty: 0 RF: 0 valacyclovir 500 MG tablet 500 mg PO QDAY Qty: 0 RF: 0 cholecalciferol (vitamin D3) [Vitamin D3] 1,000 UNIT tablet 1,000 unit PO QDAY Qty: 0 RF: 0 zolpidem [Ambien] 10 MG tablet 10 mg PO HSP PRN (Reason: Insomnia) Qty: 0 RF: 0 cyclobenzaprine 10 MG tablet 10 mg PO TIDP PRN (Reason: Muscle Pain) Qty: 0 RF: 0 allopurinol 300 MG tablet 300 mg PO QDAY Qty: 90 RF: 3 topiramate 50 MG tablet 1 tab PO BID Qty: 180 RF: 3 alfuzosin 10 MG tablet extended release 24 hr 1 tab PO QDAY Qty: 90 RF: 3 bupropion HCl [Wellbutrin SR] 100 mg tablet extended release 12 hr 100 mg PO BID Qty: 180 RF: 3 cefuroxime axetil 500 mg tablet 500 mg PO BID Qty: 14 RF: 0 Referrals: Jerad Mar ARNP [Primary Care Provider] -
[2021-05-18 15:55] LABS: Add Manual Diff / Slide Review NO; Basophils Absolute Auto 100 /uL (0-100); Basophils Percent Auto 0.7 % (0-2); Eosinophils Absolute Auto 0 /uL (0-450); Eosinophils Percent Auto 0.2 % (2-4); Hematocrit 42.2 % (41-53); Hemoglobin 13.7 g/dL (13.5-17.5); Lymphocytes Absolute Auto 2600 /uL (1100-4500); Mean Corpuscular HGB Conc 32.5 % (30-36); Mean Corpuscular Hemoglobin 31.5 PG (26-34); Mean Corpuscular Volume 96.9 fL (80-100); Monocytes Absolute Auto 400 /uL (0-900); Monocytes Percent Auto 4.9 % (3-14); Neutrophils Absolute Auto 5500 /uL (1500-7000); Neutrophils Percent Auto 64.2 % (50-75); Platelet Count 344 X10^3/uL (150-400); Red Blood Cell Count 4.35 X10^6/uL (4.5-5.9); Red Cell Distribution Width 16.8 % (11.6-14.8); White Blood Cell Count 8.5 X10^3/uL (4.5-11.0)
[2021-05-18 16:06] LABS: Alanine Aminotransferase 13 IU/L (<50); Albumin 3.7 g/dL (3.5-5.0); Albumin Globulin Ratio 1.2 (1.0-2.8); Alkaline Phosphatase 155 U/L (38-126); Aspartate Aminotransferase 26 IU/L (17-59); BUN Creatinine Ratio 12.8 (6-22); Bilirubin Total 0.5 mg/dL (0.2-1.3); Blood Urea Nitrogen 19 mg/dL (9-20); Calcium 10.1 mg/dL (8.4-10.2); Carbon Dioxide 20 mmol/L (22-32); Chloride 105 mmol/L (98-107); Estimated Glomerular Filt Rate 47.6 mL/min (>60); Globulin 3.2 g/dL (1.7-4.1); Glucose 92 mg/dL (80-110); HEMOLYSIS < 15 (0-50); Lipase 54 U/L (23-300); Potassium 3.8 mmol/L (3.4-5.1); Sodium 133 mmol/L (137-145); Total Protein 6.9 g/dL (6.3-8.2)
[2021-05-18 16:07] LABS: Lactate (Lactic Acid) 2.3 mmol/L (0.7-2.1)
[2021-05-18 16:23] LABS: Procalcitonin 0.11 ng/mL (<0.5)
--- NOTE | 2021-05-18 16:30 | PC.NURSE ---
went in to assess pt and saw the pt start to seize. 2mg IV ativan ordered and given. Pt is now post ictal. Not responding to verbal stimuli but maintaining airway.
[2021-05-18] MEDS: LORazepam 2 MG/ML INJ IV (16:35)
[2021-05-18] MEDS: ONDANSETRON 4 MG/2 ML INJ IV (16:36)
[2021-05-18] MEDS: SODIUM CHLORIDE 0.9% 1,000 ML 1000 ML IV ×2 (16:36→19:04)
--- NOTE | 2021-05-18 16:36 | DI.CT.S_ITS ---
This report includes an Addendum and supersedes previous reports for this exam. PROCEDURE: CT HEAD/BRAIN WO CON INDICATIONS: First-time seizure TECHNIQUE: Noncontrast 4.5 mm thick angled axial sections acquired from the foramen magnum to the vertex, with coronal and sagittal reformats. For radiation dose reduction, the following was used: automated exposure control, adjustment of mA and/or kV according to patient size. COMPARISON: None. FINDINGS: Image quality: Motion is present limiting areas fine detail evaluation. CSF spaces: Basal cisterns are patent. No extra-axial fluid collections. Ventricles are normal in size and shape. Brain: No midline shift. No intracranial masses or hemorrhage. Coffman-white matter interface is normal. Skull and face: Calvarium and visualized facial bones are intact, without suspicious lesions. Sinuses: Visualized sinuses and mastoids are clear. IMPRESSION: No visualized acute fracture or dislocation. However, if clinical concern and/or pain persist, short interval imaging followup in 7-10 days is recommended, as occult injury cannot be definitively excluded. Dictated by: Yenny Jamil M.D. on 05/18/2021 at 17:08 Approved by: Yenny Jamil M.D. on 05/18/2021 at 17:09 ADDENDUM: In addition to the above: Impression: No acute intracranial process. Dictated by: Yenny Jamil M.D. on 05/18/2021 at 17:58 Approved by: Yenny Jamil M.D. on 05/18/2021 at 17:59
--- NOTE | 2021-05-18 16:36 | DI.CT.S_ITS ---
PROCEDURE: CT ABDOMEN PELVIS W CON INDICATIONS: Generalized abdominal pain - seizure TECHNIQUE: After the administration of oral and IV contrast, axial sections were acquired from the lung bases to the pubic symphysis. Coronal and sagittal reformats were performed. For radiation dose reduction, the following was used: automated exposure control, adjustment of mA and/or kV according to patient size. COMPARISON: [facility], CT, CT ABDOMEN PELVIS W CON, 02/05/2021, 4:48. FINDINGS: Lower thorax: Peripheral chronic interstitial change noted both lung bases, similar prior. Cardiac pacer leads noted. Heart size normal. Liver: 1.1 cm right hepatic cyst is similar prior. Biliary system: Cholecystectomy. No intra or extrahepatic bile duct dilation. Pancreas: Unremarkable without mass or inflammation evident. Spleen: Normal in size and density. Adrenals: Normal morphology and density. Reproductive system: Unremarkable as visualized. Urinary system: Bilateral renal atrophy without hydronephrosis present. The urinary bladder is partially decompressed and shows asymmetric wall thickening greater on the right, similar to the prior exam. Left-sided bladder diverticulum again noted. Gastrointestinal system: The bowel appears unremarkable with no evidence of bowel obstruction or inflammation. The stomach appears unremarkable. Appendix: No findings to suggest acute appendicitis. Peritoneal spaces: No mesenteric or retroperitoneal adenopathy. No free air. No free fluid. Vasculature: The IVC, aorta and iliac vasculature are unremarkable. Musculoskeletal: Degenerative changes noted in both hips. Extensive lumbar spine decompression posterolateral fusion and posterior arpan and screw instrumentation noted with interbody fusion in the lower lumbar spine, stable from the prior. Prior vertebroplasty in the lower thoracic spine. No evidence of hardware failure. IMPRESSION: 1. No acute CT findings in the abdomen and pelvis. 2. Stable asymmetric bladder wall thickening remains concerning for neoplastic involvement. Stable left bladder diverticulum. 3. Thoracolumbar posterolateral fusion, central decompression and large arpan and screw construct remains stable from the prior exam. Approved by: Mika Chowdhury M.D. on 05/18/2021 at 16:46
[2021-05-18] MEDS: LORazepam 2 MG/ML INJ 1 MG IV (16:55)
[2021-05-18 17:02] LABS: COVID19 -Nasal RAPID Negative (Negative)
--- NOTE | 2021-05-18 17:07 | PC.NURSE ---
Unable to do a through Male assessment at this time d/t pt being post ictal
[2021-05-18 17:34] LABS: COVID19 - ADMIT (NP swab/PCR) Negative (Negative)
[2021-05-18 17:52] LABS: Reflexed Lactate in 2 Hours Y
[2021-05-18 19:06] LABS: Lactate 2HR (Lactic Acid Rflx) 1.4 mmol/L (0.7-2.1)
[2021-05-18] MEDS: levETIRAcetam 1,000 MG in SODIUM CHLORIDE 0.9% 100 ML 440 ML IV (19:22)
--- NOTE | 2021-05-18 19:31 | PC.NURSE ---
Pt states that his lower abd has been hurting for the past few days. Recent UTI but was unable to finish his PO antbx d/t an upset stomach. States it morrison slightly when he urinates. No other complaints like n/v/d/ or constipation.
[2021-05-18 21:19] LABS: Bacteria Urine Few (2-10); Culture Indicated Urine Specimen Cultured; RBC Urine >100/HPF (0-5/HPF); Squamous Epithelial Cell Urine 0-1 /HPF (0-5/HPF); WBC Urine >100/HPF (0-5/HPF)
== END 2021-05-18 23:11 | disposition home or self-care (01) ==
PROVIDERS: Emergency Medicine; Emergency Provider Emergency Medicine; PCP Nurse Practitioner Family
DX: R56.9 Unspecified convulsions (principal); N39.0 Urinary tract infection, site not specified; R00.0 Tachycardia, unspecified; R11.0 Nausea; Z20.822 Contact with and (suspected) exposure to COVID-19; R79.89 Other specified abnormal findings of blood chemistry
CPT/HCPCS: 36415; 70450; 71045; 74177; 80053; 81003; 81015; 83605; 83690; 84145; 85025; 87040; 87086; 87635; 93005; 93010; 96361; 96365; 96375; 99283; 99291; C9803; J1953; J2060; J2405; Q9967

== ENCOUNTER 2021-06-04 19:39 | Emergency (ER) | payer OTHER, SELFPAY ==
[2021-03-13 10:45] VITALS: BMI 33.2
[2021-06-04 19:57] VITALS: BP 110/68; PULSE 97; RESP 18; TEMP 36.6; O2SAT 100; BMI 32.5
[2021-06-04 20:00] VITALS: BP 137/73; PULSE 93; RESP 18; O2SAT 100
[2021-06-04 20:12] LABS: Add Manual Diff / Slide Review NO; Basophils Absolute Auto 100 /uL (0-100); Basophils Percent Auto 0.7 % (0-2); Eosinophils Absolute Auto 0 /uL (0-450); Eosinophils Percent Auto 0.3 % (2-4); Hematocrit 44.2 % (41-53); Hemoglobin 14.2 g/dL (13.5-17.5); Lymphocytes Absolute Auto 2700 /uL (1100-4500); Lymphocytes Percent Auto 36.1 % (25-40); Mean Corpuscular HGB Conc 32.1 % (30-36); Mean Corpuscular Hemoglobin 31.1 PG (26-34); Mean Corpuscular Volume 96.7 fL (80-100); Monocytes Absolute Auto 400 /uL (0-900); Neutrophils Absolute Auto 4200 /uL (1500-7000); Neutrophils Percent Auto 56.9 % (50-75); Platelet Count 239 X10^3/uL (150-400); Red Blood Cell Count 4.57 X10^6/uL (4.5-5.9); Red Cell Distribution Width 15.9 % (11.6-14.8); White Blood Cell Count 7.5 X10^3/uL (4.5-11.0)
[2021-06-04 20:23] LABS: Alanine Aminotransferase 9 IU/L (<50); Albumin 3.4 g/dL (3.5-5.0); Albumin Globulin Ratio 1.1 (1.0-2.8); Alkaline Phosphatase 124 U/L (38-126); Aspartate Aminotransferase 22 IU/L (17-59); BUN Creatinine Ratio 16.9 (6-22); Bilirubin Total 0.7 mg/dL (0.2-1.3); Blood Urea Nitrogen 20 mg/dL (9-20); Calcium 9.4 mg/dL (8.4-10.2); Carbon Dioxide 26 mmol/L (22-32); Chloride 102 mmol/L (98-107); Estimated Glomerular Filt Rate > 60.0 mL/min (>60); Glucose 97 mg/dL (80-110); HEMOLYSIS 18 (0-50); Lipase 40 U/L (23-300); Potassium 3.3 mmol/L (3.4-5.1); Sodium 136 mmol/L (137-145); Total Protein 6.4 g/dL (6.3-8.2)
--- NOTE | 2021-06-04 20:24 | DI.RAD.S_ITS ---
PROCEDURE: XR CHEST 1V INDICATIONS: sob TECHNIQUE: One view of the chest was acquired. COMPARISON: [facility], CR, XR CHEST 1V, 05/18/2021, 15:48. FINDINGS: Surgical changes and devices: Left-sided pacer. Thoracolumbar fusion hardware. Lungs and pleura: Mild patchy bilateral perihilar and basilar airspace opacity. No pleural effusions or pneumothorax. Mediastinum: Mediastinal contours appear normal. Heart size is normal. Bones and chest wall: No suspicious bony lesions. Overlying soft tissues appear unremarkable. IMPRESSION: Mild atypical pneumonia Dictated by: Ciara Emanuel M.D. on 06/04/2021 at 21:20 Approved by: Ciara Emanuel M.D. on 06/04/2021 at 21:21
[2021-06-04] MEDS: SODIUM CHLORIDE 0.9% 1,000 ML 100 ML IV (20:28)
--- NOTE | 2021-06-04 20:28 | ED.ABDPAIN ---
HPI - Abdominal Pain General Chief Complaint: Abdominal Pain Stated Complaint: Abdominal Pain Time Seen by Provider: 06/04/21 20:24 Source: patient and EMS Mode of arrival: EMS Limitations: no limitations History of Present Illness HPI narrative: Patient is a 65-year-old male who has complicated history of Hodgkin's lymphoma, coronary artery disease, sick sinus syndrome with pacemaker, seizures which sound like ups onset seizures on Keppra, multiple back surgeries frequent UTIs presenting today with increasing nausea. He says that he has had nausea in the past the last few days he has had persistent nausea unable to eat or drink. She is passing gas. No fever or chills. Says does have some shortness of breath he denies any chest pain. He is supposed to see a neurologist in 4 days for an EEG. He says medications frequently are getting changed by all of his specialist. He says he she feels stabilized and then something is changed. He was taken off of his sotalol recently by his polysomnographic technologist. He was seen and evaluated here May 18 for somewhat similar symptoms, but at that time had a seizure and I believe was when he was started Keppra. He states his seizures have been increasing hence the Neurology could evaluation in 4 days. EMS reports 2-3 seconds of shaking in their presence however he states that his seizures he blacks out and he does not have tonic clonic seizures. He complains of being intermittently dizzy but now states dizziness has resolved. He denies any numbness tingling or focal deficits. He has really not had anything to eat for the last 3 weeks but is craving food. He is able to keep small sips of liquids down. He does not have any anti nausea medication at home. He is frustrated with his care at the [facility]. Related Data Home Medications Medication Instructions Recorded Confirmed aspirin 325 mg tablet,delayed 325 mg PO QDAY #0 tab 06/06/16 03/13/21 release atorvastatin 40 mg tablet 40 mg PO HS #0 tab 06/06/16 03/13/21 bisacodyl 5 mg tablet (Correctol) 5 mg PO DAILY #0 06/06/16 03/13/21 cholecalciferol (vitamin D3) 25 1,000 unit PO QDAY #0 tab 06/06/16 03/13/21 mcg (1,000 unit) tablet (Vitamin D3) levothyroxine 150 mcg tablet 150 mcg PO QAM #0 tab 06/06/16 03/13/21 (Levoxyl) misoprostol 200 mcg tablet 200 mcg PO DAILY #0 06/06/16 03/13/21 sotalol 240 mg tablet (Betapace) 120 mg PO BID #0 06/06/16 03/13/21 valacyclovir 500 mg tablet 500 mg PO QDAY #0 tab 06/06/16 03/13/21 zolpidem 10 mg tablet (Ambien) 10 mg PO HSP PRN #0 tab 06/06/16 03/13/21 cyclobenzaprine 10 mg tablet 10 mg PO TIDP PRN #0 02/21/17 03/13/21 Previous Rx's Medication Instructions Recorded alfuzosin 10 mg tablet,extended 1 tab PO QDAY #90 tab 12/22/17 release 24 hr allopurinol 300 mg tablet 300 mg PO QDAY #90 tab 12/22/17 topiramate 50 mg tablet 1 tab PO BID #180 tab 12/22/17 bupropion HCl 100 mg tablet,12 hr 100 mg PO BID #180 tab 02/05/18 sustained-release (Wellbutrin SR) cefuroxime axetil 500 mg tablet 500 mg PO BID #14 tab 03/28/21 levetiracetam 500 mg tablet 500 mg PO BID #60 tab 05/18/21 (Keppra) ondansetron 4 mg disintegrating 4 mg PO Q6HR PRN #10 tab 06/05/21 tablet Allergies Allergy/AdvReac Type Severity Reaction Status Date / Time oxycodone [From PERCOCET] Allergy Unknown Verified 03/27/21 20:18 Review of Systems Review of Systems ROS Unobtainable: All systems reviewed & are unremarkable except as noted in HPI and below Constitutional Constitutional: Reports anorexia, Denies chills, Denies excessive sweating, Reports fatigue, Denies headache(s), Reports malaise, Reports poor appetite and Reports weight loss Eyes Eyes: Denies blurry vision ENT Ears, Nose, Mouth, and Throat: Denies vertigo, Reports dizziness and Denies headache(s) Cardiovascular Cardiovascular: Denies chest pain, Denies irregular heart rhythm and Reports leg edema Respiratory Respiratory: Denies chest congestion and Reports cough (Very brief and nonproductive dry) Gastrointestinal Gastrointestinal: Reports as per HPI, Denies abdominal pain and Reports nausea Genitourinary Genitourinary: Reports as per HPI Musculoskeletal Musculoskeletal: Reports back pain (Chronic) Integumentary/Breasts Skin/Breast: Denies rash Neurologic Neurologic: Denies vertigo, Reports dizziness, Denies headache(s) and Reports seizure-like activity Endocrine Endocrine: Denies excessive sweating and Reports fatigue Patient History Medical History Acquired hypothyroidism (06/06/16) Depression Essential hypertension (06/06/16) Hematuria History of lymphoma (06/06/16) Migraine without status migrainosus, not intractable (06/06/16) Paroxysmal atrial fibrillation (06/06/16) Pure hypercholesterolemia (06/06/16) Shingles Weakness of both lower extremities (08/02/17) Surgical History History of cholecystectomy History of inguinal hernia repair History of lumbar fusion Family History Mother Pancreatic cancer Father Stroke Social History household members: spouse Smoking Status: Never smoker Smoking Status: Never smoker alcohol intake frequency: holidays/special occasions only Substance Use Type: does not use Exam Initial Vital Signs Initial Vital Signs: Vital Signs Temperature 97.8 F 06/04/21 19:57 Pulse Rate 97 H 06/04/21 19:57 Respiratory Rate 18 06/04/21 19:57 Blood Pressure 110/68 06/04/21 19:57 Pulse Oximetry 100 06/04/21 19:57 GENERAL: Chronically ill 65-year-old male generally weak in no acute distress. HEENT: Head atraumatic,EOMI, pupils reactive, face symmetric, moist mucous membranes CARDIOVASCULAR: Regular rate and rhythm without murmurs, rubs or gallops. RESPIRATORY: Breath sounds equal bilaterally, no wheezes rales or rhonchi. ABDOMEN: Soft, nontender. Normoactive bowel sounds all 4 quadrants. No guarding or rebound. Cholecystectomy scar noted right upper quadrant EXTREMITIES: Normal range of motion, no clubbing. Bilateral lower extremity swelling Neurovascularly intact NEUROLOGICAL: Alert and oriented x4. No cranial nerve deficits SKIN: Warm, dry, no laceration, no petechiae, no rashes or lesions. Course Orders Ordered: ED Orders 06/04/21 21:34 Urinalysis and Microscopic Stat Urine Culture Stat 06/04/21 21:57 Trop I [Troponin I] Stat 06/05/21 00:02 Procalcitonin Stat 06/05/21 00:09 COVID19 -Nasal swab/Pre-Proc Stat Discontinued Medications Sodium Chloride (Normal Saline 0.9%) 1,000 mls @ 100 mls/hr IV CONT ANDREA Last Infusion: 06/05/21 01:34 Dose: 0 mls/hr Documented by: Admin: 06/04/21 20:28 Dose: 100 mls/hr Documented by: BARON Ondansetron HCl (Ondansetron 4 Mg/2 Ml Inj) 4 mg IV NOW ONE Stop: 06/04/21 20:25 Last Admin: 06/04/21 20:29 Dose: 4 mg Documented by: BARON Ondansetron HCl (Ondansetron 4 Mg Odt Prepack) 1 bottle MISC SEEINSTR ONE Stop: 06/05/21 01:13 Vital Signs Vital signs: Vital Signs - 8 hr 06/05/21 00:34 06/05/21 01:00 06/05/21 01:30 Pulse Rate 82 86 83 Respiratory Rate 19 19 Blood Pressure 135/75 Pulse Oximetry 99 100 100 MDM - Abdominal Pain Lab Data Result diagrams: 06/04/21 19:52 06/04/21 19:52 Labs: Lab Results 06/04/21 06/04/21 06/04/21 Range/Units 19:52 19:52 19:52 WBC 7.5 (4.5-11.0) X10^3/uL RBC 4.57 (4.5-5.9) X10^6/uL Hgb 14.2 (13.5-17.5) g/dL Hct 44.2 (41-53) % MCV 96.7 (80-100) fL MCH 31.1 (26-34) PG MCHC 32.1 (30-36) % RDW 15.9 H (11.6-14.8) % Plt Count 239 (150-400) X10^3/uL Neut % (Auto) 56.9 (50-75) % Lymph % (Auto) 36.1 (25-40) % [place] % (Auto) 6.0 (3-14) % Eos % (Auto) 0.3 L (2-4) % Baso % (Auto) 0.7 (0-2) % Neut # (Auto) 4200 (0699-9818) /uL Lymph # (Auto) 2700 (0749-3092) /uL [place] # (Auto) 400 (0-900) /uL Eos # (Auto) 0 (0-450) /uL Baso # (Auto) 100 (0-100) /uL Sodium 136 L (137-145) mmol/L Potassium 3.3 L (3.4-5.1) mmol/L Chloride 102 (98-107) mmol/L Carbon Dioxide 26 (22-32) mmol/L BUN 20 (9-20) mg/dL Creatinine 1.18 (0.66-1.25) mg/dL Estimated GFR > 60.0 (>60) mL/min BUN/Creatinine Ratio 16.9 (6-22) Glucose 97 (80-110) mg/dL Calcium 9.4 (8.4-10.2) mg/dL Total Bilirubin 0.7 (0.2-1.3) mg/dL AST 22 (17-59) IU/L ALT 9 (<50) IU/L Alkaline Phosphatase 124 (38-126) U/L Total Creatine Kinase 78 (55-170) U/L CK-MB (CK-2) TNP CK-MB (CK-2) Rel Index TNP Troponin I 0.092 H (0.01-0.034) ng/mL NT-Pro-B Natriuret Pep (<125) pg/mL Total Protein 6.4 (6.3-8.2) g/dL Albumin 3.4 L (3.5-5.0) g/dL Globulin 3.0 (1.7-4.1) g/dL Albumin/Globulin Ratio 1.1 (1.0-2.8) Lipase 40 (23-300) U/L Procalcitonin (<0.5) ng/mL Urine Color Urine Appearance Urine pH (4.5-8.0) Ur Specific [place] (1.000-1.035) Urine Protein (Negative) Urine Glucose (UA) (Negative) g/dL Urine Ketones (NEGATIVE) Urine Occult Blood (Negative) Urine Nitrate (Negative) Urine Bilirubin (NEGATIVE) Urine Urobilinogen (0.2) E.U./dL Ur Leukocyte Esterase (NEGATIVE) Urine RBC (0-5/HPF) Urine WBC (0-5/HPF) Urine Bacteria (None) Ur Culture Indicated? SARS-CoV-2 (PCR) (Negative) 06/04/21 06/04/21 06/04/21 Range/Units 19:52 21:34 21:57 WBC (4.5-11.0) X10^3/uL RBC (4.5-5.9) X10^6/uL Hgb (13.5-17.5) g/dL Hct (41-53) % MCV (80-100) fL MCH (26-34) PG MCHC (30-36) % RDW (11.6-14.8) % Plt Count (150-400) X10^3/uL Neut % (Auto) (50-75) % Lymph % (Auto) (25-40) % [place] % (Auto) (3-14) % Eos % (Auto) (2-4) % Baso % (Auto) (0-2) % Neut # (Auto) (5020-2171) /uL Lymph # (Auto) (8414-6895) /uL [place] # (Auto) (0-900) /uL Eos # (Auto) (0-450) /uL Baso # (Auto) (0-100) /uL Sodium (137-145) mmol/L Potassium (3.4-5.1) mmol/L Chloride (98-107) mmol/L Carbon Dioxide (22-32) mmol/L BUN (9-20) mg/dL Creatinine (0.66-1.25) mg/dL Estimated GFR (>60) mL/min BUN/Creatinine Ratio (6-22) Glucose (80-110) mg/dL Calcium (8.4-10.2) mg/dL Total Bilirubin (0.2-1.3) mg/dL AST (17-59) IU/L ALT (<50) IU/L Alkaline Phosphatase (38-126) U/L Total Creatine Kinase (55-170) U/L CK-MB (CK-2) CK-MB (CK-2) Rel Index Troponin I 0.072 H (0.01-0.034) ng/mL NT-Pro-B Natriuret Pep 1730 H (<125) pg/mL Total Protein (6.3-8.2) g/dL Albumin (3.5-5.0) g/dL Globulin (1.7-4.1) g/dL Albumin/Globulin Ratio (1.0-2.8) Lipase (23-300) U/L Procalcitonin (<0.5) ng/mL Urine Color Yellow Urine Appearance Slightly cloudy Urine pH 6.0 (4.5-8.0) Ur Specific [place] 1.025 (1.000-1.035) Urine Protein 2+ H (Negative) Urine Glucose (UA) Trace H (Negative) g/dL Urine Ketones Trace H (NEGATIVE) Urine Occult Blood 3+ H (Negative) Urine Nitrate Negative (Negative) Urine Bilirubin Negative (NEGATIVE) Urine Urobilinogen 0.2 (0.2) E.U./dL Ur Leukocyte Esterase 1+ H (NEGATIVE) Urine RBC 30-100/hpf H (0-5/HPF) Urine WBC 30-100/hpf H (0-5/HPF) Urine Bacteria Occasional (0-1) (None) Ur Culture Indicated? Specimen cultured SARS-CoV-2 (PCR) (Negative) 06/04/21 06/05/21 Range/Units 21:57 00:09 WBC (4.5-11.0) X10^3/uL RBC (4.5-5.9) X10^6/uL Hgb (13.5-17.5) g/dL Hct (41-53) % MCV (80-100) fL MCH (26-34) PG MCHC (30-36) % RDW (11.6-14.8) % Plt Count (150-400) X10^3/uL Neut % (Auto) (50-75) % Lymph % (Auto) (25-40) % [place] % (Auto) (3-14) % Eos % (Auto) (2-4) % Baso % (Auto) (0-2) % Neut # (Auto) (5528-1903) /uL Lymph # (Auto) (7921-8370) /uL [place] # (Auto) (0-900) /uL Eos # (Auto) (0-450) /uL Baso # (Auto) (0-100) /uL Sodium (137-145) mmol/L Potassium (3.4-5.1) mmol/L Chloride (98-107) mmol/L Carbon Dioxide (22-32) mmol/L BUN (9-20) mg/dL Creatinine (0.66-1.25) mg/dL Estimated GFR (>60) mL/min BUN/Creatinine Ratio (6-22) Glucose (80-110) mg/dL Calcium (8.4-10.2) mg/dL Total Bilirubin (0.2-1.3) mg/dL AST (17-59) IU/L ALT (<50) IU/L Alkaline Phosphatase (38-126) U/L Total Creatine Kinase (55-170) U/L CK-MB (CK-2) CK-MB (CK-2) Rel Index Troponin I (0.01-0.034) ng/mL NT-Pro-B Natriuret Pep (<125) pg/mL Total Protein (6.3-8.2) g/dL Albumin (3.5-5.0) g/dL Globulin (1.7-4.1) g/dL Albumin/Globulin Ratio (1.0-2.8) Lipase (23-300) U/L Procalcitonin 0.07 (<0.5) ng/mL Urine Color Urine Appearance Urine pH (4.5-8.0) Ur Specific [place] (1.000-1.035) Urine Protein (Negative) Urine Glucose (UA) (Negative) g/dL Urine Ketones (NEGATIVE) Urine Occult Blood (Negative) Urine Nitrate (Negative) Urine Bilirubin (NEGATIVE) Urine Urobilinogen (0.2) E.U./dL Ur Leukocyte Esterase (NEGATIVE) Urine RBC (0-5/HPF) Urine WBC (0-5/HPF) Urine Bacteria (None) Ur Culture Indicated? SARS-CoV-2 (PCR) Negative (Negative) Imaging Data Chest x-ray: Radiologist's Impression: PROCEDURE:? XR CHEST 1V ? INDICATIONS:? sob ? TECHNIQUE:? One view of the chest was acquired.? ? COMPARISON:? [facility], CR, XR CHEST 1V, 05/18/2021, 15:48. ? FINDINGS:? ? Surgical changes and devices:? Left-sided pacer.? Thoracolumbar fusion hardware. ? Lungs and pleura:? Mild patchy bilateral perihilar and basilar airspace opacity.? No pleural effusions or pneumothorax.? ? Mediastinum:? Mediastinal contours appear normal.? Heart size is normal.? ? Bones and chest wall:? No suspicious bony lesions.? Overlying soft tissues appear unremarkable.? ? IMPRESSION:? Mild atypical pneumonia ? ? Dictated by: Ciara Emanuel M.D. on 06/04/2021 at 21:20 ? ? Approved by: Ciara Emanuel M.D. on 06/04/2021 at 21:21 ? ECG Data Interpretation: Sinus rhythm rate 88 GA interval 182 QRS [address] changes similar toprevious EKG MDM Narrative Medical decision making narrative: Patient has multiple chronic ongoing issues. He seems to have ongoing nausea intermittent dizziness without focal deficits. Blood work is overall reassuring no significant signs of dehydration based on BUN and creatinine, in fact his creatinine and is improved from previous today is 1.18 previous 1.49. He has chronic ongoing UTIs he is supposed to be taking Macrobid he previously had issues with Macrobid. He has no leukocytosis or fever. He has no significant abdominal pain. Dizziness is been off and on for number of weeks not currently dizzy he had a prior head CT 3 weeks ago which was negative. At this time he is overall not feeling nauseated with Zofran. He was offered something to drink but does not want to drink. He feels ready able to go home. I have spoken with his who is and able to pick him up. They are trying to get him to Neurology in 4 days to help sort some of this out. However seems the specialist are not communicating with each other. No indication for antibiotics he is given prescription for Zofran and recommended outpatient for Discharge Plan Departure Patient Disposition: Home Clinical Impression: Nausea Instructions: DI for Nausea -- Adult Activity Restrictions/Additional Instructions: *You have been diagnosed with nausea *What to do: At this time blood work is overall reassuring. Heart a blood work was a little elevated but has gone down unlikely to be cause of problems. COVID test is negative. Increase fluids as tolerated recommend booster ensure daily to help get some new trance. You may also try Gatorade or Gatorade like substance. Increase food gradually *Continue to take medications as directed Zofran 4 mg every 6-8 hours as needed for nausea or vomiting *Follow up with your primary care provider in 2-3 days *Return to ER if you should have increasing dizziness, weakness, fever, increasing cough, chest pain, shortness of breath any new, worsening or concerning symptoms Prescriptions: New ondansetron 4 mg tablet,disintegrating 4 mg PO Q6HR PRN (Reason: nausea and vomiting) Qty: 10 RF: 0 No Action atorvastatin 40 MG tablet 40 mg PO HS Qty: 0 RF: 0 aspirin 325 MG tablet,delayed release (DR/EC) 325 mg PO QDAY Qty: 0 RF: 0 Correctol 5 MG tablet 5 mg PO DAILY Qty: 0 RF: 0 levothyroxine [Levoxyl] 150 MCG tablet 150 mcg PO QAM Qty: 0 RF: 0 misoprostol 200 MCG tablet 200 mcg PO DAILY Qty: 0 RF: 0 sotalol [Betapace] 240 MG tablet 120 mg PO BID Qty: 0 RF: 0 valacyclovir 500 MG tablet 500 mg PO QDAY Qty: 0 RF: 0 cholecalciferol (vitamin D3) [Vitamin D3] 1,000 UNIT tablet 1,000 unit PO QDAY Qty: 0 RF: 0 zolpidem [Ambien] 10 MG tablet 10 mg PO HSP PRN (Reason: Insomnia) Qty: 0 RF: 0 cyclobenzaprine 10 MG tablet 10 mg PO TIDP PRN (Reason: Muscle Pain) Qty: 0 RF: 0 allopurinol 300 MG tablet 300 mg PO QDAY Qty: 90 RF: 3 topiramate 50 MG tablet 1 tab PO BID Qty: 180 RF: 3 alfuzosin 10 MG tablet extended release 24 hr 1 tab PO QDAY Qty: 90 RF: 3 bupropion HCl [Wellbutrin SR] 100 mg tablet extended release 12 hr 100 mg PO BID Qty: 180 RF: 3 cefuroxime axetil 500 mg tablet 500 mg PO BID Qty: 14 RF: 0 levetiracetam [Keppra] 500 mg tablet 500 mg PO BID Qty: 60 RF: 0 Referrals: Jerad Mar ARNP [Primary Care Provider] -
[2021-06-04] MEDS: ONDANSETRON 4 MG/2 ML INJ IV (20:29)
[2021-06-04 20:30] VITALS: BP 130/74; PULSE 88; RESP 18; O2SAT 100
[2021-06-04 20:46] LABS: Creatine Kinase 78 U/L (55-170)
[2021-06-04 20:59] LABS: Troponin I 0.092 ng/mL (0.01-0.034)
[2021-06-04 21:29] LABS: NT-proBNP (BNP-Adult 18+) 1730 pg/mL (<125)
[2021-06-04 21:30] VITALS: BP 126/64; PULSE 83; RESP 16; O2SAT 100
[2021-06-04 21:45] LABS: Bilirubin Urine UA NEGATIVE (NEGATIVE); Color Urine UA YELLOW; Glucose Urine UA TRACE g/dL (Negative); Ketones Urine UA TRACE (NEGATIVE); Leukocyte Esterase Urine UA 1+ (NEGATIVE); Nitrite Urine UA NEGATIVE (Negative); Occult Blood Urine UA 3+ (Negative); Protein Urine UA 2+ (Negative); Specific Gravity Urine UA 1.025 (1.000-1.035); Urobilinogen Urine UA 0.2 E.U./dL (0.2)
[2021-06-04 21:49] LABS: Appearance Urine UA Slightly Cloudy
[2021-06-04 21:56] LABS: Bacteria Urine Occasional (0-1); RBC Urine 30-100/HPF (0-5/HPF); WBC Urine 30-100/HPF (0-5/HPF)
[2021-06-04 21:57] LABS: Culture Indicated Urine Specimen Cultured
[2021-06-04 22:25] LABS: Troponin I 0.072 ng/mL (0.01-0.034)
[2021-06-05 00:34] VITALS: PULSE 82; O2SAT 99
[2021-06-05 00:36] LABS: Procalcitonin 0.07 ng/mL (<0.5)
[2021-06-05 00:41] LABS: COVID19 -Nasal RAPID Negative (Negative)
[2021-06-05 01:00] VITALS: PULSE 86; RESP 19; O2SAT 100
[2021-06-05 01:30] VITALS: BP 135/75; PULSE 83; RESP 19; O2SAT 100
== END 2021-06-05 01:53 | disposition home or self-care (01) ==
PROVIDERS: Emergency Provider Emergency Medicine; PCP Nurse Practitioner Family
DX: R10.9 Unspecified abdominal pain (principal); R11.0 Nausea; C81.90 Hodgkin lymphoma, unspecified, unspecified site; Z20.822 Contact with and (suspected) exposure to COVID-19
CPT/HCPCS: 71045; 80053; 81001; 82550; 83690; 83880; 84145; 84484; 85025; 87086; 87635; 93005; 96361; 96374; 99284; C9803; J2405

== ENCOUNTER 2021-06-06 04:45 | Inpatient (IN) | payer OTHER, SELFPAY ==
[2021-03-13 10:45] VITALS: BMI 33.2
[2021-06-06] VITALS (33 sets, daily range): BP systolic 106–156; BP diastolic 65–97; PULSE 82–104; RESP 8–21; TEMP 35.9–36.3; O2SAT 98–100; BMI 28.4
--- NOTE | 2021-06-06 04:59 | DI.RAD.S_ITS ---
PROCEDURE: XR CHEST 1V INDICATIONS: weakness TECHNIQUE: One view of the chest was acquired. COMPARISON: [facility], CT, CT ABDOMEN PELVIS W CON, 05/18/2021, 16:40. [facility], CR, XR CHEST 1V, 06/04/2021, 21:12. [facility], CR, XR CHEST 1V, 05/18/2021, 15:48. FINDINGS: Surgical changes and devices: Left pacemaker with right atrial and right ventricular leads. Lower thoracolumbar spine fixation hardware and vertebroplasty. Lungs and pleura: Lungs appear clear. Low lung volumes. Fibrotic change. No pleural effusions or pneumothorax. Mediastinum: Mediastinal contours appear unchanged. Heart size is normal. Bones and chest wall: No suspicious bony lesions. Overlying soft tissues appear unremarkable. IMPRESSION: No acute airspace opacity identified. Fibrotic change. This report is concordant with the overnight preliminary interpretation. Dictated by: Edmond Li M.D. on 06/06/2021 at 7:14 Approved by: Edmond Li M.D. on 06/06/2021 at 7:17
[2021-06-06 05:15] LABS: Add Manual Diff / Slide Review NO; Basophils Absolute Auto 100 /uL (0-100); Basophils Percent Auto 0.6 % (0-2); Eosinophils Absolute Auto 0 /uL (0-450); Eosinophils Percent Auto 0.1 % (2-4); Hematocrit 43.9 % (41-53); Lymphocytes Absolute Auto 1100 /uL (1100-4500); Lymphocytes Percent Auto 10.9 % (25-40); Mean Corpuscular HGB Conc 31.8 % (30-36); Mean Corpuscular Hemoglobin 30.9 PG (26-34); Mean Corpuscular Volume 97.2 fL (80-100); Monocytes Absolute Auto 600 /uL (0-900); Monocytes Percent Auto 5.6 % (3-14); Neutrophils Absolute Auto 8400 /uL (1500-7000); Neutrophils Percent Auto 82.8 % (50-75); Platelet Count 218 X10^3/uL (150-400); Red Blood Cell Count 4.52 X10^6/uL (4.5-5.9); Red Cell Distribution Width 16.2 % (11.6-14.8); White Blood Cell Count 10.2 X10^3/uL (4.5-11.0)
[2021-06-06] MEDS: SODIUM CHLORIDE 0.9% 1,000 ML 200 ML IV (05:23)
[2021-06-06 05:26] LABS: Alanine Aminotransferase 13 IU/L (<50); Albumin 3.1 g/dL (3.5-5.0); Alkaline Phosphatase 114 U/L (38-126); Aspartate Aminotransferase 25 IU/L (17-59); BUN Creatinine Ratio 13.5 (6-22); Bilirubin Total 0.6 mg/dL (0.2-1.3); Blood Urea Nitrogen 23 mg/dL (9-20); Calcium 9.3 mg/dL (8.4-10.2); Carbon Dioxide 22 mmol/L (22-32); Chloride 101 mmol/L (98-107); Creatine Kinase 163 U/L (55-170); Estimated Glomerular Filt Rate 40.9 mL/min (>60); Glucose 96 mg/dL (80-110); HEMOLYSIS 18 (0-50); Sodium 134 mmol/L (137-145); Total Protein 6.1 g/dL (6.3-8.2)
[2021-06-06 05:35] LABS: Lactate (Lactic Acid) 4.6 mmol/L (0.7-2.1)
[2021-06-06 05:41] LABS: Creatine Kinase MB 3.26 ng/mL (<2.37); Procalcitonin 0.13 ng/mL (<0.5)
[2021-06-06 05:42] LABS: Prolactin 39.8 ng/mL (3.7-17.9)
[2021-06-06 05:45] LABS: Troponin I 0.207 ng/mL (0.01-0.034)
[2021-06-06 06:00] LABS: Bilirubin Urine UA 1+ (NEGATIVE); Glucose Urine UA NEGATIVE (Negative); Ketones Urine UA TRACE (NEGATIVE); Leukocyte Esterase Urine UA 2+ (NEGATIVE); Nitrite Urine UA NEGATIVE (Negative); Occult Blood Urine UA 3+ (Negative); Protein Urine UA 3+ (Negative); Specific Gravity Urine UA 1.025 (1.000-1.035); Urobilinogen Urine UA 0.2 E.U./dL (0.2); pH Urine UA 5.5 (4.5-8.0)
[2021-06-06 06:05] LABS: Appearance Urine UA Cloudy; Color Urine UA BROWN
--- NOTE | 2021-06-06 06:12 | ED_ITS ---
HPI - Seizure <Rossy Lujan, DO - Last Filed: 06/07/21 04:23> General Chief Complaint: Seizure Stated Complaint: Seizure Time Seen by Provider: 06/06/21 04:59 Source: patient Mode of arrival: Ambulatory Limitations: no limitations History of Present Illness HPI Narrative: Patient is a 65-year-old male with history of seizures, non- Hodgkin's lymphoma, coronary artery disease, sick sinus syndrome with pacemaker, multiple back surgeries, frequent UTIs on Macrobid presenting with dizziness and seizure. states that he was doing well today he was seen and evaluated yesterday for nausea given Zofran and discharged home after full workup. They state that Zofran was helping he ate a fish sandwich from [employer] which he tolerated wel. He then not up to use the restroom which he was dizzy, he frequently gets dizzy in the bathroom he had tonic clonic shaking movements like typical seizure activity lasting a few minutes according to . He stopped shaking and EMS arrived he then had another very brief episode of shaking she she says was not typical of his seizures. Blood pressure for EMS was low he was hypotensive. He complains of generalized weakness today. No significant abdominal pain. He has no chest pain. He is tearful and feels like he is a burden. He is supposed to see Neurology in a couple of days. He was previously started on Keppra for seizure like activity 3 weeks ago. Related Data Home Medications Medication Instructions Recorded Confirmed atorvastatin 40 mg tablet 40 mg PO HS #0 tab 06/06/16 06/06/21 bisacodyl 5 mg tablet (Correctol) 5 mg PO DAILY PRN #0 06/06/16 06/06/21 cholecalciferol (vitamin D3) 25 1,000 unit PO QDAY #0 tab 06/06/16 06/06/21 mcg (1,000 unit) tablet (Vitamin D3) levothyroxine 150 mcg tablet 150 mcg PO QAM #0 tab 06/06/16 06/06/21 (Levoxyl) valacyclovir 500 mg tablet 500 mg PO QDAY #0 tab 06/06/16 06/06/21 cyclobenzaprine 10 mg tablet 10 mg PO TIDP PRN #0 02/21/17 06/06/21 divalproex 500 mg tablet,extended 1,000 mg PO DAILY 06/06/21 06/06/21 release 24 hr mecobalamin (vitamin B12) 1,000 1,000 mcg PO DAILY 06/06/21 06/06/21 mcg disintegrating tablet,sublingual Previous Rx's Medication Instructions Recorded allopurinol 300 mg tablet 300 mg PO QDAY #90 tab 12/22/17 ondansetron 4 mg disintegrating 4 mg PO Q6HR PRN #10 tab 06/05/21 tablet Allergies Allergy/AdvReac Type Severity Reaction Status Date / Time oxycodone [From PERCOCET] Allergy Unknown Verified 06/06/21 05:07 Review of Systems <Rossy Lujan DO - Last Filed: 06/07/21 04:23> Review of Systems ROS Unobtainable: All systems reviewed & are unremarkable except as noted in HPI and below Constitutional Constitutional: Reports body ache(s), Denies chills, Reports fatigue, Reports lethargy, Reports malaise and Reports poor appetite ENT Ears, Nose, Mouth, and Throat: Denies vertigo and Reports dizziness Respiratory Respiratory: Denies chest congestion and Denies cough Gastrointestinal Gastrointestinal: Denies abdominal pain, Reports nausea and Denies vomiting Genitourinary Genitourinary: Reports as per HPI Musculoskeletal Musculoskeletal: Reports back pain and Denies myalgias Integumentary/Breasts Skin/Breast: Denies rash Neurologic Neurologic: Denies vertigo and Reports dizziness Endocrine Endocrine: Reports fatigue Patient History <Rossy Lujan DO - Last Filed: 06/07/21 04:23> Medical History Acquired hypothyroidism (06/06/16) Depression Essential hypertension (06/06/16) Hematuria History of lymphoma (06/06/16) Migraine without status migrainosus, not intractable (06/06/16) Paroxysmal atrial fibrillation (06/06/16) Pure hypercholesterolemia (06/06/16) Shingles Weakness of both lower extremities (08/02/17) Surgical History History of cholecystectomy History of inguinal hernia repair History of lumbar fusion Family History Mother Pancreatic cancer Father Stroke Social History household members: spouse Smoking Status: Never smoker Smoking Status: Never smoker alcohol intake frequency: holidays/special occasions only Substance Use Type: does not use Exam <Rossy Lujan DO - Last Filed: 06/07/21 04:23> Initial Vital Signs Initial Vital Signs: Vital Signs Pulse Rate 99 H 06/06/21 05:05 Respiratory Rate 19 06/06/21 05:05 Pulse Oximetry 100 06/06/21 05:05 GENERAL: Chronically ill 65-year-old male HEENT: Head atraumatic,EOMI, pupils reactive, face symmetric, moist mucous membranes CARDIOVASCULAR: Regular rate and rhythm without murmurs, rubs or gallops. RESPIRATORY: Breath sounds equal bilaterally, no wheezes rales or rhonchi. ABDOMEN: Soft, nontender. Normoactive bowel sounds all 4 quadrants. No guarding or rebound. EXTREMITIES: Normal range of motion, no clubbing or edema. Neurovascularly intact NEUROLOGICAL: Alert and oriented [employer] pumping [employer] helper strength equal bilaterally moving all extremities SKIN: Warm, dry, no laceration, no petechiae, no rashes or lesions. <Silvano Cárdenas DO - Last Filed: 06/06/21 17:49> Initial Vital Signs Initial Vital Signs: Vital Signs Pulse Rate 99 H 06/06/21 05:05 Respiratory Rate 06/06/21 05:05 Pulse Oximetry 100 06/06/21 05:05 Course <Rossy Lujan DO - Last Filed: 06/07/21 04:23> Orders Ordered: Acetaminophen (Acetaminophen 325 Mg Tablet) 650 mg PO Q6HR PRN PRN Reason: Fever/Mild Pain (1-3) Last Admin: 06/06/21 18:03 Dose: 650 mg Documented by: ELICIA Aspirin (Aspirin Ec 81 Mg Tablet) 81 mg PO DAILY ANDREA Atorvastatin Calcium (Atorvastatin 20 Mg Tablet) 80 mg PO BEDTIME ANDREA Last Admin: 06/06/21 20:45 Dose: 80 mg Documented by: ELICIA Heparin Sodium/Dextrose (Heparin Drip) 25,000 unit in 500 mls @ 20 mls/hr IV CONT ANDREA; Protocol Last Titration: 06/06/21 18:23 Dose: 950 units/hr, 19 mls/hr Documented by: Titration: 06/06/21 17:56 Dose: 1,000 units/hr, 20 mls/hr Documented by: Titration: 06/06/21 16:22 Dose: 0 units/hr, 0 mls/hr Documented by: Titration: 06/06/21 13:51 Dose: 1,000 units/hr, 20 mls/hr Documented by: Titration: 06/06/21 09:05 Dose: 0 units/hr, 0 mls/hr Documented by: Admin: 06/06/21 08:01 Dose: 1,000 units/hr, 20 mls/hr Documented by: PJ Lactated Ringer's (Lactated Ringers) 1,000 mls @ 100 mls/hr IV CONT [facility] Last Infusion: 06/07/21 03:13 Dose: 0 mls/hr Documented by: Admin: 06/06/21 23:20 Dose: 100 mls/hr Documented by: Infusion: 06/06/21 23:20 Dose: 100 mls/hr Documented by: Admin: 06/06/21 19:28 Dose: 100 mls/hr Documented by: ELICIA Sodium Chloride (Normal Saline 0.9%) 250 mls @ 21 mls/hr IV Q24H PRN PRN Reason: Flush Last Admin: 06/06/21 19:25 Dose: 21 mls/hr Documented by: ELICIA Piperacillin Sod/Tazobactam (Sod 3.375 gm/ Sodium Chloride) 100 mls @ 25 mls/hr IV Q8H [facility] Last Admin: 06/07/21 03:07 Dose: 25 mls/hr Documented by: Admin: 06/06/21 20:29 Dose: Not Given Documented by: ELICIA Levetiracetam (Levetiracetam 250 Mg Tablet) 1,000 mg PO BID [facility] Last Admin: 06/06/21 20:44 Dose: 1,000 mg Documented by: ELICIA Levothyroxine Sodium (Levothyroxine 150 Mcg Tablet) 150 mcg PO QACBREAK [facility] Naloxone HCl (Naloxone 0.4 Mg/Ml Vial) 0.2 mg IV Q2MIN PRN PRN Reason: Opiate Reversal Nitroglycerin (Nitroglycerin 0.4 Mg Sl Tab) 0.4 mg SL [id number] PRN PRN Reason: Chest Pain Ondansetron HCl (Ondansetron 4 Mg/2 Ml Inj) 4 mg IV Q8HR PRN PRN Reason: Nausea And Vomiting Discontinued Medications Aspirin (Aspirin 81 Mg Chew Tab) 324 mg PO NOW ONE Stop: 06/06/21 07:53 Last Admin: 06/06/21 08:00 Dose: 324 mg Documented by: PJ Divalproex Sodium (Divalproex Er 250 Mg Tab) 1,000 mg PO NOW ONE Stop: 06/06/21 13:57 Last Admin: 06/06/21 21:16 Dose: Not Given Documented by: SAMANTHA Heparin Sodium (Porcine) (Heparin 5,000 Unit/Ml Vial) 5,000 unit IV NOW ONE Stop: 06/06/21 07:53 Last Admin: 06/06/21 08:01 Dose: 5,000 unit Documented by: PJ Sodium Chloride (Normal Saline 0.9%) 1,000 mls @ 200 mls/hr IV CONT ANDREA Last Infusion: 06/06/21 14:18 Dose: 0 mls/hr Documented by: Admin: 06/06/21 05:23 Dose: 200 mls/hr Documented by: MAIRA Piperacillin Sod/Tazobactam (Sod 4.5 gm/ Sodium Chloride) 100 mls @ 200 mls/hr IV NOW ONE Stop: 06/06/21 06:47 Last Infusion: 06/06/21 09:20 Dose: 0 mls/hr Documented by: Admin: 06/06/21 07:05 Dose: 200 mls/hr Documented by: MURIEL Sodium Chloride (Normal Saline 0.9%) 1,000 mls @ 1,000 mls/hr IV BOLUS ONE Stop: 06/06/21 07:45 Last Infusion: 06/06/21 09:15 Dose: 0 mls/hr Documented by: Admin: 06/06/21 07:05 Dose: 1,000 mls/hr Documented by: MURIEL POTASSIUM CHLORIDE IN WATER (Potassium Cl 10 Meq/100 Ml Shayla) 10 meq in 100 mls @ 100 mls/hr IV Q1H ANDREA Stop: 06/06/21 15:59 Last Infusion: 06/06/21 18:58 Dose: 100 mls/hr Documented by: Admin: 06/06/21 17:07 Dose: 100 mls/hr Documented by: Infusion: 06/06/21 16:22 Dose: 0 mls/hr Documented by: Admin: 06/06/21 14:19 Dose: 100 mls/hr Documented by: ELINOR Sodium Chloride (Normal Saline 0.9%) 1,000 mls @ 125 mls/hr IV BOLUS ONE Stop: 06/06/21 22:00 Last Infusion: 06/06/21 16:22 Dose: 0 mls/hr Documented by: Admin: 06/06/21 14:18 Dose: 125 mls/hr Documented by: ELINOR Levetiracetam 1,000 mg/ Sodium (Chloride) 110 mls @ 440 mls/hr IV NOW ONE Stop: 06/06/21 15:07 Last Infusion: 06/06/21 15:51 Dose: 0 mls/hr Documented by: Admin: 06/06/21 15:21 Dose: 440 mls/hr Documented by: PJ Piperacillin Sod/Tazobactam (Sod 3.375 gm/ Sodium Chloride) 100 mls @ 25 mls/hr IV Q8H ANDREA Last Admin: 06/06/21 19:16 Dose: 25 mls/hr Documented by: ELICIA Nitroglycerin (Nitroglycerin 0.4 Mg Sl Tab) 0.4 mg SL [id number] PRN PRN Reason: Chest Pain Last Admin: 06/06/21 15:08 Dose: 0.4 mg Documented by: PJ Potassium Chloride (Potassium Chloride 20 Meq Tab) 20 meq PO NOW ONE Stop: 06/06/21 18:56 Last Admin: 06/06/21 19:16 Dose: 20 meq Documented by: ELICIA Vital Signs Vital signs: Vital Signs - 8 hr 06/06/21 10:00 06/06/21 10:30 06/06/21 11:00 Pulse Rate 94 H 91 H 91 H Respiratory Rate 17 17 17 Blood Pressure 156/95 H 138/91 H 142/89 H Pulse Oximetry 100 100 100 06/06/21 11:30 06/06/21 12:00 06/06/21 12:30 Pulse Rate 92 H 91 H 87 Respiratory Rate 17 18 16 Blood Pressure 150/97 H 148/91 H 154/88 H Pulse Oximetry 100 100 100 06/06/21 13:00 06/06/21 13:30 06/06/21 14:00 Pulse Rate 85 89 88 Respiratory Rate 14 16 17 Blood Pressure 138/83 148/89 H 139/91 H Pulse Oximetry 100 100 100 06/06/21 14:30 06/06/21 15:00 06/06/21 15:08 Pulse Rate 93 H 89 84 Respiratory Rate 17 20 Blood Pressure 120/70 116/82 121/76 Pulse Oximetry 100 100 06/06/21 15:09 06/06/21 15:28 06/06/21 15:30 Pulse Rate 84 96 H 92 H Respiratory Rate 17 12 8 L Blood Pressure 121/76 128/87 133/84 Pulse Oximetry 100 98 98 <Silvano Cárdenas, DO - Last Filed: 06/06/21 17:49> Orders Ordered: Acetaminophen (Acetaminophen 325 Mg Tablet) 650 mg PO Q6HR PRN PRN Reason: Fever/Mild Pain (1-3) Last Admin: 06/06/21 18:03 Dose: 650 mg Documented by: ELICIA Aspirin (Aspirin Ec 81 Mg Tablet) 81 mg PO DAILY ANDREA Atorvastatin Calcium (Atorvastatin 20 Mg Tablet) 80 mg PO BEDTIME ANDREA Last Admin: 06/06/21 20:45 Dose: 80 mg Documented by: ELICIA Heparin Sodium/Dextrose (Heparin Drip) 25,000 unit in 500 mls @ 20 mls/hr IV CONT ANDREA; Protocol Last Titration: 06/06/21 18:23 Dose: 950 units/hr, 19 mls/hr Documented by: Titration: 06/06/21 17:56 Dose: 1,000 units/hr, 20 mls/hr Documented by: Titration: 06/06/21 16:22 Dose: 0 units/hr, 0 mls/hr Documented by: Titration: 06/06/21 13:51 Dose: 1,000 units/hr, 20 mls/hr Documented by: Titration: 06/06/21 09:05 Dose: 0 units/hr, 0 mls/hr Documented by: Admin: 06/06/21 08:01 Dose: 1,000 units/hr, 20 mls/hr Documented by: PJ Lactated Ringer's (Lactated Ringers) 1,000 mls @ 100 mls/hr IV CONT [facility] Last Infusion: 06/07/21 03:13 Dose: 0 mls/hr Documented by: Admin: 06/06/21 23:20 Dose: 100 mls/hr Documented by: Infusion: 06/06/21 23:20 Dose: 100 mls/hr Documented by: Admin: 06/06/21 19:28 Dose: 100 mls/hr Documented by: ELICIA Sodium Chloride (Normal Saline 0.9%) 250 mls @ 21 mls/hr IV Q24H PRN PRN Reason: Flush Last Admin: 06/06/21 19:25 Dose: 21 mls/hr Documented by: ELICIA Piperacillin Sod/Tazobactam (Sod 3.375 gm/ Sodium Chloride) 100 mls @ 25 mls/hr IV Q8H [facility] Last Admin: 06/07/21 03:07 Dose: 25 mls/hr Documented by: Admin: 06/06/21 20:29 Dose: Not Given Documented by: ELICIA Levetiracetam (Levetiracetam 250 Mg Tablet) 1,000 mg PO BID [facility] Last Admin: 06/06/21 20:44 Dose: 1,000 mg Documented by: ELICIA Levothyroxine Sodium (Levothyroxine 150 Mcg Tablet) 150 mcg PO QACBREAK [facility] Naloxone HCl (Naloxone 0.4 Mg/Ml Vial) 0.2 mg IV Q2MIN PRN PRN Reason: Opiate Reversal Nitroglycerin (Nitroglycerin 0.4 Mg Sl Tab) 0.4 mg SL [id number] PRN PRN Reason: Chest Pain Ondansetron HCl (Ondansetron 4 Mg/2 Ml Inj) 4 mg IV Q8HR PRN PRN Reason: Nausea And Vomiting Discontinued Medications Aspirin (Aspirin 81 Mg Chew Tab) 324 mg PO NOW ONE Stop: 06/06/21 07:53 Last Admin: 06/06/21 08:00 Dose: 324 mg Documented by: PJ Divalproex Sodium (Divalproex Er 250 Mg Tab) 1,000 mg PO NOW ONE Stop: 06/06/21 13:57 Last Admin: 06/06/21 21:16 Dose: Not Given Documented by: SAMANTHA Heparin Sodium (Porcine) (Heparin 5,000 Unit/Ml Vial) 5,000 unit IV NOW ONE Stop: 06/06/21 07:53 Last Admin: 06/06/21 08:01 Dose: 5,000 unit Documented by: PJ Sodium Chloride (Normal Saline 0.9%) 1,000 mls @ 200 mls/hr IV CONT ANDREA Last Infusion: 06/06/21 14:18 Dose: 0 mls/hr Documented by: Admin: 06/06/21 05:23 Dose: 200 mls/hr Documented by: MAIRA Piperacillin Sod/Tazobactam (Sod 4.5 gm/ Sodium Chloride) 100 mls @ 200 mls/hr IV NOW ONE Stop: 06/06/21 06:47 Last Infusion: 06/06/21 09:20 Dose: 0 mls/hr Documented by: Admin: 06/06/21 07:05 Dose: 200 mls/hr Documented by: MURIEL Sodium Chloride (Normal Saline 0.9%) 1,000 mls @ 1,000 mls/hr IV BOLUS ONE Stop: 06/06/21 07:45 Last Infusion: 06/06/21 09:15 Dose: 0 mls/hr Documented by: Admin: 06/06/21 07:05 Dose: 1,000 mls/hr Documented by: MURIEL POTASSIUM CHLORIDE IN WATER (Potassium Cl 10 Meq/100 Ml Shayla) 10 meq in 100 mls @ 100 mls/hr IV Q1H ANDREA Stop: 06/06/21 15:59 Last Infusion: 06/06/21 18:58 Dose: 100 mls/hr Documented by: Admin: 06/06/21 17:07 Dose: 100 mls/hr Documented by: Infusion: 06/06/21 16:22 Dose: 0 mls/hr Documented by: Admin: 06/06/21 14:19 Dose: 100 mls/hr Documented by: ELINOR Sodium Chloride (Normal Saline 0.9%) 1,000 mls @ 125 mls/hr IV BOLUS ONE Stop: 06/06/21 22:00 Last Infusion: 06/06/21 16:22 Dose: 0 mls/hr Documented by: Admin: 06/06/21 14:18 Dose: 125 mls/hr Documented by: ELINOR Levetiracetam 1,000 mg/ Sodium (Chloride) 110 mls @ 440 mls/hr IV NOW ONE Stop: 06/06/21 15:07 Last Infusion: 06/06/21 15:51 Dose: 0 mls/hr Documented by: Admin: 06/06/21 15:21 Dose: 440 mls/hr Documented by: PJ Piperacillin Sod/Tazobactam (Sod 3.375 gm/ Sodium Chloride) 100 mls @ 25 mls/hr IV Q8H ANDREA Last Admin: 06/06/21 19:16 Dose: 25 mls/hr Documented by: ELICIA Nitroglycerin (Nitroglycerin 0.4 Mg Sl Tab) 0.4 mg SL [id number] PRN PRN Reason: Chest Pain Last Admin: 06/06/21 15:08 Dose: 0.4 mg Documented by: PJ Potassium Chloride (Potassium Chloride 20 Meq Tab) 20 meq PO NOW ONE Stop: 06/06/21 18:56 Last Admin: 06/06/21 19:16 Dose: 20 meq Documented by: ELICIA Vital Signs Vital signs: Vital Signs - 8 hr 06/06/21 10:00 06/06/21 10:30 06/06/21 11:00 Pulse Rate 94 H 91 H 91 H Respiratory Rate 17 17 17 Blood Pressure 156/95 H 138/91 H 142/89 H Pulse Oximetry 100 100 100 06/06/21 11:30 06/06/21 12:00 06/06/21 12:30 Pulse Rate 92 H 91 H 87 Respiratory Rate 17 18 16 Blood Pressure 150/97 H 148/91 H 154/88 H Pulse Oximetry 100 100 100 06/06/21 13:00 06/06/21 13:30 06/06/21 14:00 Pulse Rate 85 89 88 Respiratory Rate 14 16 17 Blood Pressure 138/83 148/89 H 139/91 H Pulse Oximetry 100 100 100 06/06/21 14:30 06/06/21 15:00 06/06/21 15:08 Pulse Rate 93 H 89 84 Respiratory Rate 17 20 Blood Pressure 120/70 116/82 121/76 Pulse Oximetry 100 100 06/06/21 15:09 06/06/21 15:28 06/06/21 15:30 Pulse Rate 84 96 H 92 H Respiratory Rate 17 12 8 L Blood Pressure 121/76 128/87 133/84 Pulse Oximetry 100 98 98 MDM - Seizure <Rossy Lujan, DO - Last Filed: 06/07/21 04:23> Lab Data Result diagrams: 06/06/21 05:00 06/06/21 13:25 Labs: Lab Results 06/06/21 06/06/21 06/06/21 Range/Units 04:50 05:00 05:00 WBC 10.2 (4.5-11.0) X10^3/uL RBC 4.52 (4.5-5.9) X10^6/uL Hgb 14.0 (13.5-17.5) g/dL Hct 43.9 (41-53) % MCV 97.2 (80-100) fL MCH 30.9 (26-34) PG MCHC 31.8 (30-36) % RDW 16.2 H (11.6-14.8) % Plt Count 218 (150-400) X10^3/uL Neut % (Auto) 82.8 H D (50-75) % Lymph % (Auto) 10.9 L D (25-40) % Maury % (Auto) 5.6 (3-14) % Eos % (Auto) 0.1 L (2-4) % Baso % (Auto) 0.6 (0-2) % Neut # (Auto) 8400 H (2692-3963) /uL Lymph # (Auto) 1100 (1607-9621) /uL Maury # (Auto) 600 (0-900) /uL Eos # (Auto) 0 (0-450) /uL Baso # (Auto) 100 (0-100) /uL PT (10.1-12.7) SECONDS INR (0.9-1.3) APTT (26.4-36.2) SECONDS Sodium (137-145) mmol/L Potassium (3.4-5.1) mmol/L Chloride (98-107) mmol/L Carbon Dioxide (22-32) mmol/L BUN (9-20) mg/dL Creatinine (0.66-1.25) mg/dL Estimated GFR (>60) mL/min BUN/Creatinine Ratio (6-22) Glucose (80-110) mg/dL Lactate (0.7-2.1) mmol/L Calcium (8.4-10.2) mg/dL Total Bilirubin (0.2-1.3) mg/dL AST (17-59) IU/L ALT (<50) IU/L Alkaline Phosphatase (38-126) U/L Total Creatine Kinase (55-170) U/L CK-MB (CK-2) (<2.37) ng/mL CK-MB (CK-2) Rel Index (1.5-5.0) % Troponin I (0.01-0.034) ng/mL NT-Pro-B Natriuret Pep (<125) pg/mL Total Protein (6.3-8.2) g/dL Albumin (3.5-5.0) g/dL Globulin (1.7-4.1) g/dL Albumin/Globulin Ratio (1.0-2.8) Procalcitonin (<0.5) ng/mL TSH (0.47-4.68) uIU/mL Prolactin 39.8 H (3.7-17.9) ng/mL Urine Color Urine Appearance Urine pH (4.5-8.0) Ur Specific [place] (1.000-1.035) Urine Protein (Negative) Urine Glucose (UA) (Negative) g/dL Urine Ketones (NEGATIVE) Urine Occult Blood (Negative) Urine Nitrate (Negative) Urine Bilirubin (NEGATIVE) Ur Bilirubin Confirm (Negative) Urine Urobilinogen (0.2) E.U./dL Ur Leukocyte Esterase (NEGATIVE) Urine RBC (0-5/HPF) Urine WBC (0-5/HPF) Ur Squamous Epith Cells (0-5/HPF) Urine Bacteria (None) Ur Culture Indicated? Micro UA Comment SARS-CoV-2 (PCR) Negative (Negative) 06/06/21 06/06/21 06/06/21 Range/Units 05:00 05:00 05:05 WBC (4.5-11.0) X10^3/uL RBC (4.5-5.9) X10^6/uL Hgb (13.5-17.5) g/dL Hct (41-53) % MCV (80-100) fL MCH (26-34) PG MCHC (30-36) % RDW (11.6-14.8) % Plt Count (150-400) X10^3/uL Neut % (Auto) (50-75) % Lymph % (Auto) (25-40) % Maury % (Auto) (3-14) % Eos % (Auto) (2-4) % Baso % (Auto) (0-2) % Neut # (Auto) (9935-4567) /uL Lymph # (Auto) (4028-9809) /uL Maury # (Auto) (0-900) /uL Eos # (Auto) (0-450) /uL Baso # (Auto) (0-100) /uL PT (10.1-12.7) SECONDS INR (0.9-1.3) APTT (26.4-36.2) SECONDS Sodium 134 L (137-145) mmol/L Potassium 3.0 L (3.4-5.1) mmol/L Chloride 101 (98-107) mmol/L Carbon Dioxide 22 (22-32) mmol/L BUN 23 H (9-20) mg/dL Creatinine 1.70 H (0.66-1.25) mg/dL Estimated GFR 40.9 L (>60) mL/min BUN/Creatinine Ratio 13.5 (6-22) Glucose 96 (80-110) mg/dL Lactate 4.6 H* (0.7-2.1) mmol/L Calcium 9.3 (8.4-10.2) mg/dL Total Bilirubin 0.6 (0.2-1.3) mg/dL AST 25 (17-59) IU/L ALT 13 (<50) IU/L Alkaline Phosphatase 114 (38-126) U/L Total Creatine Kinase 163 (55-170) U/L CK-MB (CK-2) 3.26 H (<2.37) ng/mL CK-MB (CK-2) Rel Index 2.0 (1.5-5.0) % Troponin I 0.207 H* (0.01-0.034) ng/mL NT-Pro-B Natriuret Pep (<125) pg/mL Total Protein 6.1 L (6.3-8.2) g/dL Albumin 3.1 L (3.5-5.0) g/dL Globulin 3.0 (1.7-4.1) g/dL Albumin/Globulin Ratio 1.0 (1.0-2.8) Procalcitonin 0.13 (<0.5) ng/mL TSH (0.47-4.68) uIU/mL Prolactin (3.7-17.9) ng/mL Urine Color Brown Urine Appearance Cloudy Urine pH 5.5 (4.5-8.0) Ur Specific [place] 1.025 (1.000-1.035) Urine Protein 3+ H (Negative) Urine Glucose (UA) Negative (Negative) g/dL Urine Ketones Trace H (NEGATIVE) Urine Occult Blood 3+ H (Negative) Urine Nitrate Negative (Negative) Urine Bilirubin 1+ H (NEGATIVE) Ur Bilirubin Confirm Negative (Negative) Urine Urobilinogen 0.2 (0.2) E.U./dL Ur Leukocyte Esterase 2+ H (NEGATIVE) Urine RBC >100/hpf H (0-5/HPF) Urine WBC >100/hpf H (0-5/HPF) Ur Squamous Epith Cells 1-5 /hpf (0-5/HPF) Urine Bacteria Many (>30) H (None) Ur Culture Indicated? Specimen cultured Micro UA Comment * SARS-CoV-2 (PCR) (Negative) 06/06/21 06/06/21 06/06/21 Range/Units 07:20 07:20 08:12 WBC (4.5-11.0) X10^3/uL RBC (4.5-5.9) X10^6/uL Hgb (13.5-17.5) g/dL Hct (41-53) % MCV (80-100) fL MCH (26-34) PG MCHC (30-36) % RDW (11.6-14.8) % Plt Count (150-400) X10^3/uL Neut % (Auto) (50-75) % Lymph % (Auto) (25-40) % Maury % (Auto) (3-14) % Eos % (Auto) (2-4) % Baso % (Auto) (0-2) % Neut # (Auto) (1465-5792) /uL Lymph # (Auto) (8994-7415) /uL Maury # (Auto) (0-900) /uL Eos # (Auto) (0-450) /uL Baso # (Auto) (0-100) /uL PT (10.1-12.7) SECONDS INR (0.9-1.3) APTT > 400 H* D (26.4-36.2) SECONDS Sodium (137-145) mmol/L Potassium (3.4-5.1) mmol/L Chloride (98-107) mmol/L Carbon Dioxide (22-32) mmol/L BUN (9-20) mg/dL Creatinine (0.66-1.25) mg/dL Estimated GFR (>60) mL/min BUN/Creatinine Ratio (6-22) Glucose (80-110) mg/dL Lactate 1.9 (0.7-2.1) mmol/L Calcium (8.4-10.2) mg/dL Total Bilirubin (0.2-1.3) mg/dL AST (17-59) IU/L ALT (<50) IU/L Alkaline Phosphatase (38-126) U/L Total Creatine Kinase (55-170) U/L CK-MB (CK-2) (<2.37) ng/mL CK-MB (CK-2) Rel Index (1.5-5.0) % Troponin I 0.242 H* (0.01-0.034) ng/mL NT-Pro-B Natriuret Pep (<125) pg/mL Total Protein (6.3-8.2) g/dL Albumin (3.5-5.0) g/dL Globulin (1.7-4.1) g/dL Albumin/Globulin Ratio (1.0-2.8) Procalcitonin (<0.5) ng/mL TSH (0.47-4.68) uIU/mL Prolactin (3.7-17.9) ng/mL Urine Color Urine Appearance Urine pH (4.5-8.0) Ur Specific [place] (1.000-1.035) Urine Protein (Negative) Urine Glucose (UA) (Negative) g/dL Urine Ketones (NEGATIVE) Urine Occult Blood (Negative) Urine Nitrate (Negative) Urine Bilirubin (NEGATIVE) Ur Bilirubin Confirm (Negative) Urine Urobilinogen (0.2) E.U./dL Ur Leukocyte Esterase (NEGATIVE) Urine RBC (0-5/HPF) Urine WBC (0-5/HPF) Ur Squamous Epith Cells (0-5/HPF) Urine Bacteria (None) Ur Culture Indicated? Micro UA Comment SARS-CoV-2 (PCR) (Negative) 06/06/21 06/06/21 06/06/21 Range/Units 08:12 09:32 13:25 WBC (4.5-11.0) X10^3/uL RBC (4.5-5.9) X10^6/uL Hgb (13.5-17.5) g/dL Hct (41-53) % MCV (80-100) fL MCH (26-34) PG MCHC (30-36) % RDW (11.6-14.8) % Plt Count (150-400) X10^3/uL Neut % (Auto) (50-75) % Lymph % (Auto) (25-40) % Maury % (Auto) (3-14) % Eos % (Auto) (2-4) % Baso % (Auto) (0-2) % Neut # (Auto) (8400-6319) /uL Lymph # (Auto) (7836-9544) /uL Maury # (Auto) (0-900) /uL Eos # (Auto) (0-450) /uL Baso # (Auto) (0-100) /uL PT 13.3 H (10.1-12.7) SECONDS INR 1.2 (0.9-1.3) APTT > 400 H* 31 D (26.4-36.2) SECONDS Sodium (137-145) mmol/L Potassium (3.4-5.1) mmol/L Chloride (98-107) mmol/L Carbon Dioxide (22-32) mmol/L BUN (9-20) mg/dL Creatinine (0.66-1.25) mg/dL Estimated GFR (>60) mL/min BUN/Creatinine Ratio (6-22) Glucose (80-110) mg/dL Lactate (0.7-2.1) mmol/L Calcium (8.4-10.2) mg/dL Total Bilirubin (0.2-1.3) mg/dL AST (17-59) IU/L ALT (<50) IU/L Alkaline Phosphatase (38-126) U/L Total Creatine Kinase (55-170) U/L CK-MB (CK-2) (<2.37) ng/mL CK-MB (CK-2) Rel Index (1.5-5.0) % Troponin I (0.01-0.034) ng/mL NT-Pro-B Natriuret Pep (<125) pg/mL Total Protein (6.3-8.2) g/dL Albumin (3.5-5.0) g/dL Globulin (1.7-4.1) g/dL Albumin/Globulin Ratio (1.0-2.8) Procalcitonin (<0.5) ng/mL TSH (0.47-4.68) uIU/mL Prolactin (3.7-17.9) ng/mL Urine Color Urine Appearance Urine pH (4.5-8.0) Ur Specific [place] (1.000-1.035) Urine Protein (Negative) Urine Glucose (UA) (Negative) g/dL Urine Ketones (NEGATIVE) Urine Occult Blood (Negative) Urine Nitrate (Negative) Urine Bilirubin (NEGATIVE) Ur Bilirubin Confirm (Negative) Urine Urobilinogen (0.2) E.U./dL Ur Leukocyte Esterase (NEGATIVE) Urine RBC (0-5/HPF) Urine WBC (0-5/HPF) Ur Squamous Epith Cells (0-5/HPF) Urine Bacteria (None) Ur Culture Indicated? Micro UA Comment SARS-CoV-2 (PCR) (Negative) 06/06/21 06/06/21 06/06/21 Range/Units 13:25 13:25 13:25 WBC (4.5-11.0) X10^3/uL RBC (4.5-5.9) X10^6/uL Hgb (13.5-17.5) g/dL Hct (41-53) % MCV (80-100) fL MCH (26-34) PG MCHC (30-36) % RDW (11.6-14.8) % Plt Count (150-400) X10^3/uL Neut % (Auto) (50-75) % Lymph % (Auto) (25-40) % Maury % (Auto) (3-14) % Eos % (Auto) (2-4) % Baso % (Auto) (0-2) % Neut # (Auto) (6585-9289) /uL Lymph # (Auto) (9692-3042) /uL Maury # (Auto) (0-900) /uL Eos # (Auto) (0-450) /uL Baso # (Auto) (0-100) /uL PT (10.1-12.7) SECONDS INR (0.9-1.3) APTT (26.4-36.2) SECONDS Sodium 135 L (137-145) mmol/L Potassium 3.2 L (3.4-5.1) mmol/L Chloride 108 H (98-107) mmol/L Carbon Dioxide 21 L (22-32) mmol/L BUN 24 H (9-20) mg/dL Creatinine 1.51 H (0.66-1.25) mg/dL Estimated GFR 46.9 L (>60) mL/min BUN/Creatinine Ratio 15.9 (6-22) Glucose 79 L (80-110) mg/dL Lactate (0.7-2.1) mmol/L Calcium 8.9 (8.4-10.2) mg/dL Total Bilirubin (0.2-1.3) mg/dL AST (17-59) IU/L ALT (<50) IU/L Alkaline Phosphatase (38-126) U/L Total Creatine Kinase 147 (55-170) U/L CK-MB (CK-2) 4.07 H (<2.37) ng/mL CK-MB (CK-2) Rel Index 2.8 (1.5-5.0) % Troponin I 0.441 H* (0.01-0.034) ng/mL NT-Pro-B Natriuret Pep 2980 H (<125) pg/mL Total Protein (6.3-8.2) g/dL Albumin (3.5-5.0) g/dL Globulin (1.7-4.1) g/dL Albumin/Globulin Ratio (1.0-2.8) Procalcitonin (<0.5) ng/mL TSH (0.47-4.68) uIU/mL Prolactin (3.7-17.9) ng/mL Urine Color Urine Appearance Urine pH (4.5-8.0) Ur Specific [place] (1.000-1.035) Urine Protein (Negative) Urine Glucose (UA) (Negative) g/dL Urine Ketones (NEGATIVE) Urine Occult Blood (Negative) Urine Nitrate (Negative) Urine Bilirubin (NEGATIVE) Ur Bilirubin Confirm (Negative) Urine Urobilinogen (0.2) E.U./dL Ur Leukocyte Esterase (NEGATIVE) Urine RBC (0-5/HPF) Urine WBC (0-5/HPF) Ur Squamous Epith Cells (0-5/HPF) Urine Bacteria (None) Ur Culture Indicated? Micro UA Comment SARS-CoV-2 (PCR) (Negative) 06/06/21 Range/Units 13:25 WBC (4.5-11.0) X10^3/uL RBC (4.5-5.9) X10^6/uL Hgb (13.5-17.5) g/dL Hct (41-53) % MCV (80-100) fL MCH (26-34) PG MCHC (30-36) % RDW (11.6-14.8) % Plt Count (150-400) X10^3/uL Neut % (Auto) (50-75) % Lymph % (Auto) (25-40) % Maury % (Auto) (3-14) % Eos % (Auto) (2-4) % Baso % (Auto) (0-2) % Neut # (Auto) (7890-4948) /uL Lymph # (Auto) (2471-7231) /uL Maury # (Auto) (0-900) /uL Eos # (Auto) (0-450) /uL Baso # (Auto) (0-100) /uL PT (10.1-12.7) SECONDS INR (0.9-1.3) APTT (26.4-36.2) SECONDS Sodium (137-145) mmol/L Potassium (3.4-5.1) mmol/L Chloride (98-107) mmol/L Carbon Dioxide (22-32) mmol/L BUN (9-20) mg/dL Creatinine (0.66-1.25) mg/dL Estimated GFR (>60) mL/min BUN/Creatinine Ratio (6-22) Glucose (80-110) mg/dL Lactate (0.7-2.1) mmol/L Calcium (8.4-10.2) mg/dL Total Bilirubin (0.2-1.3) mg/dL AST (17-59) IU/L ALT (<50) IU/L Alkaline Phosphatase (38-126) U/L Total Creatine Kinase (55-170) U/L CK-MB (CK-2) (<2.37) ng/mL CK-MB (CK-2) Rel Index (1.5-5.0) % Troponin I (0.01-0.034) ng/mL NT-Pro-B Natriuret Pep (<125) pg/mL Total Protein (6.3-8.2) g/dL Albumin (3.5-5.0) g/dL Globulin (1.7-4.1) g/dL Albumin/Globulin Ratio (1.0-2.8) Procalcitonin (<0.5) ng/mL TSH 0.85 (0.47-4.68) uIU/mL Prolactin (3.7-17.9) ng/mL Urine Color Urine Appearance Urine pH (4.5-8.0) Ur Specific [place] (1.000-1.035) Urine Protein (Negative) Urine Glucose (UA) (Negative) g/dL Urine Ketones (NEGATIVE) Urine Occult Blood (Negative) Urine Nitrate (Negative) Urine Bilirubin (NEGATIVE) Ur Bilirubin Confirm (Negative) Urine Urobilinogen (0.2) E.U./dL Ur Leukocyte Esterase (NEGATIVE) Urine RBC (0-5/HPF) Urine WBC (0-5/HPF) Ur Squamous Epith Cells (0-5/HPF) Urine Bacteria (None) Ur Culture Indicated? Micro UA Comment SARS-CoV-2 (PCR) (Negative) Imaging Data Chest x-ray: Radiologist's Impression: Chest x-ray: Preliminary report stable chest with fibrotic lung changes in the base ECG Data Interpretation: Normal sinus rhythm rate 99 SD interval 184 QRS 120 QTC 495 nonspecific T-wave changes to previous EKG MDM Narrative Medical decision making narrative: The patient is chronically ill. He reports feeling better after getting Zofran yesterday able to keep some food down which is new. Feeling dizzy and seizure-like activity today day of. He likely did have a seizure with lactate of 4.6. However quite hypotensive for EMS , but t hat seemed to improve with fluids and is not hypotensive here. He has no leukocytosis. Urine culture from yesterday did not have any growth. Of does not have any other signs or symptoms of infection lactic acid probably from seizure rather than sepsis. He is given IV fluids. He has these intermittent episodes of dizziness unclear what this is from. The patient does not have focal deficits. Troponin is found to be elevated today is 0.2. Yesterday troponin was indeterminate but was trending down words and he was discharged. No EKG changes. Signed out to Dr. Cárdenas for further management <Silvano Cárdenas, DO - Last Filed: 06/06/21 17:49> Lab Data Attestation: I reviewed the patient's lab results. Labs: Lab Results 06/06/21 06/06/21 06/06/21 Range/Units 04:50 05:00 05:00 WBC 10.2 (4.5-11.0) X10^3/uL RBC 4.52 (4.5-5.9) X10^6/uL Hgb 14.0 (13.5-17.5) g/dL Hct 43.9 (41-53) % MCV 97.2 (80-100) fL MCH 30.9 (26-34) PG MCHC 31.8 (30-36) % RDW 16.2 H (11.6-14.8) % Plt Count 218 (150-400) X10^3/uL Neut % (Auto) 82.8 H D (50-75) % Lymph % (Auto) 10.9 L D (25-40) % Maury % (Auto) 5.6 (3-14) % Eos % (Auto) 0.1 L (2-4) % Baso % (Auto) 0.6 (0-2) % Neut # (Auto) 8400 H (5172-4528) /uL Lymph # (Auto) 1100 (8061-9651) /uL Maury # (Auto) 600 (0-900) /uL Eos # (Auto) 0 (0-450) /uL Baso # (Auto) 100 (0-100) /uL PT (10.1-12.7) SECONDS INR (0.9-1.3) APTT (26.4-36.2) SECONDS Sodium (137-145) mmol/L Potassium (3.4-5.1) mmol/L Chloride (98-107) mmol/L Carbon Dioxide (22-32) mmol/L BUN (9-20) mg/dL Creatinine (0.66-1.25) mg/dL Estimated GFR (>60) mL/min BUN/Creatinine Ratio (6-22) Glucose (80-110) mg/dL Lactate (0.7-2.1) mmol/L Calcium (8.4-10.2) mg/dL Total Bilirubin (0.2-1.3) mg/dL AST (17-59) IU/L ALT (<50) IU/L Alkaline Phosphatase (38-126) U/L Total Creatine Kinase (55-170) U/L CK-MB (CK-2) (<2.37) ng/mL CK-MB (CK-2) Rel Index (1.5-5.0) % Troponin I (0.01-0.034) ng/mL NT-Pro-B Natriuret Pep (<125) pg/mL Total Protein (6.3-8.2) g/dL Albumin (3.5-5.0) g/dL Globulin (1.7-4.1) g/dL Albumin/Globulin Ratio (1.0-2.8) Procalcitonin (<0.5) ng/mL TSH (0.47-4.68) uIU/mL Prolactin 39.8 H (3.7-17.9) ng/mL Urine Color Urine Appearance Urine pH (4.5-8.0) Ur Specific [place] (1.000-1.035) Urine Protein (Negative) Urine Glucose (UA) (Negative) g/dL Urine Ketones (NEGATIVE) Urine Occult Blood (Negative) Urine Nitrate (Negative) Urine Bilirubin (NEGATIVE) Ur Bilirubin Confirm (Negative) Urine Urobilinogen (0.2) E.U./dL Ur Leukocyte Esterase (NEGATIVE) Urine RBC (0-5/HPF) Urine WBC (0-5/HPF) Ur Squamous Epith Cells (0-5/HPF) Urine Bacteria (None) Ur Culture Indicated? Micro UA Comment SARS-CoV-2 (PCR) Negative (Negative) 06/06/21 06/06/21 06/06/21 Range/Units 05:00 05:00 05:05 WBC (4.5-11.0) X10^3/uL RBC (4.5-5.9) X10^6/uL Hgb (13.5-17.5) g/dL Hct (41-53) % MCV (80-100) fL MCH (26-34) PG MCHC (30-36) % RDW (11.6-14.8) % Plt Count (150-400) X10^3/uL Neut % (Auto) (50-75) % Lymph % (Auto) (25-40) % Maury % (Auto) (3-14) % Eos % (Auto) (2-4) % Baso % (Auto) (0-2) % Neut # (Auto) (1197-0692) /uL Lymph # (Auto) (9552-7280) /uL Maury # (Auto) (0-900) /uL Eos # (Auto) (0-450) /uL Baso # (Auto) (0-100) /uL PT (10.1-12.7) SECONDS INR (0.9-1.3) APTT (26.4-36.2) SECONDS Sodium 134 L (137-145) mmol/L Potassium 3.0 L (3.4-5.1) mmol/L Chloride 101 (98-107) mmol/L Carbon Dioxide 22 (22-32) mmol/L BUN 23 H (9-20) mg/dL Creatinine 1.70 H (0.66-1.25) mg/dL Estimated GFR 40.9 L (>60) mL/min BUN/Creatinine Ratio 13.5 (6-22) Glucose 96 (80-110) mg/dL Lactate 4.6 H* (0.7-2.1) mmol/L Calcium 9.3 (8.4-10.2) mg/dL Total Bilirubin 0.6 (0.2-1.3) mg/dL AST 25 (17-59) IU/L ALT 13 (<50) IU/L Alkaline Phosphatase 114 (38-126) U/L Total Creatine Kinase 163 (55-170) U/L CK-MB (CK-2) 3.26 H (<2.37) ng/mL CK-MB (CK-2) Rel Index 2.0 (1.5-5.0) % Troponin I 0.207 H* (0.01-0.034) ng/mL NT-Pro-B Natriuret Pep (<125) pg/mL Total Protein 6.1 L (6.3-8.2) g/dL Albumin 3.1 L (3.5-5.0) g/dL Globulin 3.0 (1.7-4.1) g/dL Albumin/Globulin Ratio 1.0 (1.0-2.8) Procalcitonin 0.13 (<0.5) ng/mL TSH (0.47-4.68) uIU/mL Prolactin (3.7-17.9) ng/mL Urine Color Brown Urine Appearance Cloudy Urine pH 5.5 (4.5-8.0) Ur Specific [place] 1.025 (1.000-1.035) Urine Protein 3+ H (Negative) Urine Glucose (UA) Negative (Negative) g/dL Urine Ketones Trace H (NEGATIVE) Urine Occult Blood 3+ H (Negative) Urine Nitrate Negative (Negative) Urine Bilirubin 1+ H (NEGATIVE) Ur Bilirubin Confirm Negative (Negative) Urine Urobilinogen 0.2 (0.2) E.U./dL Ur Leukocyte Esterase 2+ H (NEGATIVE) Urine RBC >100/hpf H (0-5/HPF) Urine WBC >100/hpf H (0-5/HPF) Ur Squamous Epith Cells 1-5 /hpf (0-5/HPF) Urine Bacteria Many (>30) H (None) Ur Culture Indicated? Specimen cultured Micro UA Comment * SARS-CoV-2 (PCR) (Negative) 06/06/21 06/06/21 06/06/21 Range/Units 07:20 07:20 08:12 WBC (4.5-11.0) X10^3/uL RBC (4.5-5.9) X10^6/uL Hgb (13.5-17.5) g/dL Hct (41-53) % MCV (80-100) fL MCH (26-34) PG MCHC (30-36) % RDW (11.6-14.8) % Plt Count (150-400) X10^3/uL Neut % (Auto) (50-75) % Lymph % (Auto) (25-40) % Maury % (Auto) (3-14) % Eos % (Auto) (2-4) % Baso % (Auto) (0-2) % Neut # (Auto) (3031-0246) /uL Lymph # (Auto) (3604-7288) /uL Maury # (Auto) (0-900) /uL Eos # (Auto) (0-450) /uL Baso # (Auto) (0-100) /uL PT (10.1-12.7) SECONDS INR (0.9-1.3) APTT > 400 H* D (26.4-36.2) SECONDS Sodium (137-145) mmol/L Potassium (3.4-5.1) mmol/L Chloride (98-107) mmol/L Carbon Dioxide (22-32) mmol/L BUN (9-20) mg/dL Creatinine (0.66-1.25) mg/dL Estimated GFR (>60) mL/min BUN/Creatinine Ratio (6-22) Glucose (80-110) mg/dL Lactate 1.9 (0.7-2.1) mmol/L Calcium (8.4-10.2) mg/dL Total Bilirubin (0.2-1.3) mg/dL AST (17-59) IU/L ALT (<50) IU/L Alkaline Phosphatase (38-126) U/L Total Creatine Kinase (55-170) U/L CK-MB (CK-2) (<2.37) ng/mL CK-MB (CK-2) Rel Index (1.5-5.0) % Troponin I 0.242 H* (0.01-0.034) ng/mL NT-Pro-B Natriuret Pep (<125) pg/mL Total Protein (6.3-8.2) g/dL Albumin (3.5-5.0) g/dL Globulin (1.7-4.1) g/dL Albumin/Globulin Ratio (1.0-2.8) Procalcitonin (<0.5) ng/mL TSH (0.47-4.68) uIU/mL Prolactin (3.7-17.9) ng/mL Urine Color Urine Appearance Urine pH (4.5-8.0) Ur Specific [place] (1.000-1.035) Urine Protein (Negative) Urine Glucose (UA) (Negative) g/dL Urine Ketones (NEGATIVE) Urine Occult Blood (Negative) Urine Nitrate (Negative) Urine Bilirubin (NEGATIVE) Ur Bilirubin Confirm (Negative) Urine Urobilinogen (0.2) E.U./dL Ur Leukocyte Esterase (NEGATIVE) Urine RBC (0-5/HPF) Urine WBC (0-5/HPF) Ur Squamous Epith Cells (0-5/HPF) Urine Bacteria (None) Ur Culture Indicated? Micro UA Comment SARS-CoV-2 (PCR) (Negative) 06/06/21 06/06/21 06/06/21 Range/Units 08:12 09:32 13:25 WBC (4.5-11.0) X10^3/uL RBC (4.5-5.9) X10^6/uL Hgb (13.5-17.5) g/dL Hct (41-53) % MCV (80-100) fL MCH (26-34) PG MCHC (30-36) % RDW (11.6-14.8) % Plt Count (150-400) X10^3/uL Neut % (Auto) (50-75) % Lymph % (Auto) (25-40) % Maury % (Auto) (3-14) % Eos % (Auto) (2-4) % Baso % (Auto) (0-2) % Neut # (Auto) (4098-9673) /uL Lymph # (Auto) (5436-9191) /uL Maury # (Auto) (0-900) /uL Eos # (Auto) (0-450) /uL Baso # (Auto) (0-100) /uL PT 13.3 H (10.1-12.7) SECONDS INR 1.2 (0.9-1.3) APTT > 400 H* 31 D (26.4-36.2) SECONDS Sodium (137-145) mmol/L Potassium (3.4-5.1) mmol/L Chloride (98-107) mmol/L Carbon Dioxide (22-32) mmol/L BUN (9-20) mg/dL Creatinine (0.66-1.25) mg/dL Estimated GFR (>60) mL/min BUN/Creatinine Ratio (6-22) Glucose (80-110) mg/dL Lactate (0.7-2.1) mmol/L Calcium (8.4-10.2) mg/dL Total Bilirubin (0.2-1.3) mg/dL AST (17-59) IU/L ALT (<50) IU/L Alkaline Phosphatase (38-126) U/L Total Creatine Kinase (55-170) U/L CK-MB (CK-2) (<2.37) ng/mL CK-MB (CK-2) Rel Index (1.5-5.0) % Troponin I (0.01-0.034) ng/mL NT-Pro-B Natriuret Pep (<125) pg/mL Total Protein (6.3-8.2) g/dL Albumin (3.5-5.0) g/dL Globulin (1.7-4.1) g/dL Albumin/Globulin Ratio (1.0-2.8) Procalcitonin (<0.5) ng/mL TSH (0.47-4.68) uIU/mL Prolactin (3.7-17.9) ng/mL Urine Color Urine Appearance Urine pH (4.5-8.0) Ur Specific [place] (1.000-1.035) Urine Protein (Negative) Urine Glucose (UA) (Negative) g/dL Urine Ketones (NEGATIVE) Urine Occult Blood (Negative) Urine Nitrate (Negative) Urine Bilirubin (NEGATIVE) Ur Bilirubin Confirm (Negative) Urine Urobilinogen (0.2) E.U./dL Ur Leukocyte Esterase (NEGATIVE) Urine RBC (0-5/HPF) Urine WBC (0-5/HPF) Ur Squamous Epith Cells (0-5/HPF) Urine Bacteria (None) Ur Culture Indicated? Micro UA Comment SARS-CoV-2 (PCR) (Negative) 06/06/21 06/06/21 06/06/21 Range/Units 13:25 13:25 13:25 WBC (4.5-11.0) X10^3/uL RBC (4.5-5.9) X10^6/uL Hgb (13.5-17.5) g/dL Hct (41-53) % MCV (80-100) fL MCH (26-34) PG MCHC (30-36) % RDW (11.6-14.8) % Plt Count (150-400) X10^3/uL Neut % (Auto) (50-75) % Lymph % (Auto) (25-40) % Maury % (Auto) (3-14) % Eos % (Auto) (2-4) % Baso % (Auto) (0-2) % Neut # (Auto) (2982-0534) /uL Lymph # (Auto) (5207-7720) /uL Maury # (Auto) (0-900) /uL Eos # (Auto) (0-450) /uL Baso # (Auto) (0-100) /uL PT (10.1-12.7) SECONDS INR (0.9-1.3) APTT (26.4-36.2) SECONDS Sodium 135 L (137-145) mmol/L Potassium 3.2 L (3.4-5.1) mmol/L Chloride 108 H (98-107) mmol/L Carbon Dioxide 21 L (22-32) mmol/L BUN 24 H (9-20) mg/dL Creatinine 1.51 H (0.66-1.25) mg/dL Estimated GFR 46.9 L (>60) mL/min BUN/Creatinine Ratio 15.9 (6-22) Glucose 79 L (80-110) mg/dL Lactate (0.7-2.1) mmol/L Calcium 8.9 (8.4-10.2) mg/dL Total Bilirubin (0.2-1.3) mg/dL AST (17-59) IU/L ALT (<50) IU/L Alkaline Phosphatase (38-126) U/L Total Creatine Kinase 147 (55-170) U/L CK-MB (CK-2) 4.07 H (<2.37) ng/mL CK-MB (CK-2) Rel Index 2.8 (1.5-5.0) % Troponin I 0.441 H* (0.01-0.034) ng/mL NT-Pro-B Natriuret Pep 2980 H (<125) pg/mL Total Protein (6.3-8.2) g/dL Albumin (3.5-5.0) g/dL Globulin (1.7-4.1) g/dL Albumin/Globulin Ratio (1.0-2.8) Procalcitonin (<0.5) ng/mL TSH (0.47-4.68) uIU/mL Prolactin (3.7-17.9) ng/mL Urine Color Urine Appearance Urine pH (4.5-8.0) Ur Specific [place] (1.000-1.035) Urine Protein (Negative) Urine Glucose (UA) (Negative) g/dL Urine Ketones (NEGATIVE) Urine Occult Blood (Negative) Urine Nitrate (Negative) Urine Bilirubin (NEGATIVE) Ur Bilirubin Confirm (Negative) Urine Urobilinogen (0.2) E.U./dL Ur Leukocyte Esterase (NEGATIVE) Urine RBC (0-5/HPF) Urine WBC (0-5/HPF) Ur Squamous Epith Cells (0-5/HPF) Urine Bacteria (None) Ur Culture Indicated? Micro UA Comment SARS-CoV-2 (PCR) (Negative) 06/06/21 Range/Units 13:25 WBC (4.5-11.0) X10^3/uL RBC (4.5-5.9) X10^6/uL Hgb (13.5-17.5) g/dL Hct (41-53) % MCV (80-100) fL MCH (26-34) PG MCHC (30-36) % RDW (11.6-14.8) % Plt Count (150-400) X10^3/uL Neut % (Auto) (50-75) % Lymph % (Auto) (25-40) % Maury % (Auto) (3-14) % Eos % (Auto) (2-4) % Baso % (Auto) (0-2) % Neut # (Auto) (0859-6235) /uL Lymph # (Auto) (6793-2237) /uL Maury # (Auto) (0-900) /uL Eos # (Auto) (0-450) /uL Baso # (Auto) (0-100) /uL PT (10.1-12.7) SECONDS INR (0.9-1.3) APTT (26.4-36.2) SECONDS Sodium (137-145) mmol/L Potassium (3.4-5.1) mmol/L Chloride (98-107) mmol/L Carbon Dioxide (22-32) mmol/L BUN (9-20) mg/dL Creatinine (0.66-1.25) mg/dL Estimated GFR (>60) mL/min BUN/Creatinine Ratio (6-22) Glucose (80-110) mg/dL Lactate (0.7-2.1) mmol/L Calcium (8.4-10.2) mg/dL Total Bilirubin (0.2-1.3) mg/dL AST (17-59) IU/L ALT (<50) IU/L Alkaline Phosphatase (38-126) U/L Total Creatine Kinase (55-170) U/L CK-MB (CK-2) (<2.37) ng/mL CK-MB (CK-2) Rel Index (1.5-5.0) % Troponin I (0.01-0.034) ng/mL NT-Pro-B Natriuret Pep (<125) pg/mL Total Protein (6.3-8.2) g/dL Albumin (3.5-5.0) g/dL Globulin (1.7-4.1) g/dL Albumin/Globulin Ratio (1.0-2.8) Procalcitonin (<0.5) ng/mL TSH 0.85 (0.47-4.68) uIU/mL Prolactin (3.7-17.9) ng/mL Urine Color Urine Appearance Urine pH (4.5-8.0) Ur Specific [place] (1.000-1.035) Urine Protein (Negative) Urine Glucose (UA) (Negative) g/dL Urine Ketones (NEGATIVE) Urine Occult Blood (Negative) Urine Nitrate (Negative) Urine Bilirubin (NEGATIVE) Ur Bilirubin Confirm (Negative) Urine Urobilinogen (0.2) E.U./dL Ur Leukocyte Esterase (NEGATIVE) Urine RBC (0-5/HPF) Urine WBC (0-5/HPF) Ur Squamous Epith Cells (0-5/HPF) Urine Bacteria (None) Ur Culture Indicated? Micro UA Comment SARS-CoV-2 (PCR) (Negative) Imaging Data CT scan - head: Radiologist's Impression: [address] [id number] Scan ReportSigned Patient: Luis Alberto Sena MMR#: [id number]: 8Acct:[id number]/Sex: 65 / MDate of Service: 06/06/21Loc: EDAccession Number: [id number]? ? Procedure: CT head/brain wo con Ordering Provider: Rossy Lujan D.O. PROCEDURE:? CT HEAD/BRAIN WO CON ? INDICATIONS:? dizzy, seizure, fall ? TECHNIQUE:? Noncontrast 4.5 mm thick angled axial sections acquired from the foramen magnum to the vertex, with coronal and sagittal reformats.? For radiation dose reduction, the following was used:? automated exposure control, adjustment of mA and/or kV according to patient size.? ? COMPARISON:? [facility], CT, CT HEAD/BRAIN WO CON, 05/18/2021, 16:40. ? FINDINGS:? Image quality:? Excellent.? ? CSF spaces:? Basal cisterns are patent.? No extra-axial fluid collections.? Ventricles are normal in size and shape.? ? Brain:? No midline shift.? No intracranial masses or hemorrhage.? Coffman-white matter interface is normal.? ? Skull and face:? Calvarium and visualized facial bones are intact, without suspicious lesions.? ? Sinuses:? Trace mucosal thickening in the left maxillary sinus.? Mastoids are clear.? ? IMPRESSION:? No acute intracranial abnormality.? No acute intracranial hemorrhage. ? ? Dictated by: Edmond Li M.D. on 06/06/2021 at 6:57? ?? Approved by: Edmond Li M.D. on 06/06/2021 at 7:00?? MDM Narrative Medical decision making narrative: The patient is chronically ill. He reports feeling better after getting Zofran yesterday able to keep some food down which is new. Feeling dizzy and seizure-like activity today day of. He likely did have a seizure with lactate of 4.6. However quite hypotensive for EMS , but that seemed to improve with fluids and is not hypotensive here. He has no leukocytosis. Urine culture from yesterday did not have any growth. Of does not have any other signs or symptoms of infection lactic acid probably from seizure rather than sepsis. He is given IV fluids. He has these intermittent episodes of dizziness unclear what this is from. The patient does not have focal deficits. Troponin is found to be elevated today is 0.2. Yesterday troponin was indeterminate but was trending down words and he was discharged. No EKG changes. Signed out to Dr. Cárdenas for further management Dr cárdenas: Received turned over. Reviewed patient's history and physical exam. Reviewed patient's labs and EKGs and x-rays. Patient's troponin initially elevated. Repeat troponin shows that it is increasing. Initially his PTT was greater than 400. Because of this heparin was held. It was repeated and conf irmed greater than 400. We then followed the heparin protocol and repeated the PTT and it was 30. Unsure as to why was elevated to begin with and why there was a huge discrepancy however when the repeat PTT was 30 he was started on heparin. He had no further seizure activity. The initial medicine list that came with the patient show that he was on Depakote. The patient does not know who wrote that list out for him. He does not know what seizure medication he is on. He states that whenever he is on was given here in the emergency department. Review of his prior notes shows that he was been given Keppra. He was given a dose of Keppra because of this. We attempted to contact the area hospitals for transfer secondary to NSTEMI in seizures. Unfortunately there was no bed availability in the local area. I did discuss the case with Dr. Watt with cardiology who agreed with the plan up to this point. He did state that the patient most likely is going to did a cardiac catheterization during admission. He recommended continuing to follow the troponins and also serial EKGs. At 1 point during the time here in the emergency department the patient did have a recurrence of some chest discomfort. Repeat EKG showed a sinus rhythm with the heart rate of 87. And it was unchanged from prior EKGs. He was given 1 nitro. This did seem to resolve his symptoms. Given the fact that there is no bed availability for the for see above future I did discuss the case with Dr. Hunt our hospitalist at this facility. We are all in agreement that the patient needs to be transferred to another facility for cardiac consultation however he will be admitted until this becomes available. <Silvano Cárdenas, DO - Last Filed: 06/06/21 17:49> Critical Care Time Critical Care Time: Yes Total Critical Care Time: 40 Attestation: The high probability of a clinically significant, sudden or life threatening deterioration of the cardiovascular system(s) required my full and direct attention, intervention and personal management. The aggregate critical care time was [40] minutes. This time is in addition to time spent performing reported procedures but includes the following: [x] Data Review and interpretation [x] Patient assessment and monitoring of vital signs [x] Documentation [x] Medication orders and management Discharge Plan Departure Patient Disposition: Admitted As Inpatient Clinical Impression: Seizure, Non-ST elevation WI (NSTEMI) Admit Date/Time: 06/06/21 15:34 Admit Provider: Kiran Hunt
[2021-06-06 06:14] LABS: Bacteria Urine Many (>30); Ictotest Urine Negative (Negative); RBC Urine >100/HPF (0-5/HPF); Squamous Epithelial Cell Urine 1-5 /HPF (0-5/HPF); WBC Urine >100/HPF (0-5/HPF)
[2021-06-06 06:15] LABS: Culture Indicated Urine Specimen Cultured
[2021-06-06 06:16] LABS: COVID19 - ADMIT (NP swab/PCR) Negative (Negative)
--- NOTE | 2021-06-06 06:46 | DI.CT.S_ITS ---
PROCEDURE: CT HEAD/BRAIN WO CON INDICATIONS: dizzy, seizure, fall TECHNIQUE: Noncontrast 4.5 mm thick angled axial sections acquired from the foramen magnum to the vertex, with coronal and sagittal reformats. For radiation dose reduction, the following was used: automated exposure control, adjustment of mA and/or kV according to patient size. COMPARISON: [facility], CT, CT HEAD/BRAIN WO CON, 05/18/2021, 16:40. FINDINGS: Image quality: Excellent. CSF spaces: Basal cisterns are patent. No extra-axial fluid collections. Ventricles are normal in size and shape. Brain: No midline shift. No intracranial masses or hemorrhage. Coffman-white matter interface is normal. Skull and face: Calvarium and visualized facial bones are intact, without suspicious lesions. Sinuses: Trace mucosal thickening in the left maxillary sinus. Mastoids are clear. IMPRESSION: No acute intracranial abnormality. No acute intracranial hemorrhage. Dictated by: Edmond Li M.D. on 06/06/2021 at 6:57 Approved by: Edmond Li M.D. on 06/06/2021 at 7:00
[2021-06-06 07:04] LABS: Reflexed Lactate in 2 Hours Y
[2021-06-06] MEDS: SODIUM CHLORIDE 0.9% 1,000 ML 1000 ML IV (07:05)
[2021-06-06] MEDS: PIPERACILLIN/TAZO 4.5 GM in SODIUM CHLORIDE 0.9% 100 ML 200 ML IV (07:05)
[2021-06-06 07:37] LABS: Lactate 2HR (Lactic Acid Rflx) 1.9 mmol/L (0.7-2.1)
[2021-06-06 07:51] LABS: Troponin I 0.242 ng/mL (0.01-0.034)
[2021-06-06] MEDS: ASPIRIN 81 MG CHEW TAB 324 MG PO (08:00)
[2021-06-06] MEDS: HEPARIN DRIP 25,000 UNIT/500 ML IV.SOLN 20 UNIT IV (08:01)
[2021-06-06] MEDS: HEPARIN 5,000 UNIT/ML VIAL 5000 UNIT IV (08:01)
[2021-06-06 08:57] LABS: INR 1.2 (0.9-1.3); Prothrombin Time 13.3 SECONDS (10.1-12.7)
[2021-06-06 09:00] LABS: PTT Partial Thromboplastin Tim > 400 SECONDS (26.4-36.2)
[2021-06-06 10:03] LABS: PTT Partial Thromboplastin Tim > 400 SECONDS (26.4-36.2)
--- NOTE | 2021-06-06 12:58 | PC.NURSE ---
Attempting to find cardiology bed for pt for dx NSTEMI. Called [facility], [facility], [facility], [facility] w/ no bed availability. VM took pt info, may have bed availability within 24-48 hours.
[2021-06-06 13:41] LABS: PTT Partial Thromboplastin Tim 31 SECONDS (26.4-36.2)
[2021-06-06 13:42] LABS: Creatine Kinase 147 U/L (55-170)
[2021-06-06 13:58] LABS: CKMB % Relative Index 2.8 % (1.5-5.0); Creatine Kinase MB 4.07 ng/mL (<2.37)
--- NOTE | 2021-06-06 14:11 | PC.NURSE ---
Discussed case w/ [facility] ([facility]). Pt can not go to [facility] r/t [place] insurance. [facility] reports no tele beds in area and expect 24-48 hour wait. She [facility] dictates.
[2021-06-06] MEDS: SODIUM CHLORIDE 0.9% 1,000 ML 125 ML IV (14:18)
[2021-06-06] MEDS: POTASSIUM CHLORIDE IN WATER 10 MEQ/100 ML PIGGYBACK 100 MEQ IV ×2 (14:19→17:07)
[2021-06-06 14:20] LABS: NT-proBNP (BNP-Adult 18+) 2980 pg/mL (<125)
[2021-06-06 14:22] LABS: Troponin I 0.441 ng/mL (0.01-0.034)
[2021-06-06] MEDS: NITROGLYCERIN 0.4 MG SL TAB SL (15:08)
[2021-06-06] MEDS: levETIRAcetam 1,000 MG in SODIUM CHLORIDE 0.9% 100 ML 440 ML IV (15:21)
--- NOTE | 2021-06-06 15:50 | PC.NURSE ---
Dr. Watt from Cardiology called as pt's had called him. Updated Dr. Watt however there are no beds at [facility].
--- NOTE | 2021-06-06 16:23 | DI.ECHO.S_ITS ---
[facility]---------+ [facility] +---------+ : : [address] : : : : [id number] : : : : Phone: [phone]+ Echocardiogram Report + + :Name: GUNNAR SHANKAR Study Date: 06/07/2021 Height: 77 in : :[facility] ReadingLocation: Weight: 240 lb : : Gender: Male BSA: 2.4 m2 : :: 1955 Age: 65 yrs BP: 139/88 mmHg: :Reason For Study: NSTEMI : :Ordering Physician: SHANNAN, : :AMADA Performed By: Taylor Yung : :Referring: AMADA CAMPBELL : + + Interpretation Summary The study quality was technically difficult. The ejection fraction is estimated to be 40-45%. Unable to grade diastolic function. Mildly reduced RV function. Mild tricuspid regurgitation. There is mild tricuspid regurgitation. Normal PASP. Compared to the prior study dated 04/21/2021, the ejection fraction has decreased slightly. Procedure: A two-dimensional transthoracic echocardiogram with color flow and Doppler was performed. The study quality was technically difficult. Comparison is made with the echocardiogram of 04/21/2021. The patient was in sinus rhythm with heart rates between 70-85 bpm during the exam. Left Ventricle: The left ventricle is normal in size and wall thickness. The ejection fraction is estimated to be 40-45%. There is a moderate dyssynchronous contraction pattern due to the paced rhythm. Right Ventricle: There is a pacemaker lead in the right ventricle. The right ventricle is normal size. Right ventricular systolic function is mildly reduced. Atria: Both atria are normal in size. There is no Doppler evidence for an interatrial shunt. Mitral Valve: The mitral valve leaflets appear mildly thickened, but open well. There is mild mitral annular calcification. There is mild to moderate mitral regurgitation. The mitral regurgitant jet is eccentrically directed. Aortic Valve: The aortic valve is not well visualized. There is no aortic valve stenosis. No aortic regurgitation is present. Tricuspid Valve: The tricuspid valve is not well visualized, but is grossly normal. There is mild tricuspid regurgitation. The right ventricular systolic pressure is estimated to be at least 20-25 mmHg based on an estimated right atrial pressure of 3 mm Hg. Pulmonic Valve: The pulmonic valve is not well visualized. There is no pulmonic valvular regurgitation. Great Vessels: The aortic root is not well visualized. The IVC is of normal diameter and collapses greater than 50% with a sniff. This suggests a low right atrial pressure of 3 mm Hg. Pericardium/ Pleura There is no pericardial effusion. There is no pleural effusion. MMode/2D Measurements & Calculations LVIDd: 4.6 cm LVOT diam: 2.5 cm LVIDs: 3.8 cm FS: 18.1 % IVSd: 1.0 cm LVPWd: 0.91 cm LV baird. diameter/BSA (cm/m^2): 1.9 LV sys. diameter/BSA (cm/m^2): 1.6 LA A2 area: 17.0 cm2 RA long axis: 4.8 cm LA A4 area: 17.0 cm2 RA area: 14.3 cm2 LA length (vol): 5.0 cm RA vol: 36.2 ml LA vol: 48.9 ml RA : 15.0 ml/m2 LA vol index: 20.2 ml/m2 IVC diam: 1.5 cm RVD1 (basal): 2.9 cm TAPSE: 1.5 cm Doppler Measurements & Calculations Ao V2 max: 82.4 cm/sec LVOT Max David: 81.4 cm/sec Ao V2 mean: 56.4 cm/sec LV V1 max P.7 mmHg Ao max P.7 mmHg LV V1 VTI: 15.4 cm Ao mean P.5 mmHg ASHLEY(I,D): 5.2 cm2 Ao V2 VTI: 14.4 cm ASHLEY(V,D): 4.8 cm2 sev ratio: 1.1 ASHLEY indexed to BSA (cm^2/m^2): 2.2 MV E max david: 60.7 cm/sec TR max davdi: 194.9 cm/sec MV A max david: 100.4 cm/sec TR max P.2 mmHg MV E/A: 0.60 PA V2 max: 69.8 cm/sec Med Peak E' David: 5.8 cm/sec PA V2 mean: 49.4 cm/sec E/E' med: 10.4 PA mean P.1 mmHg Lat Peak E' David: 7.6 cm/sec E/E' lat: 8.0 E/e' average: 9.2 MV dec time: 0.27 sec SVLVOT): 75.3 ml Reading Physician:12:29 PM
[2021-06-06 16:42] LABS: BUN Creatinine Ratio 15.9 (6-22); Blood Urea Nitrogen 24 mg/dL (9-20); Calcium 8.9 mg/dL (8.4-10.2); Carbon Dioxide 21 mmol/L (22-32); Chloride 108 mmol/L (98-107); Estimated Glomerular Filt Rate 46.9 mL/min (>60); Glucose 79 mg/dL (80-110); HEMOLYSIS 25 (0-50); Potassium 3.2 mmol/L (3.4-5.1); Sodium 135 mmol/L (137-145)
--- NOTE | 2021-06-06 17:26 | PM.HP.1 ---
History of Present Illness History of Present Illness Chief complaint: Seizure Narrative: Mr. Sena is a 65M with PMH CAD, sss now s/p ppm, possible history of seizures, large cell lymphoma s/p chemo in remission since 2000, hypothyroid, history of hematuria from possibly polyps, depression, frequent UTs who presented with dizziness and seizure like activity. Patient states that he has been feeling poorly for a long time, at least a year. He has noted 160lb weight loss, but is not sure why. More acutely he was seen recently in the ED last month and had a UTI and concern for seizure and was started on keppra. 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 He is awaiting neurology follow up. He also recently was in the ED for nausea and discharged home. He got up to use the restroom, felt dizzy, and had tonic clonic shaking movements per his , this stopped and when EMS arrived he had another shaking episode. He was hypotensive and received fluids. In the ED workup was done, he was initially mildly tachycardic with otherwise normal vitals. WBC 10.2, K 3.0, creatinine 1.7, lactate 4, prolactin 39.8, procalcitonin 0.13, troponin .242->0.441. Lactate 1.9. UA showed protein, occult blood, leuk esterase, many bacteria. COVID negative. Chest xray with no acute process. EKG showed nonspecific t-wave changes. Head CT negative. He was ordered for aspirin, heparin gtt, depakote, keppra. While in the ED he had an episode of chest discomfort with no shortness of breath that improved with nitro. EKG was repeated and was not significantly changed from prior. Attempts were made by ED staff to have patient transferred to higher level of care with cardiology and neurology for his NSTEMI and seizure. This was unsuccessful due to unprecedented volume at other hospitals and because of this he was admitted at this hospital while awaiting transfer. Patient History Medical History Acquired hypothyroidism (06/06/16) Depression Essential hypertension (06/06/16) Hematuria History of lymphoma (06/06/16) Migraine without status migrainosus, not intractable (06/06/16) Paroxysmal atrial fibrillation (06/06/16) Pure hypercholesterolemia (06/06/16) Shingles Weakness of both lower extremities (08/02/17) Surgical History History of cholecystectomy History of inguinal hernia repair History of lumbar fusion Family & Social History Family History Mother Pancreatic cancer Father Stroke Social History: household members spouse Safety & Behavioral: Feels Safe in Current Yes Environment Tobacco & Substance use: Smoking Status Never smoker alcohol intake frequency holiday/special occasion Substance Use Type does not use Meds Home Medications and Allergies Home Medications Medication Instructions Recorded Confirmed Type atorvastatin 40 mg tablet 40 mg PO HS #0 tab 06/06/16 06/06/21 History bisacodyl 5 mg tablet (Correctol) 5 mg PO DAILY PRN #0 06/06/16 06/06/21 History cholecalciferol (vitamin D3) 25 1,000 unit PO QDAY #0 tab 06/06/16 06/06/21 History mcg (1,000 unit) tablet (Vitamin D3) levothyroxine 150 mcg tablet 150 mcg PO QAM #0 tab 06/06/16 06/06/21 History (Levoxyl) valacyclovir 500 mg tablet 500 mg PO QDAY #0 tab 06/06/16 06/06/21 History cyclobenzaprine 10 mg tablet 10 mg PO TIDP PRN #0 02/21/17 06/06/21 History allopurinol 300 mg tablet 300 mg PO QDAY #90 tab 12/22/17 06/06/21 Rx ondansetron 4 mg disintegrating 4 mg PO Q6HR PRN #10 tab 06/05/21 06/06/21 Rx tablet divalproex 500 mg tablet,extended 1,000 mg PO DAILY 06/06/21 06/06/21 History release 24 hr mecobalamin (vitamin B12) 1,000 1,000 mcg PO DAILY 06/06/21 06/06/21 History mcg disintegrating tablet,sublingual Allergies Allergy/AdvReac Type Severity Reaction Status Date / Time oxycodone [From PERCOCET] Allergy Unknown Verified 06/06/21 05:07 Review of Systems Review of Systems Narrative: 14 systems reviewed and negative aside from what is noted in HPI Exam Vital Signs (past 8 hours): - 06/06/21 09:30 06/06/21 09:34 06/06/21 10:00 Temperature Pulse Rate 88 93 H 94 H Respiratory Rate 13 13 17 Blood Pressure 120/81 156/95 H Pulse Oximetry 100 100 100 06/06/21 10:30 06/06/21 11:00 06/06/21 11:30 Temperature Pulse Rate 91 H 91 H 92 H Respiratory Rate 17 17 17 Blood Pressure 138/91 H 142/89 H 150/97 H Pulse Oximetry 100 100 100 06/06/21 12:00 06/06/21 12:30 06/06/21 13:00 Temperature Pulse Rate 91 H 87 85 Respiratory Rate 18 16 14 Blood Pressure 148/91 H 154/88 H 138/83 Pulse Oximetry 100 100 100 06/06/21 13:30 06/06/21 14:00 06/06/21 14:30 Temperature Pulse Rate 89 88 93 H Respiratory Rate 16 17 17 Blood Pressure 148/89 H 139/91 H 120/70 Pulse Oximetry 100 100 100 06/06/21 15:00 06/06/21 15:08 06/06/21 15:09 Temperature Pulse Rate 89 84 84 Respiratory Rate 20 17 Blood Pressure 116/82 121/76 121/76 Pulse Oximetry 100 100 06/06/21 15:28 06/06/21 15:30 06/06/21 16:20 Temperature 96.8 F L Pulse Rate 96 H 92 H 83 Respiratory Rate 12 8 L 17 Blood Pressure 128/87 133/84 130/74 Pulse Oximetry 98 98 100 Oxygen Delivery Method Room Air Oxygen Flow Rate 0 Narrative Exam Narrative: GEN: chronically ill appearing HEENT: PERRL, moist mucous membranes CV: regular rate and rhythm with no murmurs PULM: clear bilaterally, no wheezes, rhonchi, rales ABD: soft, nontender, nondistended, no organomegaly, normal bowel sounds EXT: slightly cool, but well perfused, no edema NEURO: awake, alert and orientend, no focal deficits PSYCH: emotionally labile, irritable, tearful Objective Labs Result Diagrams: 06/06/21 05:00 06/06/21 13:25 Labs: Laboratory Results - last 24 hr 06/06/21 06/06/21 06/06/21 04:50 05:00 05:00 WBC 10.2 RBC 4.52 Hgb 14.0 Hct 43.9 MCV 97.2 MCH 30.9 MCHC 31.8 RDW 16.2 H Plt Count 218 Neut % (Auto) 82.8 H D Lymph % (Auto) 10.9 L D [place] % (Auto) 5.6 Eos % (Auto) 0.1 L Baso % (Auto) 0.6 Neut # (Auto) 8400 H Lymph # (Auto) 1100 [place] # (Auto) 600 Eos # (Auto) 0 Baso # (Auto) 100 PT INR APTT Sodium Potassium Chloride Carbon Dioxide BUN Creatinine Estimated GFR BUN/Creatinine Ratio Glucose Lactate Calcium Total Bilirubin AST ALT Alkaline Phosphatase Total Creatine Kinase CK-MB (CK-2) CK-MB (CK-2) Rel Index Troponin I NT-Pro-B Natriuret Pep Total Protein Albumin Globulin Albumin/Globulin Ratio Procalcitonin Prolactin 39.8 H Urine Color Urine Appearance Urine pH Ur Specific Ethel Urine Protein Urine Glucose (UA) Urine Ketones Urine Occult Blood Urine Nitrate Urine Bilirubin Ur Bilirubin Confirm Urine Urobilinogen Ur Leukocyte Esterase Urine RBC Urine WBC Ur Squamous Epith Cells Urine Bacteria Ur Culture Indicated? Micro UA Comment SARS-CoV-2 (PCR) Negative 06/06/21 06/06/21 06/06/21 05:00 05:00 05:05 WBC RBC Hgb Hct MCV MCH MCHC RDW Plt Count Neut % (Auto) Lymph % (Auto) [place] % (Auto) Eos % (Auto) Baso % (Auto) Neut # (Auto) Lymph # (Auto) [place] # (Auto) Eos # (Auto) Baso # (Auto) PT INR APTT Sodium 134 L Potassium 3.0 L Chloride 101 Carbon Dioxide 22 BUN 23 H Creatinine 1.70 H Estimated GFR 40.9 L BUN/Creatinine Ratio 13.5 Glucose 96 Lactate 4.6 H* Calcium 9.3 Total Bilirubin 0.6 AST 25 ALT 13 Alkaline Phosphatase 114 Total Creatine Kinase 163 CK-MB (CK-2) 3.26 H CK-MB (CK-2) Rel Index 2.0 Troponin I 0.207 H* NT-Pro-B Natriuret Pep Total Protein 6.1 L Albumin 3.1 L Globulin 3.0 Albumin/Globulin Ratio 1.0 Procalcitonin 0.13 Prolactin Urine Color Brown Urine Appearance Cloudy Urine pH 5.5 Ur Specific Ethel 1.025 Urine Protein 3+ H Urine Glucose (UA) Negative Urine Ketones Trace H Urine Occult Blood 3+ H Urine Nitrate Negative Urine Bilirubin 1+ H Ur Bilirubin Confirm Negative Urine Urobilinogen 0.2 Ur Leukocyte Esterase 2+ H Urine RBC >100/hpf H Urine WBC >100/hpf H Ur Squamous Epith Cells 1-5 /hpf Urine Bacteria Many (>30) H Ur Culture Indicated? Specimen cultured Micro UA Comment * SARS-CoV-2 (PCR) 06/06/21 06/06/21 06/06/21 07:20 07:20 08:12 WBC RBC Hgb Hct MCV MCH MCHC RDW Plt Count Neut % (Auto) Lymph % (Auto) [place] % (Auto) Eos % (Auto) Baso % (Auto) Neut # (Auto) Lymph # (Auto) [place] # (Auto) Eos # (Auto) Baso # (Auto) PT INR APTT > 400 H* D Sodium Potassium Chloride Carbon Dioxide BUN Creatinine Estimated GFR BUN/Creatinine Ratio Glucose Lactate 1.9 Calcium Total Bilirubin AST ALT Alkaline Phosphatase Total Creatine Kinase CK-MB (CK-2) CK-MB (CK-2) Rel Index Troponin I 0.242 H* NT-Pro-B Natriuret Pep Total Protein Albumin Globulin Albumin/Globulin Ratio Procalcitonin Prolactin Urine Color Urine Appearance Urine pH Ur Specific Ethel Urine Protein Urine Glucose (UA) Urine Ketones Urine Occult Blood Urine Nitrate Urine Bilirubin Ur Bilirubin Confirm Urine Urobilinogen Ur Leukocyte Esterase Urine RBC Urine WBC Ur Squamous Epith Cells Urine Bacteria Ur Culture Indicated? Micro UA Comment SARS-CoV-2 (PCR) 06/06/21 06/06/21 06/06/21 08:12 09:32 13:25 WBC RBC Hgb Hct MCV MCH MCHC RDW Plt Count Neut % (Auto) Lymph % (Auto) [place] % (Auto) Eos % (Auto) Baso % (Auto) Neut # (Auto) Lymph # (Auto) [place] # (Auto) Eos # (Auto) Baso # (Auto) PT 13.3 H INR 1.2 APTT > 400 H* 31 D Sodium Potassium Chloride Carbon Dioxide BUN Creatinine Estimated GFR BUN/Creatinine Ratio Glucose Lactate Calcium Total Bilirubin AST ALT Alkaline Phosphatase Total Creatine Kinase CK-MB (CK-2) CK-MB (CK-2) Rel Index Troponin I NT-Pro-B Natriuret Pep Total Protein Albumin Globulin Albumin/Globulin Ratio Procalcitonin Prolactin Urine Color Urine Appearance Urine pH Ur Specific Ethel Urine Protein Urine Glucose (UA) Urine Ketones Urine Occult Blood Urine Nitrate Urine Bilirubin Ur Bilirubin Confirm Urine Urobilinogen Ur Leukocyte Esterase Urine RBC Urine WBC Ur Squamous Epith Cells Urine Bacteria Ur Culture Indicated? Micro UA Comment SARS-CoV-2 (PCR) 06/06/21 06/06/21 06/06/21 13:25 13:25 13:25 WBC RBC Hgb Hct MCV MCH MCHC RDW Plt Count Neut % (Auto) Lymph % (Auto) [place] % (Auto) Eos % (Auto) Baso % (Auto) Neut # (Auto) Lymph # (Auto) [place] # (Auto) Eos # (Auto) Baso # (Auto) PT INR APTT Sodium 135 L Potassium 3.2 L Chloride 108 H Carbon Dioxide 21 L BUN 24 H Creatinine 1.51 H Estimated GFR 46.9 L BUN/Creatinine Ratio 15.9 Glucose 79 L Lactate Calcium 8.9 Total Bilirubin AST ALT Alkaline Phosphatase Total Creatine Kinase 147 CK-MB (CK-2) 4.07 H CK-MB (CK-2) Rel Index 2.8 Troponin I 0.441 H* NT-Pro-B Natriuret Pep 2980 H Total Protein Albumin Globulin Albumin/Globulin Ratio Procalcitonin Prolactin Urine Color Urine Appearance Urine pH Ur Specific Ethel Urine Protein Urine Glucose (UA) Urine Ketones Urine Occult Blood Urine Nitrate Urine Bilirubin Ur Bilirubin Confirm Urine Urobilinogen Ur Leukocyte Esterase Urine RBC Urine WBC Ur Squamous Epith Cells Urine Bacteria Ur Culture Indicated? Micro UA Comment SARS-CoV-2 (PCR) Assessment & Plan Assessment & Plan narrative: Mr. Sena is a 65M with complicated PMH who presents with 1. NSTEMI in setting of CAD, acute -continues to have intermittent chest pain -EKG nonspecific changes -troponin continues to rise -continue heparin gtt -ordered for aspirin and statin -await transer to another hospital for angiogram, multiple hospital contacted and none accepting currently -ECHO ordered 2. 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 UTI -continue zosyn for now given recurrent UTIs and recent hospitalization -follow up urine culture 4. THERESA -baseline creatinine appears near 0.9-1.1 -creatinine on presentation 1.7 -improved to 1.51 with IV fluids, possibly prerenal -significant proteinuria in urine, may benefit from outpatient nephrology 5. History of hematuria -has bladder polyps per previous notes, and has had biopsy that per patient didn't show anything but this was at another hospital -monitor for gross hematuria while on heparin 6. Profound weight loss -etiology not clear, reviewed past CT and no clear source -should follow up with PCP to make sure appropriate cancer screenings performed -may benefit from GI workup/referral 8. Depression/anxiety - was previously on buproprion -not on this currently per med list 9. Hypothyroid -check TSH -continue synthroid 10. Large cell lymphoma s/p chemo -in remission for years per patient DVT ppx: on full heparin gtt DIET: cardiac CODE: DNR Proxy: Chelle Penaleigh, spouse I have utilized all available immediate resources to obtain, update, or review the patient's current medications. Time Spent With Patient Critical Care time: I spent a total of [] minutes of critical care time on this patient's care today; this time is exclusive of procedural time. Quality VTE Deep Vein Thrombosis/Pulmonary Embolism Present on Admission: Yes MIPS - Admit I confirm the patient?s Advance Care Plan is present, Code status is documented, Surrogate decision maker is in patient?s record [If Yes, STOP here]: Yes
[2021-06-06] MEDS: ACETAMINOPHEN 325 MG TABLET 650 MG PO (18:03)
[2021-06-06 18:19] LABS: PTT Partial Thromboplastin Tim 77 SECONDS (26.4-36.2)
[2021-06-06] MEDS: POTASSIUM CHLORIDE 20 MEQ TAB PO (19:16)
[2021-06-06] MEDS: PIPERACILLIN/TAZO 3.375 GM in SODIUM CHLORIDE 0.9% 100 ML 25 ML IV (19:16)
[2021-06-06] MEDS: SODIUM CHLORIDE 0.9% 250 ML 21 ML IV (19:25)
[2021-06-06] MEDS: LACTATED RINGERS 1,000 ML 100 ML IV ×2 (19:28→23:20)
[2021-06-06] MEDS: levETIRAcetam 250 MG TABLET 1000 MG PO (20:44)
[2021-06-06] MEDS: ATORVASTATIN 20 MG TABLET 80 MG PO (20:45)
[2021-06-07 00:55] LABS: PTT Partial Thromboplastin Tim 94 SECONDS (26.4-36.2)
[2021-06-07 01:46] LABS: TSH w/ Reflex to FT4 0.85 uIU/mL (0.47-4.68)
--- NOTE | 2021-06-07 02:16 | PC.NURSE ---
Patient is alert and oriented but soft spoken with delayed responses; flat affect. Breath sounds CTA with RA sat of 100%; on continuous pulse oximetry. HRR with telemetry reading of SR; denies any chest pain at time of assessment and continues on heparin gtt. Denies nausea. BT present and abdomen is soft. Was incontinent on previous shift but did void 100cc urine via urinal at shift changed. Is being assisted to reposition q2h as skin between buttocks and coccyx is reddened but blanchable. Patient with generalized weakness. Denies pain. Bilateral feet are reddened and skin is dry and scaly. Area of light erythema on right lateral LE. Wearing heel protectors and bilateral calf SCD's. 1+ bilateral LE edema. Gait not assessed at this time. Fall risk score is moderate and bed alarm is activated.
[2021-06-07] MEDS: PIPERACILLIN/TAZO 3.375 GM in SODIUM CHLORIDE 0.9% 100 ML 25 ML IV ×2 (03:07→11:17)
[2021-06-07 03:19] VITALS: BP 135/70; PULSE 91; RESP 18; TEMP 36.2; O2SAT 99
[2021-06-07] MEDS: LEVOTHYROXINE 150 MCG TABLET PO (06:06)
[2021-06-07 06:24] LABS: Add Manual Diff / Slide Review NO; Basophils Absolute Auto 100 /uL (0-100); Basophils Percent Auto 1.1 % (0-2); Eosinophils Absolute Auto 100 /uL (0-450); Eosinophils Percent Auto 0.9 % (2-4); Hemoglobin 11.8 g/dL (13.5-17.5); Lymphocytes Absolute Auto 1700 /uL (1100-4500); Mean Corpuscular HGB Conc 32.7 % (30-36); Mean Corpuscular Hemoglobin 31.4 PG (26-34); Mean Corpuscular Volume 96.1 fL (80-100); Monocytes Absolute Auto 400 /uL (0-900); Monocytes Percent Auto 6.2 % (3-14); Neutrophils Absolute Auto 4200 /uL (1500-7000); Neutrophils Percent Auto 64.8 % (50-75); Platelet Count 172 X10^3/uL (150-400); Red Blood Cell Count 3.75 X10^6/uL (4.5-5.9); White Blood Cell Count 6.5 X10^3/uL (4.5-11.0)
[2021-06-07 06:30] LABS: PTT Partial Thromboplastin Tim 71 SECONDS (26.4-36.2)
[2021-06-07 06:31] LABS: Blood Urea Nitrogen 24 mg/dL (9-20); Calcium 8.7 mg/dL (8.4-10.2); Carbon Dioxide 24 mmol/L (22-32); Chloride 104 mmol/L (98-107); Estimated Glomerular Filt Rate 47.3 mL/min (>60); Glucose 81 mg/dL (80-110); HEMOLYSIS < 15 (0-50); Potassium 4.3 mmol/L (3.4-5.1); Sodium 133 mmol/L (137-145)
[2021-06-07 08:00] VITALS: BP 125/81; PULSE 84; RESP 18; TEMP 36.1; O2SAT 100
[2021-06-07] MEDS: ASPIRIN EC 81 MG TABLET PO (08:37)
[2021-06-07] MEDS: levETIRAcetam 250 MG TABLET 1000 MG PO (08:37)
[2021-06-07 09:32] LABS: Troponin I 0.319 ng/mL (0.01-0.034)
[2021-06-07] MEDS: METOPROLOL IR 25 MG TABLET PO (09:36)
--- NOTE | 2021-06-07 09:58 | PC.NURSE ---
Lab call with critical troponin level. aware. n
--- NOTE | 2021-06-07 10:40 | CM.DANOTE ---
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 JAZMIN called [facility] and updated on hospital transfer. SW had return msg from Heather [facility] JAZMIN stating she completed phone discussion with pt on May 26 and pt was stating he was independent with all ADLs at that time. [facility] willing to accept updated information on pt abilities but pt now transferring to [facility] and SW left msg for Heather to follow up with pt info at [facility]. BF Original Note: Patient is a 65 yo male who was admitted on 06/06/21 for Seizure. Pt has [facility] myAchy for insurance and his PCP is Dr. Jerad Mar at [facility]. EMR was reviewed. Per , pt with a hx of large cell lymphoma and chemo and in remission since 2000 and now with possible seizures and pt has been waiting for Neurology follow up and admitted and attempting hospital transfer for higher level of care for Cardiology and Neurology. Pt was last admitted at [facility] in February 2021 this year a couple months ago for ureter clot and Urology consult/surgical intervention and was able to d/c home. JAZMIN met bedside with pt and explained role and he confirms that he still lives at home in [place] with his spouse who is also a disabled and spouse is pt's primary CG but pt states spouse has been taking on more assist than she should. Pt denies any other supportive services in place like HH or in-home caregivers. Pt confirms his PCP is still at the [facility] and states he has spoken to [facility] JAZMIN Romero ([phone]) previously to begin the process of getting in-home assist through the [facility] but nothing is set up yet. Pt states that he feels once I get some assist at home with making physical therapy and mobility strength I feel like I will be much more independent with my home needs. Pt agreeable with JAZMIN making HH referral and no HH preference (just one contracted with his insurance) and with JAZMIN calling the [facility] to inquire about further in-home assist. JAZMIN called [facility] and left msg regarding pt and his need for in-home assist and provided call back if needed and hospital room pt is in. JAZMIN called [facility] based on vendor calendar and pt's insurance and confirmed they are typically contracted with his insurance and they are willing to review for HH RN/PT/OT/SALES DEVELOPMENT DIRECTOR and aware that pt may end up with a hospital transfer for higher level of care. SW efaxed initial referral to [facility]. Plan: SW to follow closely for possible hospital transfer for Cardiology and Neurology needs and also [facility] review of pt's insurance and [facility] SW to follow up with pt regarding in-home assist. If pt remains at the hospital, F2F needed for HH at d/c. VIKTORIYA Claros Discharge Planning/Care Management CM Discharge Assessment Start: 06/07/21 10:37 Freq: Status: Active Protocol: Document 06/07/21 10:37 BF (Rec: 06/07/21 10:39 BF [id number]) Discharge Planning Assessment Assigned Diamond Sorter VIKTORIYA Ness DPOA/Assigned Designee Name spouse Chelle Contact Information [phone] Advance Directives? No Advance Directives on File No History Provided By Patient,Medical Record Has Patient been admitted in last 30 No days? Comment last admission in February 2021 this year Prior Living Arrangements House Household Members spouse Type of transporation used prior to Relies on Others admit Independent with ADL's No Is patient alert and oriented? Yes Needs Assistance With Meal Prep,Managing Medications ,Home Chores / Shopping Caregiver for Another No Patient/Family Preference Home with Home Health Comment Pending possible hospital transfer for Cardiology and Neurology Barriers to Discharge Yes Discharge Plan Home with Home Health Transportation Arrangement Spouse to likely transport if pt is not a hospital transfer Referrals Initiated Home Health Additional Comment [facility] reviewing to confirm they accept his insurance If patient plan is home with home health No: Waiting to see if : Has signed face to face form been transfers completed? Medicare Choice List Provided Yes SNF/HH Preference [facility] reviewing Review Status In Process Please Provide Date Initial DC 06/07/21 Assessment Was Performed Next Review Type Continued Stay Review
[2021-06-07 12:00] VITALS: BP 127/81; PULSE 80; RESP 17; TEMP 36.1; O2SAT 100
[2021-06-07 12:46] LABS: PTT Partial Thromboplastin Tim 64 SECONDS (26.4-36.2)
--- NOTE | 2021-06-07 13:59 | DIET.CONS ---
Dietary Consultation Note Admission Date: 06/06/2021 15:34 Assessment: 65y M admitted for seizure referred to nutrition for severe unintentional weight loss. Pt sleeping soundly when RD visited. Chart review shows historical weights from 02/12 to present with severe and progressive weight loss of 18.8% in four months (severe PCM). Per chart review pt extremely concerned regarding unintended weight loss. Ht: 195.58 cm Wt: 108 kg (-18.8% in 4mo, severe) BMI: 28.4 UBW: 133kg in 02/12 Last BM: 06/07/21 (06/07/21 13:19) MNA: 8 Checo Score: 12 Diet: 06/06/21 Breakfast Heart Healthy Diet Diet Modifications: Percent of last meal consumed (last 48h) Percent Meal Consumed 25% 06/07/21 13:36 Percent Meal Consumed 45 06/07/21 08:38 Percent Meal Consumed 25% 06/06/21 18:00 Labs: RBC 3.75 X10^6/uL (4.5-5.9) L 06/07/21 06:10 Hgb 11.8 g/dL (13.5-17.5) L 06/07/21 06:10 Hct 36.0 % (41-53) L 06/07/21 06:10 Creatinine 1.50 mg/dL (0.66-1.25) H 06/07/21 06:10 Lactate 1.9 mmol/L (0.7-2.1) 06/06/21 07:20 NT-Pro-B Natriuret Pep 2980 pg/mL (<125) H 06/06/21 13:25 Nutrition Diagnosis: Severe Acute Protein Calorie Malnutrition r/t unknown etiology aeb 18.8% unintended weight loss in 4mo and pt reports more significant weight loss this year, POs this hospitalization meeting 25% EER. Interventions: Pt being transferred to higher level care. Recc nutrition consultation c nutrition intervention to support malnourished state. EER: 100g PRO (0.9g/kg per possible THERESA on CKD), 2700kcal (25kcal/kg per malnourished overweight)
--- NOTE | 2021-06-07 14:07 | PC.NURSE ---
Patient to discharge to [facility] for cardiac cath. Called report to accepting RNJose Angel. Called pt's to give update and room number. Pt leaving via stretcher with ambulance crew.
--- NOTE | 2021-06-07 19:36 | P.DS_ITS ---
History of Present Illness History of Present Illness Chief complaint: Seizure Narrative: Mr. Sena is a 65M with PMH CAD, sss now s/p ppm, possible history of seizures, large cell lymphoma s/p chemo in remission since 2000, hypothyroid, history of hematuria from possibly polyps, depression, frequent UTs who pr esented with dizziness and seizure like activity. Patient states that he has been feeling poorly for a long time, at least a year. He has noted 160lb weight loss, but is not sure why. More acutely he was seen recently in the ED last month and had a UTI and concern for seizure and was started on keppra. His family [employer] PCP switched this to depakote for possible med interaction concerns. He is awaiting neurology follow up. He also recently was in the ED for nausea and discharged home. He got up to use the restroom, felt dizzy, and had tonic clonic shaking movements per his , this stopped and when EMS arrived he had another shaking episode. He was hypotensive and received fluids. In the ED workup was done, he was initially mildly tachycardic with otherwise normal vitals. WBC 10.2, K 3.0, creatinine 1.7, lactate 4, prolactin 39.8, procalcitonin 0.13, troponin .242->0.441. Lactate 1.9. UA showed protein, occult blood, leuk esterase, many bacteria. COVID negative. Chest xray with no acute process. EKG showed nonspecific t-wave changes. Head CT negative. He was ordered for aspirin, heparin gtt, depakote, keppra. While in the ED he had an episode of chest discomfort with no shortness of breath that improved with nitro. EKG was repeated and was not significantly changed from prior. Attempts were made by ED staff to have patient transferred to higher level of care with cardiology and neurology for his NSTEMI and seizure. This was unsuccessful due to unprecedented volume at other hospitals and because of this he was admitted at this hospital while awaiting transfer. Discharge Providers Provider Date of admission: 06/06/21 15:34 Discharge Date: 06/07/21 Primary care physician: DAVID Becerril Consults: 06/06/21 16:39 Consult to Dietitian, Adult Routine Comment: Reason For Exam: pt says 160lb wt loss in last year 06/06/21 17:25 Consult to Dietitian, Adult Routine Comment: Reason For Exam: pt has lost more than 50 lbs the last 3 months 06/06/21 18:36 Consult to Dietitian, Adult Routine Comment: Reason For Exam: lost more than 30 lbs the last 3 months 06/06/21 19:05 Consult to Dietitian, Adult Routine Comment: Reason For Exam: pt has had 30 lbs weight lost in the last 3 months Discharge provider: Saravanan Yñaez MD Summary Hospital Course Discharge Diagnosis: 1. NSTEMI 2. Seizure possibly related to change in medication 3. UTI 4. TEHRESA 5. History of pacemaker for sick sinus syndrome 6. History of abnormal weight loss 7. History of large cell lymphoma in remission Mr. Sena is a 65M with complicated PMH who presents with 1. NSTEMI in setting of CAD, acute -continues to have intermittent chest pain -troponin peaked at 0.441, trending down to 0.319 this a.m. -EKG nonspecific changes -continue heparin gtt -low-dose metoprolol -ordered for aspirin and statin -ECHO LVEF 40-45% decreased verses steady 04/21/2021, no RWNJ -Dr. Schneider hospitalist at [facility] has accepted patient in transfer so that he can have definitive evaluation and treatment with cardiac catheterization 2. Seizure, acute -recently had switch from keppra to depakote by his [facility] -restarted Keppra and stopped Depakote -will continue keppra for now, as no evidence had breakthrough seizure while on keppra 3. UTI -continue zosyn for now given recurrent UTIs and recent hospitalization -urine culture on admission growing Gram-negative bacilli -follow up urine culture 4. THERESA -baseline creatinine appears near 0.9-1.1 -creatinine on presentation 1.7 -improved to 1.51 with IV fluids, possibly prerenal -significant proteinuria in urine, may benefit from outpatient nephrology 5. History of hematuria -has bladder polyps per previous notes, and has had biopsy that per patient didn't show anything but this was at another hospital -monitor for gross hematuria while on heparin 6. Profound weight loss -etiology not clear, reviewed past CT and no clear source -should follow up with PCP to make sure appropriate cancer screenings performed -may benefit from GI workup/referral 8. Depression/anxiety - was previously on buproprion -not on this currently per med list 9. Hypothyroid -TSH 0.85 -continue synthroid 10. Large cell lymphoma s/p chemo -in remission for years per patient Exam Vital Signs (past 8 hours): - 06/07/21 12:00 Temperature 97.0 F L Pulse Rate 80 Respiratory Rate 17 Blood Pressure 127/81 Pulse Oximetry 100 Oxygen Delivery Method Room Air Oxygen Flow Rate 0 Narrative Exam Narrative: General: Alert, NAD Lungs: Clear to auscultation Heart: Regular rhythm Extremities: No edema Neurological: No seizure activity Objective Labs Result Diagrams: 06/07/21 06:10 06/07/21 06:10 Labs: Laboratory Results - last 24 hr 06/06/21 06/07/21 06/07/21 13:25 00:40 06:10 WBC 6.5 RBC 3.75 L Hgb 11.8 L Hct 36.0 L MCV 96.1 MCH 31.4 MCHC 32.7 RDW 16.0 H Plt Count 172 Neut % (Auto) 64.8 Lymph % (Auto) 27.0 [place] % (Auto) 6.2 Eos % (Auto) 0.9 L Baso % (Auto) 1.1 Neut # (Auto) 4200 Lymph # (Auto) 1700 [place] # (Auto) 400 Eos # (Auto) 100 Baso # (Auto) 100 APTT 94 H* D Sodium Potassium Chloride Carbon Dioxide BUN Creatinine Estimated GFR BUN/Creatinine Ratio Glucose Calcium Troponin I TSH 0.85 06/07/21 06/07/21 06/07/21 06:10 06:10 07:30 WBC RBC Hgb Hct MCV MCH MCHC RDW Plt Count Neut % (Auto) Lymph % (Auto) [place] % (Auto) Eos % (Auto) Baso % (Auto) Neut # (Auto) Lymph # (Auto) [place] # (Auto) Eos # (Auto) Baso # (Auto) APTT 71 H D Sodium 133 L Potassium 4.3 Chloride 104 Carbon Dioxide 24 BUN 24 H Creatinine 1.50 H Estimated GFR 47.3 L BUN/Creatinine Ratio 16.0 Glucose 81 Calcium 8.7 Troponin I 0.319 H* TSH 06/07/21 12:00 WBC RBC Hgb Hct MCV MCH MCHC RDW Plt Count Neut % (Auto) Lymph % (Auto) [place] % (Auto) Eos % (Auto) Baso % (Auto) Neut # (Auto) Lymph # (Auto) [place] # (Auto) Eos # (Auto) Baso # (Auto) APTT 64 H Sodium Potassium Chloride Carbon Dioxide BUN Creatinine Estimated GFR BUN/Creatinine Ratio Glucose Calcium Troponin I TSH [facility] Medical History Acquired hypothyroidism (06/06/16) Depression Essential hypertension (06/06/16) Hematuria History of lymphoma (06/06/16) Migraine without status migrainosus, not intractable (06/06/16) Paroxysmal atrial fibrillation (06/06/16) Pure hypercholesterolemia (06/06/16) Shingles Weakness of both lower extremities (08/02/17) Surgical History History of cholecystectomy History of inguinal hernia repair History of lumbar fusion Family History Mother Pancreatic cancer Father Stroke Social History household members: spouse Smoking Status: Never smoker Discharge Plan Discharge Plan Patient Disposition: [facility] Other facility: [facility] Provider Discharge Comment: [facility] for cardiac cath due to NSTEMI, UTI - culture GNR, final pending, seizure Discharge Health Status Multidrug resistant organism: No MDRO Precautions: [place] Diet/Activity/Treatments Diet: Diet as Tolerated Liquid consistency: Normal/Thin Food texture: Regular Discharge Data Primary Care Provider: Jerad Mar VTE Deep Vein Thrombosis/Pulmonary Embolism Present on Admission: Yes
== END 2021-06-07 14:11 | disposition short-term general hospital (02) | DRG 280 ==
LOC: ED 15:34 → AC 15:35
PROVIDERS: Emergency Medicine; Nurse Practitioner Family; Admitting Provider Internal Medicine; Emergency Provider Emergency Medicine; PCP Nurse Practitioner Family; Referring Provider Emergency Medicine; Visit Provider Internal Medicine
DX: I21.4 Non-ST elevation (NSTEMI) myocardial infarction (principal); E43 Unspecified severe protein-calorie malnutrition; N39.0 Urinary tract infection, site not specified; N17.9 Acute kidney failure, unspecified; R56.9 Unspecified convulsions; E03.9 Hypothyroidism, unspecified; I25.10 Atherosclerotic heart disease of native coronary artery without angina pectoris; I10 Essential (primary) hypertension; Z20.822 Contact with and (suspected) exposure to COVID-19; Z68.28 Body mass index [BMI] 28.0-28.9, adult
CPT/HCPCS: 36415; 51798; 70450; 71045; 80048; 80053; 81001; 82550; 82553; 83605; 83880; 84145; 84146; 84443; 84484; 85025; 85610; 85730; 87040; 87077; 87086; 87186; 87635; 93005; 93010; 93306; 94762; 96361; 96365; 96366; 96367; 96368; 96375; 99285; 99291; C9803; J1644; J1953; J2543

== ENCOUNTER 2022-01-01 15:26 | Emergency (ER) | payer OTHER, SELFPAY ==
[2021-06-06 17:20] VITALS: BMI 28.4
[2022-01-01 15:32] VITALS: BP 175/81; PULSE 74; RESP 18; TEMP 36.3; O2SAT 98; BMI 31.8
--- NOTE | 2022-01-01 15:41 | ED.ANIMALBIT ---
HPI - Animal Bite General Chief Complaint: Animal Bite Stated Complaint: Dog bit off ear lobe Time Seen by Provider: 01/01/22 15:29 Source: patient and EMS Mode of arrival: EMS History of Present Illness HPI narrative: Patient is a 66-year-old male history with coronary artery disease with stents presenting after dog bite. He said he was in his garage when a stray dog came up to him the dog initially seemed nice but then went to bite his face and got his ear lobe. His they brought the ear lobe and is currently on ice. Patient is requesting a tetanus shot. He does not need anything for pain at this time. Related Data Home Medications Medication Instructions Recorded Confirmed atorvastatin 40 mg tablet 40 mg PO HS #0 tab 06/06/16 06/06/21 bisacodyl 5 mg tablet (Correctol) 5 mg PO DAILY PRN #0 06/06/16 06/06/21 cholecalciferol (vitamin D3) 25 1,000 unit PO QDAY #0 tab 06/06/16 06/06/21 mcg (1,000 unit) tablet (Vitamin D3) levothyroxine 150 mcg tablet 150 mcg PO QAM #0 tab 06/06/16 06/06/21 (Levoxyl) valacyclovir 500 mg tablet 500 mg PO QDAY #0 tab 06/06/16 06/06/21 cyclobenzaprine 10 mg tablet 10 mg PO TIDP PRN #0 02/21/17 06/06/21 divalproex 500 mg tablet,extended 1,000 mg PO DAILY 06/06/21 06/06/21 release 24 hr mecobalamin (vitamin B12) 1,000 1,000 mcg PO DAILY 06/06/21 06/06/21 mcg disintegrating tablet,sublingual Previous Rx's Medication Instructions Recorded allopurinol 300 mg tablet 300 mg PO QDAY #90 tab 12/22/17 ondansetron 4 mg disintegrating 4 mg PO Q6HR PRN #10 tab 06/05/21 tablet amoxicillin 875 mg-potassium 1 tab PO BID #20 tab 01/01/22 clavulanate 125 mg tablet Allergies Allergy/AdvReac Type Severity Reaction Status Date / Time oxycodone [From PERCOCET] Allergy Unknown Verified 06/06/21 05:07 Review of Systems Review of Systems Narrative: GENERAL: Denies chills,fever HEENT: Denies throat pain RESPIRATORY: Denies dyspnea, cough, wheezing CARDIOVASCULAR: Denies chest pain, palpitations GASTROINTESTINAL: Denies nausea, vomiting MUSCULOSKELETAL: Denies extremity pain, injury SKIN: See HPI NEUROLOGIC: Denies weakness, dizziness, headache, numbness 8 point review of systems is negative except for those stated above and HPI Patient History Medical History Acquired hypothyroidism (06/06/16) Depression Essential hypertension (06/06/16) Hematuria History of lymphoma (06/06/16) Migraine without status migrainosus, not intractable (06/06/16) Paroxysmal atrial fibrillation (06/06/16) Pure hypercholesterolemia (06/06/16) Shingles Weakness of both lower extremities (08/02/17) Surgical History History of cholecystectomy History of inguinal hernia repair History of lumbar fusion Family History Mother Pancreatic cancer Father Stroke Social History household members: spouse Smoking Status: Never smoker Smoking Status: Never smoker alcohol intake frequency: holidays/special occasions only Substance Use Type: does not use Exam Initial Vital Signs Initial Vital Signs: Vital Signs Temperature 97.4 F L 01/01/22 15:32 Pulse Rate 74 01/01/22 15:32 Respiratory Rate 18 01/01/22 15:32 Blood Pressure 175/81 H 01/01/22 15:32 Pulse Oximetry 98 01/01/22 15:32 GENERAL: Very pleasant well-appearing 66-year-old CARDIOVASCULAR: peripheral pulses in tact, cap refill <2 sec RESPIRATORY: No respiratory distress, speaks in full sentences without difficulty [ABDOMEN: Soft, nontender, no guarding or rebound] EXTREMITIES: Normal range of motion, no clubbing or edema. Neurovascularly intact NEUROLOGICAL: Cranial nerves II through XII grossly intact. Normal gait and speech. SKIN: Warm, dry, no petechiae, no rashes or lesions. Skin Ear Left: 1. Area has been removed. Course Orders Ordered: Discontinued Medications Amoxicillin/Clavulanate Potassium (Amoxicillin/Clav 875/125 Mg) 1 tab PO NOW ONE Stop: 01/01/22 15:48 Last Admin: 01/01/22 15:51 Dose: 1 tab Documented by: MARIO Diphtheria/Tetanus/Acell Pertussis (Tet,Diph,Pertuss(Acell),Vac/Pf 0.5 Ml Syringe) 0.5 ml IM .ONCE ONE Stop: 01/01/22 15:40 Last Admin: 01/01/22 15:48 Dose: 0.5 ml Documented by: MARIO Vital Signs Vital signs: Vital Signs - 8 hr 01/01/22 15:32 01/01/22 16:24 Temperature 97.4 F L Pulse Rate 74 74 Respiratory Rate 18 16 Blood Pressure 175/81 H 170/80 H Pulse Oximetry 98 97 MDM - Animal Bite MDM Narrative Medical decision making narrative: Ear lobe on ice however probably not salvageable. Not sure if there are other techniques to help ear in current state. Need ENT evaluation. [id number]-Dr. Proctor, ENT, has been consult. Says the earlobe is probably not reattachable. He agrees to see patient at [facility] in the ED. Discharge Plan Departure Patient Disposition: Home Clinical Impression: Dog bite of left ear Instructions: DI for Animal Bites Activity Restrictions/Additional Instructions: Go directly to [facility] Dr. Proctor is they ENT who will see you in the emergency department Take Augmentin twice a day for 10 days May take Tylenol 1000 mg every 6 hours if needed for [id number] Please return to nearest emergency department if you should have any swelling redness fever or any other symptoms. Prescriptions: New amoxicillin-pot clavulanate 875-125 mg tablet 1 tab PO BID Qty: 20 0RF No Action atorvastatin 40 MG tablet 40 mg PO HS Qty: 0 0RF Correctol 5 MG tablet 5 mg PO DAILY PRN (Reason: Constipation) Qty: 0 0RF levothyroxine [Levoxyl] 150 MCG tablet 150 mcg PO QAM Qty: 0 0RF valacyclovir 500 MG tablet 500 mg PO QDAY Qty: 0 0RF cholecalciferol (vitamin D3) [Vitamin D3] 1,000 UNIT tablet 1,000 unit PO QDAY Qty: 0 0RF cyclobenzaprine 10 MG tablet 10 mg PO TIDP PRN (Reason: Muscle Pain) Qty: 0 0RF allopurinol 300 MG tablet 300 mg PO QDAY Qty: 90 3RF ondansetron 4 mg tablet,disintegrating 4 mg PO Q6HR PRN (Reason: nausea and vomiting) Qty: 10 0RF mecobalamin (vitamin B12) 1,000 mcg Tablet,Disintegrating 1,000 mcg PO DAILY 0RF Rx Instructions: unable to confirm dose divalproex 500 mg tablet extended release 24 hr 1,000 mg PO DAILY 0RF Label Comments: TAKE 2 TABLETS BY MOUTH ONCE DAILY. ANTISEIZURE REPLACES KEPPRA. Referrals: Kelvin Proctor MD [Physician] - Jerad Mar ARNP [Primary Care Provider] -
[2022-01-01] MEDS: TET,DIPH,PERTUSS(ACELL),VAC/PF 0.5 ML SYRINGE IM (15:48)
[2022-01-01] MEDS: AMOXICILLIN/CLAV 875/125 MG 1 TAB PO (15:51)
[2022-01-01 16:24] VITALS: BP 170/80; PULSE 74; RESP 16; O2SAT 97
== END 2022-01-01 16:27 | disposition home or self-care (01) ==
PROVIDERS: Emergency Provider Emergency Medicine; PCP Nurse Practitioner Family
DX: S01.352A Open bite of left ear, initial encounter (principal); W54.0XXA Bitten by dog, initial encounter; Z23 Encounter for immunization
CPT/HCPCS: 90471; 99283; 99284; 90715